=== PATIENT | female | born 1980 | race Caucasian/White ===

== ENCOUNTER 2018-11-03 10:09 | Inpatient (IN) ==
[2018-11-03 10:52] LABS: Basophils # (auto) 0.03 K/uL (0-0.2); Basophils % (auto) 0.4 %; Eosinophils # (auto) 0.06 K/uL (0-0.5); Eosinophils % (auto) 0.8 %; Hemoglobin 14.5 g/dL (12.0-16.0); Immature Granulocytes # (auto) 0.01 K/uL (0.00-0.02); Immature Granulocytes % (auto) 0.1 %; Lymphocytes # (auto) 1.79 K/uL (1.2-3.4); Lymphocytes % (auto) 24.4 %; Mean Corpuscular Hgb Conc 33.7 g/dL (32-36); Mean Corpuscular Volume 88.3 fL (80-100); Monocytes # (auto) 0.74 K/uL (0.11-0.59); Monocytes % (auto) 10.1 %; Neutrophils # (auto) 4.71 K/uL (1.4-6.5); Neutrophils % (auto) 64.2 %; Platelet Count 344 K/uL (130-400); RDW Coefficient of Variation 14.2 % (11.5-14.5); Red Blood Count 4.87 M/uL (4.2-5.4); White Blood Count 7.34 K/uL (4.8-10.8)
[2018-11-03 10:55] LABS: Appearance Urine Clear (Clear); Bacteria Urine Automated 1+ (Negative); Bilirubin Urine Negative (Negative); Blood Urine Negative (Negative); Cast Urine Automated 0 /lpf (0-5); Color Urine Yellow; Epithelial Cell Urine Auto >30 /lpf (0-5); Glucose Urine UA Negative (Negative); Ketones Urine Negative (Negative); Leukocyte Esterase Urine Trace (Negative); Nitrite Urine Negative (Negative); Protein Urine Negative (Negative); Specific Gravity Urine 1.013 (1.000-1.030); Urobilinogen Urine Negative (Negative); pH Urine 6.5 (4.5-7.5)
[2018-11-03 11:00] LABS: Albumin Level 3.6 gm/dl (3.4-5.0); BUN Creatinine Ratio 16.8 (10-20); Calcium 8.6 mg/dl (8.5-10.1); Est GFR (African American) 104.5; Est GFR (Non-African American) 90.1; Potassium 3.7 mmol/L (3.5-5.1)
[2018-11-03 11:06] LABS: Bilirubin,Total 0.4 mg/dl (0.2-1); Globulin 3.7 gm/dl (2.5-4.0); Total Protein 7.3 gm/dl (6.4-8.2)
[2018-11-03 11:09] LABS: RBC Urine Automated 0-4 /hpf (0-4)
[2018-11-03] MEDS ORDERED: KETOROLAC TROMETHAMINE 15 MG/ML VIAL IV STA (11:18)
[2018-11-03] MEDS ORDERED: ONDANSETRON INJ 2 MG/ML 2 ML VIAL IV STA (11:18)
[2018-11-03] MEDS: SODIUM CHLORIDE 0.9% 1000ML 1,000 ML IV SCH ×2 (11:27→13:53)
[2018-11-03] MEDS ORDERED: IOVERSOL 100ml IV PRN (11:33)
--- NOTE | 2018-11-03 11:49 | CT Scan Report ---
CT abd pelvis IV con only CLINICAL HISTORY: Abdominal pain, vomiting, diarrhea. COMPARISON STUDY: None. TECHNIQUE: The patient was scanned in a dynamic helical fashion during intravenous administration of 94 cc of Optiray 320 A dose lowering technique was utilized adhering to the principles of ALARA. CT DOSE: 1118.87 mGycm FINDINGS: Lower chest: Minimal groundglass dependent opacities are likely atelectatic. There are trace pleural effusions. Liver: The contrast-enhanced liver is normal in size, contour, and attenuation. There is no intrahepa tic biliary ductal dilatation. The hepatic veins and portal veins are patent. Gallbladder: No gallstones are visualized. There is mild gallbladder wall thickening/pericholecystic fluid. Spleen: Normal in size and attenuation. Pancreas: Unremarkable. Adrenal glands: Unremarkable. Kidneys: Subcentimeter renal hypodensities are felt to represent cysts. No solid renal masses are vis ualized. There is no hydronephrosis. Bowel: There are no transition zones indicate bowel obstruction. The appendix appears normal. There i s no acute diverticulitis. Peritoneum: There is trace free pelvic fluid. There is no free intraperitoneal air. Vasculature: The abdominal aorta is normal in course and caliber. Adenopathy: None. Pelvic viscera: The bladder, and pelvic viscera are unremarkable. Skeletal structures: No destructive lesions are visualized. Mild arthritic changes are present within the sacroiliac joints. IMPRESSION: 1. No evidence of bowel obstruction. No evidence of free air 2. Normal appendix 3. No evidence of acute diverticulitis 4. Mild gallbladder wall thickening/pericholecystic fluid. No gallbladder distention. No calculi visu alized on CT scanning. Electronically signed by: Tomy Ndiaye M.D. 11/03/2018 11:48 AM
[2018-11-03] MEDS ORDERED: MoRPHine SULFATE 4 MG/ML 1 ML CARP\\VIAL IV STA (11:56)
--- NOTE | 2018-11-03 12:14 | Emergency Department Note ---
History of Present Illness General Chief complaint: Vomiting Stated complaint: VOMITING Time Seen by Provider: 11/03/18 10:56 History of Present Illness Maximum Pain Intensity: 7 Patient is a 38-year-old female who with no significant past medical history who presents to the emergency department accompanied by her for evaluation of diffuse abdominal pain, nausea, vomiting and diarrhea x4 days. Patient states that she had the gradual onset of diffuse abdominal discomfort on , with associated nausea and vomiting. The pain was throughout her entire abdomen. She reports multiple episodes of yellowish, bitter tasting vomit and greenish diarrhea, with associated nausea and belching. She felt a little bit better on Saturday, then her symptoms worsened again last evening. She states the pain is now worse and located in the left upper quadrant and in the right upper quadrant and in the middle of her abdomen, and she currently rates it an 8/10. She denies any melena, hematochezia or hematemesis. She last vomited this morning at 0530, her last diarrhea was yesterday. She has been on a fairly restricted diet for the last several months and has resulted in over 50 pounds weight loss. She has been taking a lot of vitamins, herbals and supplements. She reports that her has not been ill, she denies any unusual food or water consumption, recent antibiotic use or foreign travel. 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 Patient denies any history of GI issues. She does report that her mother had her gallbladder removed. She denies any urinary symptoms. Last menstrual period was normal, and it was 1 week ago. She does report that she could be . Home Medications Home Medications Medication Instructions Recorded Confirmed Type Liver Support 1 tab PO DAILY 11/03/18 11/03/18 History bee pollen 550 mg PO UD 11/03/18 11/03/18 History coenzyme Q10 [CoQ-10] 30 mg PO Q2D 11/03/18 11/03/18 History lactobacillus combination no.4 3,000 mmu cells PO DAILY 11/03/18 11/03/18 History [Probiotic] multivitamin 1 tab PO DAILY 11/03/18 11/03/18 History simethicone [Phazyme] 250 mg PO DAILY PRN 11/03/18 11/03/18 History Allergies Allergy/AdvReac Type Severity Reaction Status Date / Time azithromycin AdvReac Severe itchy Unverified 11/03/18 11:05 swollen body ~ difficulty breathing procaine [From Novocain] AdvReac Intermediate Patient Unverified 11/03/18 11:05 states it just doesn't work tuberculin,PPD,multi-puncture AdvReac Intermediate red~itchy~s Unverified 11/03/18 11:05 wolnay Past Med/Surg History Medical History No significant past medical history (Chronic) Surgical History No significant past surgical history (Chronic) Family History Other Cancer Diabetes Social History Preferred Language: Hungarian Communication Ability: Effective Salvage Diver Required: No Beliefs That Will Affect Care: None marital status: Current Living Situation: Spouse Feels Safe at Home: Yes Smoking Status: Never smoker Second Hand Exposure: No ; Hx Alcohol Use: No Hx Substance Use: No during the past year weight has: decreased > 10 lbs Review of Systems A total of 10 systems reviewed and were otherwise negative Physical Exam Vital Signs Vital Signs - 24 hr 11/03/18 10:11 11/03/18 11:53 Temperature 36.9 C Temperature Source Oral Sepsis Recent Fever Within 48 Hours No Sepsis Action Taken by Nursing No Action Required Pulse Rate 86 Pulse Rate [Apical] 52 L Respiratory Rate 18 18 Blood Pressure 190/100 H Blood Pressure [Left Arm] 113/78 Blood Pressure Mean 130 Blood Pressure Mean [Left Arm] 89 Pulse Oximetry 100 100 Oxygen Delivery Method Room Air Room Air CONSTITUTIONAL: Patient is an uncomfortable although nontoxic appearing 38-year-old female who is awake and alert and in mild distress due to her abdominal discomfort. EYES: Pupils equal, round, reactive to light and accommodation. EOMs intact without nystagmus. Sclera are anicteric. ENT: Tympanic membranes intact, with normal landmarks. External canals are clear. Oral and nasopharynx are clear. Mucous membranes are moist, no lesions, tongue and gums appear normal. NECK: Supple without lymphadenopathy. No thyromegaly. No meningeal signs. Full active range of motion without discomfort. CARDIOVASCULAR: Regular rate and rhythm, with normal S1 and S2, no murmur or gallop or rub is heard. No carotid bruits auscultated. No JVD. Peripheral pulses easily palpable. RESPIRATORY: Breath sounds equal and clear to auscultation without wheezes, rales, or rhonchi heard. Full and equal chest expansion without accessory muscle use or retractions. ABDOMEN: Bowel sounds are present. Abdomen is soft, obese, nondistended, mildly tender to percussion throughout. She is tender in the epigastric and the left upper quadrant. No significant pain in the right upper quadrant. Negative Duncan sign. She is also tender in the mid abdomen and suprapubic region withou t guarding or rebound. INTEGUMENTARY: No lesions or rash, normal skin turgor. LYMPH: No lymphadenopathy. Course The patient was seen and assessed as above. She has no old records for review. IV lock was initiated and laboratory studies were collected. She was hydrated with normal saline solution. She was medicated with Toradol 15 mg IV, later was given morphine 4 mg IV and Zofran 4 mg IV. CBC with differential, CMP, lipase, urinalysis and urine test were collected. Given the patient's diffuse abdominal pain, CT scan with IV contrast was ordered. Laboratory studies noted a normal white count at 7300, no left shift or bandemia . H&H is 15 and 43. Electrolytes are within normal limits. BUN and creatinine 14 and 0.82. Total bilirubin is normal, transaminases are elevated, AST 403, ALT 351 and alk phos 167. Patient's lipase is markedly elevated at 35,900. Urine sample noted trace leuk esterase and 1+ bacteria, urine test is negative. CT scan of the abdomen and pelvis with IV contrast noted mild gallbladder wall thickening/pericholecystic fluid, with no visualized gallstones or gallbladder distention. Pancreas was also visualized and was normal. Remainder of the CT was unremarkable. All laboratory and diagnostic imaging studies were discussed with the patient and her spouse. Laboratory and diagnostic imaging studies were reviewed with Dr. Skelton, and admission was discussed with the manager community outreach. I did review the patient with Dr. Serrano with the [facility], she did ask that a gallbladder ultrasound be obtained, this was ordered by myself. Patient was admitted to the hospitalist service for acute pancreatitis. Administered Medications Lactated Ringer's (Lr) 1,000 mls @ 250 mls/hr IV .Q4H PARK Stop: 11/04/18 02:29 Last Admin: 11/03/18 14:26 Dose: 250 mls/hr Documented by: [id number] Ioversol (Optiray 320 100ml) 94 ml IV ONCE PRN PRN Reason: Interaction Checking Stop: 11/07/18 11:32 Last Admin: 11/03/18 11:33 Dose: 94 ml Documented by: [id number] Discontinued Medications Sodium Chloride (Nss 1000ml) 1,000 mls @ 999 mls/hr IV .Q1H1M PARK Stop: 11/03/18 13:19 Last Admin: 11/03/18 13:53 Dose: 999 mls/hr Documented by: [id number] Infusion: 11/03/18 12:58 Dose: 0 mls/hr Documented by: [id number] Admin: 11/03/18 11:27 Dose: 999 mls/hr Documented by: [id number] Ketorolac Tromethamine (Toradol) 15 mg IV NOW STA Stop: 11/03/18 11:19 Last Admin: 11/03/18 11:28 Dose: 15 mg Documented by: [id number] Morphine Sulfate (Morphine Sulfate) 4 mg IV NOW STA Stop: 11/03/18 11:57 Last Admin: 11/03/18 12:08 Dose: 4 mg Documented by: [id number] Ondansetron HCl (Zofran) 4 mg IV NOW STA Stop: 11/03/18 11:19 Last Admin: 11/03/18 11:28 Dose: 4 mg Documented by: [id number] Medical Decision Making Differential Diagnosis Differential diagnoses include reflux, gastritis, gastroenteritis, pancreatitis, cholelithiasis, cholecystitis, appendicitis, mesenteric ischemia, pyelonephritis, urinary tract infection, renal colic, diverticulitis, shingles, bowel obstruction, intussusception, hernia, ovarian torsion, ruptured ovarian cyst, ectopic , . Medical Records Attestation: I reviewed the patient's medical records. Home Medications Current Medication List: was personally reviewed by me Laboratory Data Attestation: I reviewed the patient's lab results. Result diagrams: 11/03/18 10:28 11/03/18 10:28 Lab Results 11/03/18 11/03/18 11/03/18 Range/Units 10:28 10:28 10:28 WBC 7.34 (4.8-10.8) K/uL RBC 4.87 (4.2-5.4) M/uL Hgb 14.5 (12.0-16.0) g/dL Hct 43.0 (37-47) % MCV 88.3 (80-100) fL MCH 29.8 (25-34) pg MCHC 33.7 (32-36) g/dL RDW Std Deviation 46.0 (36.4-46.3) fL RDW Coeff of Josseline 14.2 (11.5-14.5) % Plt Count 344 (130-400) K/uL MPV 11.0 H (7.4-10.4) fL Immature Gran % (Auto) 0.1 % Neut % (Auto) 64.2 % Lymph % (Auto) 24.4 % Emanuel % (Auto) 10.1 % Eos % (Auto) 0.8 % Baso % (Auto) 0.4 % Immature Gran # (Auto) 0.01 (0.00-0.02) K/uL Neut # (Auto) 4.71 (1.4-6.5) K/uL Lymph # (Auto) 1.79 (1.2-3.4) K/uL Emanuel # (Auto) 0.74 H (0.11-0.59) K/uL Eos # (Auto) 0.06 (0-0.5) K/uL Baso # (Auto) 0.03 (0-0.2) K/uL Sodium 142 (136-145) mmol/L Potassium 3.7 (3.5-5.1) mmol/L Chloride 108 H (98-107) mmol/L Carbon Dioxide 27 (21-32) mmol/L Anion Gap 7.0 (3-11) BUN 14 (7-18) mg/dl Creatinine 0.82 (0.6-1.2) mg/dl Est Cr Clr Drug Dosing 113.0 ml/min Est GFR ( Amer) 104.5 Est GFR (Non-Af Amer) 90.1 BUN/Creatinine Ratio 16.8 (10-20) Glucose 85 (70-99) mg/dl Calcium 8.6 (8.5-10.1) mg/dl Total Bilirubin 0.4 (0.2-1) mg/dl AST 403 H (15-37) U/L ALT 351 H (12-78) U/L Alkaline Phosphatase 167 H (45-117) U/L Total Protein 7.3 (6.4-8.2) gm/dl Albumin 3.6 (3.4-5.0) gm/dl Globulin 3.7 (2.5-4.0) gm/dl Albumin/Globulin Ratio 1.0 (0.9-2) Lipase 83596 H (73-393) U/L Urine Color Urine Appearance (Clear) Urine pH (4.5-7.5) Ur Specific [place] (1.000-1.030) Urine Protein (Negative) Urine Glucose (UA) (Negative) Urine Ketones (Negative) Urine Blood (Negative) Urine Nitrite (Negative) Urine Bilirubin (Negative) Urine Urobilinogen (Negative) Ur Leukocyte Esterase (Negative) Urine WBC (Auto) (0-5) /hpf Urine RBC (Auto) (0-4) /hpf U Hyaline Cast (Auto) (0-5) /lpf U Epithel Cells (Auto) (0-5) /lpf Urine Bacteria (Auto) (Negative) POC Ur Test NEG (NEG) 11/03/18 Range/Units 10:28 WBC (4.8-10.8) K/uL RBC (4.2-5.4) M/uL Hgb (12.0-16.0) g/dL Hct (37-47) % MCV (80-100) fL MCH (25-34) pg MCHC (32-36) g/dL RDW Std Deviation (36.4-46.3) fL RDW Coeff of Josseline (11.5-14.5) % Plt Count (130-400) K/uL MPV (7.4-10.4) fL Immature Gran % (Auto) % Neut % (Auto) % Lymph % (Auto) % Emanuel % (Auto) % Eos % (Auto) % Baso % (Auto) % Immature Gran # (Auto) (0.00-0.02) K/uL Neut # (Auto) (1.4-6.5) K/uL Lymph # (Auto) (1.2-3.4) K/uL Emanuel # (Auto) (0.11-0.59) K/uL Eos # (Auto) (0-0.5) K/uL Baso # (Auto) (0-0.2) K/uL Sodium (136-145) mmol/L Potassium (3.5-5.1) mmol/L Chloride (98-107) mmol/L Carbon Dioxide (21-32) mmol/L Anion Gap (3-11) BUN (7-18) mg/dl Creatinine (0.6-1.2) mg/dl Est Cr Clr Drug Dosing ml/min Est GFR ( Amer) Est GFR (Non-Af Amer) BUN/Creatinine Ratio (10-20) Glucose (70-99) mg/dl Calcium (8.5-10.1) mg/dl Total Bilirubin (0.2-1) mg/dl AST (15-37) U/L ALT (12-78) U/L Alkaline Phosphatase (45-117) U/L Total Protein (6.4-8.2) gm/dl Albumin (3.4-5.0) gm/dl Globulin (2.5-4.0) gm/dl Albumin/Globulin Ratio (0.9-2) Lipase (73-393) U/L Urine Color Yellow Urine Appearance Clear (Clear) Urine pH 6.5 (4.5-7.5) Ur Specific [place] 1.013 (1.000-1.030) Urine Protein Negative (Negative) Urine Glucose (UA) Negative (Negative) Urine Ketones Negative (Negative) Urine Blood Negative (Negative) Urine Nitrite Negative (Negative) Urine Bilirubin Negative (Negative) Urine Urobilinogen Negative (Negative) Ur Leukocyte Esterase Trace H (Negative) Urine WBC (Auto) 1-5 (0-5) /hpf Urine RBC (Auto) 0-4 (0-4) /hpf U Hyaline Cast (Auto) 0 (0-5) /lpf U Epithel Cells (Auto) >30 H (0-5) /lpf Urine Bacteria (Auto) 1+ H (Negative) POC Ur Test (NEG) Imaging Data Attestation: I personally reviewed and interpreted this imaging study as follows: Radiologist's Impression: CT abd pelvis IV con only CLINICAL HISTORY: Abdominal pain, vomiting, diarrhea. COMPARISON STUDY: None. TECHNIQUE: The patient was scanned in a dynamic helical fashion during intrave nous administration of 94 cc of Optiray 320 A dose lowering technique was utilized adhering to the principles of ALARA. CT DOSE: 1118.87 mGycm FINDINGS: Lower chest: Minimal groundglass dependent opacities are likely atelectatic. There are trace pleural effusions. Liver: The contrast-enhanced liver is normal in size, contour, and attenuation. There is no intrahepatic biliary ductal dilatation. The hepatic veins and portal veins are patent. Gallbladder: No gallstones are visualized. There is mild gallbladder wall thickening/pericholecystic fluid. Spleen: Normal in size and attenuation. Pancreas: Unremarkable. Adrenal glands: Unremarkable. Kidneys: Subcentimeter renal hypodensities are felt to represent cysts. No solid renal masses are visualized. There is no hydronephrosis. Bowel: There are no transition zones indicate bowel obstruction. The appendix appears normal. There is no acute diverticulitis. Peritoneum: There is trace free pelvic fluid. There is no free intraperitoneal air. Vasculature: The abdominal aorta is normal in course and caliber. Adenopathy: None. Pelvic viscera: The bladder, and pelvic viscera are unremarkable. Skeletal structures: No destructive lesions are visualized. Mild arthritic changes are present within the sacroiliac joints. IMPRESSION: 1. No evidence of bowel obstruction. No evidence of free air 2. Normal appendix 3. No evidence of acute diverticulitis 4. Mild gallbladder wall thickening/pericholecystic fluid. No gallbladder dist ention. No calculi visualized on CT scanning. US gallbladder CLINICAL HISTORY: Right upper quadrant pain. Evaluate for acute cholecystitis. COMPARISON STUDY: CT of the abdomen and pelvis November 13, 2018. FINDINGS: This exam is compromised by suboptimal penetration. Liver is sonographically normal. There is no biliary ductal dilatation. The common bile duct measures 3 mm in caliber. The pancreas is within normal limits. Multiple gallstones are noted within the gallbladder. No sonographic Duncan sign was elicited. Mild gallbladder wall thickening is noted. The wall measures 4 mm in thickness. No adjacent fluid was noted. There is no right hydronephrosis. IMPRESSION: 1. Cholelithiasis and mild gallbladder wall thickening. No sonographic Duncan sign. Acute cholecystitis cannot be excluded and a hepatobiliary scan could be obtained if indicated. 2. No biliary ductal dilatation. Blood Pressure Blood Pressure Findings: Normal blood pressure Blood Pressure Disposition: did not require urgent referral MDM Narrative See ED Course. Impression & Plan Acute pancreatitis Discharge Plan Visit Data *Final* Discharge Date/Time: 11/03/18 13:54 Chief Complaint: Vomiting Stated Complaint: VOMITING ED Provider: Shilo Skelton ED Midlevel Provider: Brock Mitchell Discharge Problem: Acute pancreatitis Patient Disposition: Admitted As Inpatient Discharge Instructions Interventions: ED Discharge Assessment Last Done: 11/03/18 13:54 Discharge Problem: Acute pancreatitis Qualifiers: Pancreatitis type: unspecified pancreatitis type Acute pancreatitis complication: no infection or necrosis Qualified Code(s): K85.90 - Acute pancreatitis without necrosis or infection, unspecified
--- NOTE | 2018-11-03 13:20 | History & Physical Report ---
Date of Service November 03, 2018 Assessment & Plan (1) Acute pancreatitis: Patient presenting with abdominal pain, nausea, vomiting, diarrhea. Lipase = 35,941. Patient is tender in the epigastric area. CT with no evidence of pancreatic inflammation. Admit to medical floor Check right upper quadrant ultrasound. Additional imaging such as MRCP pending results of ultrasound. Keep n.p.o. Aggressive IV fluids, LR at 250 mL/h x 3 L Zofran as needed for nausea Morphine as needed for pain GI consultation. Appreciate assistance with this case -Repeat LFTs in a.m. Present on Admission?: Yes (2) Abnormal liver function test: Patient with elevation of AST and ALT to 403 and 351, respectively. Also with elevation of alkaline phosphatase = 167. Total bilirubin is within normal range. Patient denies alcohol or Tylenol use. No known exposure to contaminated foods. -Check Tylenol level -Check acute hepatitis panel -Check INR -Right upper quadrant ultrasound as above -GI consultation as above -Repeat LFTs in a.m. Present on Admission?: Yes (3) Obesity (BMI 35.0-39.9 without comorbidity): Patient with BMI of 37.5. She is presently on a restrictive diet and is eating only protein/vegetables/fruit. Also on very tight calorie restriction of 600 to 650 pete/day. Discussed with her that this is too restrictive and may actually lead to health complications. She is also been experiencing some dizziness with positional changes as well as poor balance. -Check orthostatic vital signs x1 -Check B12 and folate -Patient should be encouraged to continue with her positive life changes to include healthy diet, limitation of carbohydrates and sugar and increased physical exercise. However, concerned that she has been too restrictive possibly leading to low blood sugar, orthostasis and nutritional deficiencies. Consider nutrition consult to be deferred to the primary team. FENLR at 250 mL/h x 3 L, electrolytes within normal limits, check magnesium and phosphorus x1, n.p.o. for now in setting of acute pancreatitis Prophylaxispatient is low risk for DVT. IV fluids as above and encourage ambulation as tolerated. Codefull per discussion with patient. at bedside Dispositionadmission to medical floor for acute pancreatitis and abnormal liver studies History of Present Illness Chief Complaint: Abdominal pain, nausea, vomiting, diarrhea Primary Care Provider: NO PCP Shirley Arita is a 38-year-old female with no significant past medical or surgical history presenting with nausea/vomiting/diarrhea/abdominal pain. Patient reports that 2 weeks ago she developed diffuse mild abdominal pain with bloating and an increase in eructation and flatulence. She started taking simethicone daily for relief. On 10/28 she was in the garden when she had a "blackout". She states that her vision went dark and she was unable to see for short time. On 10/30 she developed severe diffuse abdominal pain, 10 out of 10 in severity, worse in the epigastric region and left upper quadrant. She also started vomiting, multiple episodes of nonbloody emesis. She reports vomiting in the evening and throughout the night and is mostly ingested food as well as yellow liquid. Diarrhea began night as well. Large volume of yellow liquid stools, 8-10 episodes, nonbloody. She has poor appetite and decreased p.o. intake. Yesterday, 11/02 she had a near syncopal episode while in religious. Her mother gave her a Validol tab (Menthyl isovalerate - hypnotic/sedative agent used in [place]). She reports frequent dizziness over the last few weeks mostly with positional changes as well as diffuse weakness. Patient has been on a strict diet since May. She eats only protein/meat, vegetables and limited fruits. She has not been eating carbohydrates, dairy, alcohol or sugar. She reports losing approximately 53 pounds since May. She is also been on a strict calorie restriction, 600 to 650 pete/day. She has been taking supplements while on her diet to include B pollen, co-Q10, probiotic and Liver Support. She recently added dairy back into her diet in the form of milk yogurt which she has been eating in small amounts. Presently she is complaining of abdominal pain mostly in the epigastric and left upper quadrant region. Also complaining of constipation. Reports her last episode of flatus was yesterday morning and her last bowel movement was yesterday at 1400. Also with complaint of dysuria. ER course: Toradol 50 mill grams IV, morphine 4 mg IV, Zofran 4 mg IV, normal saline 1 L Allergies Allergy/AdvReac Type Severity Reaction Status Date / Time azithromycin AdvReac Severe itchy Unverified 11/03/18 11:05 swollen body ~ difficulty breathing procaine [From Novocain] AdvReac Intermediate Patient Unverified 11/03/18 11:05 states it just doesn't work tuberculin,PPD,multi-puncture AdvReac Intermediate red~itchy~s Unverified 11/03/18 11:05 bogdan Home Medications Home Medications Medication Instructions Recorded Confirmed Type Liver Support 1 tab PO DAILY 11/03/18 11/03/18 History bee pollen 550 mg PO UD 11/03/18 11/03/18 History coenzyme Q10 [CoQ-10] 30 mg PO Q2D 11/03/18 11/03/18 History lactobacillus combination no.4 3,000 mmu cells PO DAILY 11/03/18 11/03/18 History [Probiotic] multivitamin 1 tab PO DAILY 11/03/18 11/03/18 History simethicone [Phazyme] 250 mg PO DAILY PRN 11/03/18 11/03/18 History Past Med/Surg History Medical History No significant past medical history No significant past surgical history Family History Other Cancer Diabetes Social History Communication Ability: Effective marital status: Current Living Situation: Spouse Feels Safe at Home: Yes Smoking Status: Never smoker Hx Alcohol Use: No Hx Substance Use: No during the past year weight has: decreased > 10 lbs Review of Systems Review of Systems: All systems reviewed & are unremarkable except as noted in HPI & below Physical Exam Physical Exam: General: patient resting comfortably, NAD, non-toxic in appearance, AA&O x 4 Skin: warm, dry, intact, no rashes or lesions, no jaundice HEENT: NC/AT, PERRL, EOMI, anicteric sclera, conjunctiva without injection, external ear normal to inspection and nontender, nares patent, slightly dry mucus membranes, dentition intact, no oropharyngeal lesions, neck supple, trachea midline, no LAD, no thyromegaly, no JVD Heart: +S1/S2, regular, bradycardic, no m/r/g Lungs: equal air entry bilaterally, no rales/rhonchi/wheezes Abd: +BS, soft, ND, diffusely tender with deep palpation, no rebound/guarding/peritoneal signs, no masses/organomegaly/ascites Ext: warm, 2+ pulses in UE/LE bilaterally, no clubbing/cyanosis or edema Neuro: nonfocal, patient AA&O x 4, speech intact, no facial droop, moving all extremities on command with equal strength 5/5 Results & Data Vital Signs (Past 12 Hours) Vital Signs Temp Pulse Pulse Resp BP BP Pulse Ox 11/03/18 11:53 52 L 18 113/78 100 11/03/18 10:11 36.9 C 86 18 190/100 H 100 Laboratory Results Lab Results 11/03/18 11/03/18 11/03/18 Range/Units 10:28 10:28 10:28 WBC 7.34 (4.8-10.8) K/uL RBC 4.87 (4.2-5.4) M/uL Hgb 14.5 (12.0-16.0) g/dL Hct 43.0 (37-47) % MCV 88.3 (80-100) fL MCH 29.8 (25-34) pg MCHC 33.7 (32-36) g/dL RDW Std Deviation 46.0 (36.4-46.3) fL RDW Coeff of [place] 14.2 (11.5-14.5) % Plt Count 344 (130-400) K/uL MPV 11.0 H (7.4-10.4) fL Immature Gran % (Auto) 0.1 % Neut % (Auto) 64.2 % Lymph % (Auto) 24.4 % [place] % (Auto) 10.1 % Eos % (Auto) 0.8 % Baso % (Auto) 0.4 % Immature Gran # (Auto) 0.01 (0.00-0.02) K/uL Neut # (Auto) 4.71 (1.4-6.5) K/uL Lymph # (Auto) 1.79 (1.2-3.4) K/uL [place] # (Auto) 0.74 H (0.11-0.59) K/uL Eos # (Auto) 0.06 (0-0.5) K/uL Baso # (Auto) 0.03 (0-0.2) K/uL Sodium 142 (136-145) mmol/L Potassium 3.7 (3.5-5.1) mmol/L Chloride 108 H (98-107) mmol/L Carbon Dioxide 27 (21-32) mmol/L Anion Gap 7.0 (3-11) BUN 14 (7-18) mg/dl Creatinine 0.82 (0.6-1.2) mg/dl Est Cr Clr Drug Dosing 113.0 ml/min Est GFR ( Amer) 104.5 Est GFR (Non-Af Amer) 90.1 BUN/Creatinine Ratio 16.8 (10-20) Glucose 85 (70-99) mg/dl Calcium 8.6 (8.5-10.1) mg/dl Total Bilirubin 0.4 (0.2-1) mg/dl AST 403 H (15-37) U/L ALT 351 H (12-78) U/L Alkaline Phosphatase 167 H (45-117) U/L Total Protein 7.3 (6.4-8.2) gm/dl Albumin 3.6 (3.4-5.0) gm/dl Globulin 3.7 (2.5-4.0) gm/dl Albumin/Globulin Ratio 1.0 (0.9-2) Lipase 41162 H (73-393) U/L Urine Color Urine Appearance (Clear) Urine pH (4.5-7.5) Ur Specific [place] (1.000-1.030) Urine Protein (Negative) Urine Glucose (UA) (Negative) Urine Ketones (Negative) Urine Blood (Negative) Urine Nitrite (Negative) Urine Bilirubin (Negative) Urine Urobilinogen (Negative) Ur Leukocyte Esterase (Negative) Urine WBC (Auto) (0-5) /hpf Urine RBC (Auto) (0-4) /hpf U Hyaline Cast (Auto) (0-5) /lpf U Epithel Cells (Auto) (0-5) /lpf Urine Bacteria (Auto) (Negative) POC Ur Test NEG (NEG) 11/03/18 Range/Units 10:28 WBC (4.8-10.8) K/uL RBC (4.2-5.4) M/uL Hgb (12.0-16.0) g/dL Hct (37-47) % MCV (80-100) fL MCH (25-34) pg MCHC (32-36) g/dL RDW Std Deviation (36.4-46.3) fL RDW Coeff of [place] (11.5-14.5) % Plt Count (130-400) K/uL MPV (7.4-10.4) fL Immature Gran % (Auto) % Neut % (Auto) % Lymph % (Auto) % [place] % (Auto) % Eos % (Auto) % Baso % (Auto) % Immature Gran # (Auto) (0.00-0.02) K/uL Neut # (Auto) (1.4-6.5) K/uL Lymph # (Auto) (1.2-3.4) K/uL [place] # (Auto) (0.11-0.59) K/uL Eos # (Auto) (0-0.5) K/uL Baso # (Auto) (0-0.2) K/uL Sodium (136-145) mmol/L Potassium (3.5-5.1) mmol/L Chloride (98-107) mmol/L Carbon Dioxide (21-32) mmol/L Anion Gap (3-11) BUN (7-18) mg/dl Creatinine (0.6-1.2) mg/dl Est Cr Clr Drug Dosing ml/min Est GFR ( Amer) Est GFR (Non-Af Amer) BUN/Creatinine Ratio (10-20) Glucose (70-99) mg/dl Calcium (8.5-10.1) mg/dl Total Bilirubin (0.2-1) mg/dl AST (15-37) U/L ALT (12-78) U/L Alkaline Phosphatase (45-117) U/L Total Protein (6.4-8.2) gm/dl Albumin (3.4-5.0) gm/dl Globulin (2.5-4.0) gm/dl Albumin/Globulin Ratio (0.9-2) Lipase (73-393) U/L Urine Color Yellow Urine Appearance Clear (Clear) Urine pH 6.5 (4.5-7.5) Ur Specific [place] 1.013 (1.000-1.030) Urine Protein Negative (Negative) Urine Glucose (UA) Negative (Negative) Urine Ketones Negative (Negative) Urine Blood Negative (Negative) Urine Nitrite Negative (Negative) Urine Bilirubin Negative (Negative) Urine Urobilinogen Negative (Negative) Ur Leukocyte Esterase Trace H (Negative) Urine WBC (Auto) 1-5 (0-5) /hpf Urine RBC (Auto) 0-4 (0-4) /hpf U Hyaline Cast (Auto) 0 (0-5) /lpf U Epithel Cells (Auto) >30 H (0-5) /lpf Urine Bacteria (Auto) 1+ H (Negative) POC Ur Test (NEG) Diagnostic Findings CT abd pelvis IV con only CLINICAL HISTORY: Abdominal pain, vomiting, diarrhea. COMPARISON STUDY: None. TECHNIQUE: The patient was scanned in a dynamic helical fashion during intravenous administration of 94 cc of Optiray 320 A dose lowering technique was utilized adhering to the principles of ALARA. CT DOSE: 1118.87 mGycm FINDINGS: Lower chest: Minimal groundglass dependent opacities are likely atelectatic. There are trace pleural effusions. Liver: The contrast-enhanced liver is normal in size, contour, and attenuation. There is no intrahepatic biliary ductal dilatation. The hepatic veins and portal veins are patent. Gallbladder: No gallstones are visualized. There is mild gallbladder wall thickening/pericholecystic fluid. Spleen: Normal in size and attenuation. Pancreas: Unremarkable. Adrenal glands: Unremarkable. Kidneys: Subcentimeter renal hypodensities are felt to represent cysts. No solid renal masses are visualized. There is no hydronephrosis. Bowel: There are no transition zones indicate bowel obstruction. The appendix appears normal. There is no acute diverticulitis. Peritoneum: There is trace free pelvic fluid. There is no free intraperitoneal air. Vasculature: The abdominal aorta is normal in course and caliber. Adenopathy: None. Pelvic viscera: The bladder, and pelvic viscera are unremarkable. Skeletal structures: No destructive lesions are visualized. Mild arthritic changes are present within the sacroiliac joints. IMPRESSION: 1. No evidence of bowel obstruction. No evidence of free air 2. Normal appendix 3. No evidence of acute diverticulitis 4. Mild gallbladder wall thickening/pericholecystic fluid. No gallbladder distention. No calculi visualized on CT scanning. Electronically signed by: Tomy Ndiaye M.D. 11/03/2018 11:48 AM Dictated: 11/03/18 1142 Transcribed: 11/03/18 1142 Code Status & VTE Plan Code Status Full code VTE Prophylaxis Plan VTE Prophylaxis will be ordered: No Reason for no VTE drug order: Treatment not indicated Reason for no VTE mechanical prophylaxis: Treatment not indicated PG Care Time/CCT Total # of Minutes Spent Total Time Spent with Patient: Total time spent is greater than 50% in coordination of care (as documented) at patient's floor/unit and/or counseling patient: (1) Acute pancreatitis Acute pancreatitis complication: no infection or necrosis Pancreatitis type: unspecified pancreatitis type Qualified Code(s): K85.90 - Acute pancreatitis without necrosis or infection, unspecified
--- NOTE | 2018-11-03 13:48 | Ultrasound Report ---
US gallbladder CLINICAL HISTORY: Right upper quadrant pain. Evaluate for acute cholecystitis. COMPARISON STUDY: CT of the abdomen and pelvis November 13, 2018. FINDINGS: This exam is compromised by suboptimal penetration. Liver is sonographically normal. There is no biliary ductal dilatation. The common bile duct measures 3 mm in caliber. The pancreas is withi n normal limits. Multiple gallstones are noted within the gallbladder. No sonographic Duncan sign was elicited. Mild gallbladder wall thickening is noted. The wall measures 4 mm in thickness. No adjacen t fluid was noted. There is no right hydronephrosis. IMPRESSION: 1. Cholelithiasis and mild gallbladder wall thickening. No sonographic Duncan sign. Acute cholecystit is cannot be excluded and a hepatobiliary scan could be obtained if indicated. 2. No biliary ductal dilatation. Electronically signed by: Luis Daiz M.D. 11/03/2018 1:47 PM
[2018-11-03] MEDS ORDERED: MoRPHine SULFATE 2 MG/ML CARP IV PRN (14:18)
[2018-11-03] MEDS ORDERED: ONDANSETRON INJ 2 MG/ML 2 ML VIAL IV PRN (14:18)
[2018-11-03] MEDS: LACTATED RINGER'S 1,000 ML IV SCH ×3 (14:26→23:46)
[2018-11-03 15:04] LABS: INR 1.1 (0.9-1.1); Prothrombin Time 10.8 Seconds (9.0-12.0)
[2018-11-03 15:47] LABS: Folate (Folic Acid) 13.37 ng/ml (>5.38)
[2018-11-03 15:53] LABS: Magnesium 2.6 mg/dl (1.8-2.4); Phosphorus 2.6 mg/dl (2.5-4.9)
[2018-11-03 16:47] LABS: Hepatitis B Surface Antigen Neg (Neg)
[2018-11-03 17:16] LABS: Hepatitis C IgG 13Yrs+Old_Rflx Neg (Neg)
--- NOTE | 2018-11-03 17:41 | Gastrointestinal Consultation ---
Date of Consultation November 03, 2018 Assessment & Plan (1) Acute pancreatitis: (2) Cholelithiasis: Most likely cause of patient's pancreatitis is secondary to gallstones. No evidence of biliary ductal dilation or hyperbilirubinemia at present Check MRCP now, if +, will need ERCP tomorrow with Dr. Palza If MRCP -, recommend cholecystectomy during this hospitalization secondary to risk of recurrent pancreatitis. I did discuss this case with Dr. Granado of surgery. Continue supportive care with IVF, Narcotic analgesics, and antiemetics. History of Present Illness Reason for Consultation: Elevated Liver panel and lipase Attending Physician: Sujata Serrano, DO History of Present Illness Shirley Arita is a pleasant 38 yo female who presented to the ER today with complaints of diffuse abdominal pain. She stated that her pain began approximately 4 days ago, and was associated with nausea, vomiting and diarrhea. She stated that her pain in the ER was 8/10 in intensity, diffuse, without alleviating factors. She had a liver panel in the ER with Total bili 0.4, AST 403, ALT 351, and Alk phos of 167. Her lipase was 35,941. She subsequently had a CT abd/pelvis which showed mild Gallbladder wall thickening with evidence of pericholecystic fluid. A RUQ US showed cholelithiasis with gallbladder wall thickening, but no biliary ductal dilation. She was given aggressive fluid hydration with LR at 250 ml/hr. antiemetics, and narcotic analgesics. At the time I saw the patient, she continued to have complaints of abdominal pain rated as 6/10 in intensity, non-radiating, described as a chronic ache, worsened with movement, and improved with narcotic analgesics. She denies any further vomitin g. She states that she has never had pancreatitis in the past, and does not drink alcohol. She has no family history of pancreatitis or pancreatic cancer. She does not smoke. She has no further complaints. Allergies Allergy/AdvReac Type Severity Reaction Status Date / Time azithromycin AdvReac Severe itchy Unverified 11/03/18 11:05 swollen body ~ difficulty breathing procaine [From Novocain] AdvReac Intermediate Patient Unverified 11/03/18 11:05 states it just doesn't work tuberculin,PPD,multi-puncture AdvReac Intermediate red~itchy~s Unverified 11/03/18 11:05 [facility] Home Medications Home Medications Medication Instructions Recorded Confirmed Type Liver Support 1 tab PO DAILY 11/03/18 11/03/18 History bee pollen 550 mg PO UD 11/03/18 11/03/18 History coenzyme Q10 [CoQ-10] 30 mg PO Q2D 11/03/18 11/03/18 History lactobacillus combination no.4 3,000 mmu cells PO DAILY 11/03/18 11/03/18 History [Probiotic] multivitamin 1 tab PO DAILY 11/03/18 11/03/18 History simethicone [Phazyme] 250 mg PO DAILY PRN 11/03/18 11/03/18 History Patient History Medical History No significant past medical history (Chronic) Surgical History No significant past surgical history (Chronic) Family History Other Cancer Diabetes Social History Preferred Language: [place] Communication Ability: Effective 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 Beliefs That Will Affect Care: None marital status: Current Living Situation: Spouse Feels Safe at Home: Yes Smoking Status: Never smoker Second Hand Exposure: No ; Hx Alcohol Use: No Hx Substance Use: No during the past year weight has: decreased > 10 lbs Review of Systems Review of Systems: All systems reviewed & are unremarkable except as noted in HPI & below Physical Exam Constitutional: + obese Neck: Soft, Supple, No JVD Respiratory: normal respiratory effort, lungs clear to auscultation Cardiovascular: RRR, no murmur, no edema Gastrointestinal (Abdomen): normal bowel sounds, soft, nontender, no hepatosplenomegaly Skin: no rashes, warm and dry Psychiatric: A+Ox3, euthymic affect Results & Data Vital Signs (Past 12 Hours) Vital Signs Temp Pulse Pulse Resp BP BP Pulse Ox 11/03/18 14:19 36.6 C 66 18 135/83 99 11/03/18 13:54 18 137/88 100 11/03/18 11:53 52 L 18 113/78 100 11/03/18 10:11 36.9 C 86 18 190/100 H 100 PG Care Time/CCT Total # of Minutes Spent Total Time Spent with Patient: Total time spent is greater than 50% in telehealth coordinator rdination of care (as documented) at patient's floor/unit and/or counseling patient: (1) Acute pancreatitis Acute pancreatitis complication: no infection or necrosis Pancreatitis type: unspecified pancreatitis type Qualified Code(s): K85.90 - Acute pancreatitis without necrosis or infection, unspecified
--- NOTE | 2018-11-03 19:00 | Surgery Consultation ---
Date of Consultation November 03, 2018 Assessment & Plan (1) Acute gallstone pancreatitis: 38-year-old female with acute pancreatitis likely related to gallstones. She is currently feeling better. We discussed the etiology of gallstones and gallstone pancreatitis and also the fact that she did have some possible cholecystitis on her imaging studies. Typically we allow the pancreatitis to clinically improve. I agree with the MRCP and if there is a retained stone in the bile ducts then she will need an ERCP. In any case we would recommend cholecystectomy at this hospital stay or with close interval follow-up. The patient and her seem somewhat hesitant during discussion and would like to talk about it amongst themselves. I did tell them that the risk of developing repeated and worsening episodes of pancreatitis is quite high as long as she retains her gallbladder. Would recommend laparoscopic cholecystectomy with possible cholangiogram in the near future to prevent further episodes of pancreatitis Discussed the risk of surgery to include but not limited to bleeding, infection, retained stone, damage surrounding structures, need for future or more extensive surgery, conversion open, and the risk of anesthesia Agree with MRCP, will follow up with results Repeat labs in the morning N.p.o. after midnight Surgery will follow (2) Cholelithiasis: (3) Obesity (BMI 35.0-39.9 without comorbidity): (4) Abnormal liver function test: History of Present Illness Attending Physician: Sujata Serrano DO History of Present Illness 38-year-old female admitted with gallstone pancreatitis. She has no history of postprandial pain and was not aware that she had gallstones. Is otherwise healthy and is never had any. A few days ago she had a sudden onset of severe epigastric pain along with multiple episodes of vomiting. She also had multiple loose bowel movements. The pain is abdomen fluid over the past few days but eventually brought her into the emergency department. She was found to have a lipase 35,000. She had a CT scan which showed some mild gallbladder inflammation and was otherwise unremarkable. Her other labs showed a transaminitis. She had an ultrasound that showed multiple gallstones with some signs of possible cholecystitis. Bile duct is normal in size. She was seen by GI they recommend an MRCP and a surgical consultation. She currently feels okay without much pain. Allergies Allergy/AdvReac Type Severity Reaction Status Date / Time azithromycin AdvReac Severe itchy Unverified 11/03/18 11:05 swollen body ~ difficulty breathing procaine [From Novocain] AdvReac Intermediate Patient Unverified 11/03/18 11:05 states it just doesn't work tuberculin,PPD,multi-puncture AdvReac Intermediate red~itchy~s Unverified 11/03/18 11:05 wollen Home Medications Home Medications Medication Instructions Recorded Confirmed Type Liver Support 1 tab PO DAILY 11/03/18 11/03/18 History bee pollen 550 mg PO UD 11/03/18 11/03/18 History coenzyme Q10 [CoQ-10] 30 mg PO Q2D 11/03/18 11/03/18 History lactobacillus combination no.4 3,000 mmu cells PO DAILY 11/03/18 11/03/18 History [Probiotic] multivitamin 1 tab PO DAILY 11/03/18 11/03/18 History simethicone [Phazyme] 250 mg PO DAILY PRN 11/03/18 11/03/18 History Patient History Medical History No significant past medical history (Chronic) Surgical History No significant past surgical history (Chronic) Family History Other Cancer Diabetes Social History Preferred Language: [place] Communication Ability: Effective Voice Over Artist Required: No Beliefs That Will Affect Care: None marital status: Current Living Situation: Spouse Feels Safe at Home: Yes Smoking Status: Never smoker Second Hand Exposure: No ; Hx Alcohol Use: No Hx Substance Use: No during the past year weight has: decreased > 10 lbs Physical Exam Constitutional: WD/WN, vitals as above + obese Eyes: PERRL, conjunctivae normal, anicteric sclerae ENMT: external ear and nose normal, oropharynx normal Neck: trachea midline, no thyromegaly Respiratory: normal respiratory effort, lungs clear to auscultation Cardiovascular: RRR, no murmur, no edema Gastrointestinal (Abdomen): Inspection/Auscultation: abdomen normal to inspection and normal bowel sounds; abdomen not distended Percussion/Palpation: + abdomen tender (Mild tenderness to palpation in epigastrium) and abdomen soft; no guarding, abdomen not rigid and no hepatosplenomegaly Musculoskeletal: no cyanosis or clubbing, extremities motor strength 5/5 Skin: no rashes, warm and dry Neurologic: PERRL, EOMI, accommodation nl, no face palsy, no dysarthria Psychiatric: A+Ox3, euthymic affect Lymphatic: no cervical or axillary lymphadenopathy Results & Data Vital Signs (Past 12 Hours) Vital Signs Temp Pulse Pulse Resp BP BP Pulse Ox 11/03/18 14:19 36.6 C 66 18 135/83 99 11/03/18 13:54 18 137/88 100 11/03/18 11:53 52 L 18 113/78 100 11/03/18 10:11 36.9 C 86 18 190/100 H 100 Laboratory Results Laboratory Results - last 24 hr 11/03/18 11/03/18 11/03/18 10:28 10:28 10:28 WBC 7.34 RBC 4.87 Hgb 14.5 Hct 43.0 MCV 88.3 MCH 29.8 MCHC 33.7 RDW Std Deviation 46.0 RDW Coeff of Josseline 14.2 Plt Count 344 MPV 11.0 H Immature Gran % (Auto) 0.1 Neut % (Auto) 64.2 Lymph % (Auto) 24.4 [place] % (Auto) 10.1 Eos % (Auto) 0.8 Baso % (Auto) 0.4 Immature Gran # (Auto) 0.01 Neut # (Auto) 4.71 Lymph # (Auto) 1.79 [place] # (Auto) 0.74 H Eos # (Auto) 0.06 Baso # (Auto) 0.03 PT INR Sodium 142 Potassium 3.7 Chloride 108 H Carbon Dioxide 27 Anion Gap 7.0 BUN 14 Creatinine 0.82 Est Cr Clr Drug Dosing 113.0 Est GFR ( Amer) 104.5 Est GFR (Non-Af Amer) 90.1 BUN/Creatinine Ratio 16.8 Glucose 85 Calcium 8.6 Phosphorus Magnesium Total Bilirubin 0.4 AST 403 H ALT 351 H Alkaline Phosphatase 167 H Total Protein 7.3 Albumin 3.6 Globulin 3.7 Albumin/Globulin Ratio 1.0 Lipase 42248 H Vitamin B12 Folate TSH Urine Color Urine Appearance Urine pH Ur Specific [place] Urine Protein Urine Glucose (UA) Urine Ketones Urine Blood Urine Nitrite Urine Bilirubin Urine Urobilinogen Ur Leukocyte Esterase Urine WBC (Auto) Urine RBC (Auto) U Hyaline Cast (Auto) U Epithel Cells (Auto) Urine Bacteria (Auto) POC Ur Test NEG Acetaminophen Hepatitis A IgM Ab Hep Bs Antigen Hep B Core IgM Ab Hepatitis C Antibody 11/03/18 11/03/18 11/03/18 10:28 14:27 14:27 WBC RBC Hgb Hct MCV MCH MCHC RDW Std Deviation RDW Coeff of [place]osseline Plt Count MPV Immature Gran % (Auto) Neut % (Auto) Lymph % (Auto) [place] % (Auto) Eos % (Auto) Baso % (Auto) Immature Gran # (Auto) Neut # (Auto) Lymph # (Auto) [place] # (Auto) Eos # (Auto) Baso # (Auto) PT INR Sodium Potassium Chloride Carbon Dioxide Anion Gap BUN Creatinine Est Cr Clr Drug Dosing Est GFR ( Amer) Est GFR (Non-Af Amer) BUN/Creatinine Ratio Glucose Calcium Phosphorus 2.6 Magnesium 2.6 H Total Bilirubin AST ALT Alkaline Phosphatase Total Protein Albumin Globulin Albumin/Globulin Ratio Lipase Vitamin B12 Folate TSH Urine Color Yellow Urine Appearance Clear Urine pH 6.5 Ur Specific [place] 1.013 Urine Protein Negative Urine Glucose (UA) Negative Urine Ketones Negative Urine Blood Negative Urine Nitrite Negative Urine Bilirubin Negative Urine Urobilinogen Negative Ur Leukocyte Esterase Trace H Urine WBC (Auto) 1-5 Urine RBC (Auto) 0-4 U Hyaline Cast (Auto) 0 U Epithel Cells (Auto) >30 H Urine Bacteria (Auto) 1+ H POC Ur Test Acetaminophen Hepatitis A IgM Ab Hep Bs Antigen Neg Hep B Core IgM Ab Hepatitis C Antibody Neg 11/03/18 11/03/18 11/03/18 14:27 14:27 14:27 WBC RBC Hgb Hct MCV MCH MCHC RDW Std Deviation RDW Coeff of [place]osseline Plt Count MPV Immature Gran % (Auto) Neut % (Auto) Lymph % (Auto) [place] % (Auto) Eos % (Auto) Baso % (Auto) Immature Gran # (Auto) Neut # (Auto) Lymph # (Auto) [place] # (Auto) Eos # (Auto) Baso # (Auto) PT INR Sodium Potassium Chloride Carbon Dioxide Anion Gap BUN Creatinine Est Cr Clr Drug Dosing Est GFR ( Amer) Est GFR (Non-Af Amer) BUN/Creatinine Ratio Glucose Calcium Phosphorus Magnesium Total Bilirubin AST ALT Alkaline Phosphatase Total Protein Albumin Globulin Albumin/Globulin Ratio Lipase Vitamin B12 Folate Cancelled TSH Urine Color Urine Appearance Urine pH Ur Specific [place] Urine Protein Urine Glucose (UA) Urine Ketones Urine Blood Urine Nitrite Urine Bilirubin Urine Urobilinogen Ur Leukocyte Esterase Urine WBC (Auto) Urine RBC (Auto) U Hyaline Cast (Auto) U Epithel Cells (Auto) Urine Bacteria (Auto) POC Ur Test Acetaminophen < 2 L Hepatitis A IgM Ab Pending Hep Bs Antigen Hep B Core IgM Ab Pending Hepatitis C Antibody 11/03/18 11/03/18 11/03/18 14:27 14:27 14:27 WBC RBC Hgb Hct MCV MCH MCHC RDW Std Deviation RDW Coeff of [place]osseline Plt Count MPV Immature Gran % (Auto) Neut % (Auto) Lymph % (Auto) [place] % (Auto) Eos % (Auto) Baso % (Auto) Immature Gran # (Auto) Neut # (Auto) Lymph # (Auto) [place] # (Auto) Eos # (Auto) Baso # (Auto) PT 10.8 INR 1.1 Sodium Potassium Chloride Carbon Dioxide Anion Gap BUN Creatinine Est Cr Clr Drug Dosing Est GFR ( Amer) Est GFR (Non-Af Amer) BUN/Creatinine Ratio Glucose Calcium Phosphorus Magnesium Total Bilirubin AST ALT Alkaline Phosphatase Total Protein Albumin Globulin Albumin/Globulin Ratio Lipase Vitamin B12 1147 H Folate 13.37 TSH 2.570 Urine Color Urine Appearance Urine pH Ur Specific [place] Urine Protein Urine Glucose (UA) Urine Ketones Urine Blood Urine Nitrite Urine Bilirubin Urine Urobilinogen Ur Leukocyte Esterase Urine WBC (Auto) Urine RBC (Auto) U Hyaline Cast (Auto) U Epithel Cells (Auto) Urine Bacteria (Auto) POC Ur Test Acetaminophen Hepatitis A IgM Ab Hep Bs Antigen Hep B Core IgM Ab Hepatitis C Antibody Diagnostic Findings CT abd pelvis IV con only CLINICAL HISTORY: Abdominal pain, vomiting, diarrhea. COMPARISON STUDY: None. TECHNIQUE: The patient was scanned in a dynamic helical fashion during intravenous administration of 94 cc of Optiray 320 A dose lowering technique was utilized adhering to the principles of ALARA. CT DOSE: 1118.87 mGycm FINDINGS: Lower chest: Minimal groundglass dependent opacities are likely atelectatic. There are trace pleural effusions. Liver: The contrast-enhanced liver is normal in size, contour, and attenuation. There is no intrahepatic biliary ductal dilatation. The hepatic veins and portal veins are patent. Gallbladder: No gallstones are visualized. There is mild gallbladder wall thickening/pericholecystic fluid. Spleen: Normal in size and attenuation. Pancreas: Unremarkable. Adrenal glands: Unremarkable. Kidneys: Subcentimeter renal hypodensities are felt to represent cysts. No solid renal masses are visualized. There is no hydronephrosis. Bowel: There are no transition zones indicate bowel obstruction. The appendix appears normal. There is no acute diverticulitis. Peritoneum: There is trace free pelvic fluid. There is no free intraperitoneal air. Vasculature: The abdominal aorta is normal in course and caliber. Adenopathy: None. Pelvic viscera: The bladder, and pelvic viscera are unremarkable. Skeletal structures: No destructive lesions are visualized. Mild arthritic changes are present within the sacroiliac joints. IMPRESSION: 1. No evidence of bowel obstruction. No evidence of free air 2. Normal appendix 3. No evidence of acute diverticulitis 4. Mild gallbladder wall thickening/pericholecystic fluid. No gallbladder distention. No calculi visualized on CT scanning. S gallbladder CLINICAL HISTORY: Right upper quadrant pain. Evaluate for acute cholecystitis. COMPARISON STUDY: CT of the abdomen and pelvis November 13, 2018. FINDINGS: This exam is compromised by suboptimal penetration. Liver is sonographically normal. There is no biliary ductal dilatation. The common bile duct measures 3 mm in caliber. The pancreas is within normal limits. Multiple gallstones are noted within the gallbladder. No sonographic Duncan sign was elicited. Mild gallbladder wall thickening is noted. The wall measures 4 mm in thickness. No adjacent fluid was noted. There is no right hydronephrosis. IMPRESSION: 1. Cholelithiasis and mild gallbladder wall thickening. No sonographic Duncan sign. Acute cholecystitis cannot be excluded and a hepatobiliary scan could be obtained if indicated. 2. No biliary ductal dilatation. PG Care Time/CCT Total # of Minutes Spent Total Time Spent: 45 Total Time Spent with Patient: Total time spent is greater than 50% in coordination of care (as documented) at patient's floor/unit and/or counseling patient:
--- NOTE | 2018-11-03 22:22 | Magnetic Resonance Report ---
MR MRCP CLINICAL HISTORY: 38 years-old Female presenting with Gallstone pancreatitis. TECHNIQUE: Multisequence, multiplanar MR imaging of the abdomen was performed without the use of intr avenous contrast. Dedicated MRCP protocol was utilized. 3-D volumetric and/or maximum intensity proje ction (MIP) images were subsequently reconstructed for review. IV contrast: None. COMPARISON: Ultrasound and CT performed earlier the same day. FINDINGS: Localizer images: Unremarkable. Lung bases: Normal heart size. No pericardial or pleural effusion. Lung base clear. Liver: Normal morphology. Biliary: No intrahepatic or extrahepatic biliary ductal dilatation. Gallbladder contains gallstones. Gallbladder wall thickening and trace pericholecystic fluid. No choledocholithiasis. Pancreas: Normal noncontrast appearance. Spleen: Normal noncontrast appearance. Adrenal glands: Normal noncontrast appearance. Kidneys and ureters: Normal noncontrast appearance. No hydronephrosis. Normal ureters. Bowel: Normal noncontrast appearance. No bowel obstruction. Peritoneal cavity: No free fluid. Lymph nodes: No gross lymphadenopathy allowing for noncontrast technique. Vasculature: Normal noncontrast appearance. Abdominal wall: Normal. Musculoskeletal: Normal. IMPRESSION: 1. Cholelithiasis with gallbladder wall thickening and trace pericholecystic fluid. This is concerni ng for acute calculus cholecystitis as mentioned on prior exams. Surgical consultation is warranted. Electronically signed by: Samir Guevara M.D. 11/03/2018 10:21 PM
[2018-11-04 06:33] LABS: Basophils # (auto) 0.01 K/uL (0-0.2); Basophils % (auto) 0.2 %; Eosinophils # (auto) 0.11 K/uL (0-0.5); Eosinophils % (auto) 1.7 %; Hemoglobin 13.2 g/dL (12.0-16.0); Immature Granulocytes # (auto) 0.01 K/uL (0.00-0.02); Immature Granulocytes % (auto) 0.2 %; Lymphocytes # (auto) 2.33 K/uL (1.2-3.4); Lymphocytes % (auto) 35.8 %; Mean Corpuscular Volume 89.9 fL (80-100); Mean Platelet Volume 10.8 fL (7.4-10.4); Monocytes # (auto) 0.48 K/uL (0.11-0.59); Monocytes % (auto) 7.4 %; Neutrophils # (auto) 3.57 K/uL (1.4-6.5); Neutrophils % (auto) 54.7 %; Platelet Count 309 K/uL (130-400); RDW Coefficient of Variation 14.3 % (11.5-14.5); RDW Standard Deviation 46.7 fL (36.4-46.3); Red Blood Count 4.45 M/uL (4.2-5.4); White Blood Count 6.51 K/uL (4.8-10.8)
[2018-11-04 07:07] LABS: BUN Creatinine Ratio 10.3 (10-20); Calcium 8.4 mg/dl (8.5-10.1); Creatinine Clr Calc Pharmacy 138.3 ml/min; Est GFR (African American) 128.3; Est GFR (Non-African American) 110.7; Potassium 3.4 mmol/L (3.5-5.1)
[2018-11-04] MEDS ORDERED: POTASSIUM CHLORIDE 20 MEQ TABCR PO ONE (08:18)
[2018-11-04 09:02] LABS: Albumin Level 3.1 gm/dl (3.4-5.0); Bilirubin Direct 0.1 mg/dl (0-0.2); Bilirubin,Total 0.5 mg/dl (0.2-1); Magnesium 2.3 mg/dl (1.8-2.4); Total Protein 6.3 gm/dl (6.4-8.2)
[2018-11-04] MEDS: LACTATED RINGER'S 1,000 ML IV SCH ×3 (09:43→23:38)
--- NOTE | 2018-11-04 09:46 | Surgery Progress Note ---
Date of Service November 04, 2018 Assessment & Plan (1) Acute gallstone pancreatitis: pancreatitis resolving, labs normalizing recommend cholecystectomy to prevent future pancreatitis, she does not wish to have surgery however keep NPO for now until seen by Dr. Granado Supervising Physician Co-Signing Physician Notes Patient seen and examined, labs and imaging reviewed, agree with above. 38-year-old female admitted with gallstone pancreatitis and signs of cholecystitis. Her pain is improved today. We had a long discussion again and she is still stating that she does not want surgery. I did inform them that cholecystectomy following an episode of acute pancreatitis secondary to gallstones is highly recommended. Failure to perform a cholecystectomy is associated with a 25 to 30% risk of recurrent acute pancreatitis, cholecystitis, or cholangitis within 6 to 18 weeks. The risk of recurrent pancreatitis is highest in patients who have not undergone a sphincterotomy. The patient and her still state that they do not want a surgery at this time. I gave him my card and information regarding cholecystectomy. We also given return precautions. At this time surgery will sign off, call if the patient desires surgery with questions or concerns. May advance the patient's diet as tolerated. Subjective no abdominal or back pain, passing flatus Physical Exam Gastrointestinal (Abdomen): Inspection/Auscultation: abdomen not distended Percussion/Palpation: abdomen soft; abdomen nontender Results & Data Vital Signs (Past 12 Hours) Vital Signs Temp Pulse Resp BP Pulse Ox 11/04/18 07:21 37.2 C 61 20 139/85 93 11/03/18 23:40 36.7 C 61 18 134/87 95 PG Care Time/CCT Total # of Minutes Spent Total Time Spent with Patient: Total time spent is greater than 50% in coordination of care (as documented) at patient's floor/unit and/or counseling patient:
--- NOTE | 2018-11-04 13:24 | Hospitalist Progress Note ---
Date of Service November 04, 2018 Assessment & Plan (1) Acute gallstone pancreatitis: - Lipase level was 35,900 on admission, now trending down. - MRCP concerning for cholelithiasis with gallbladder wall thickening and trace pericholecystic fluid. Question if has acute cholecystitis but no fevers, pain improved, no fevers -consider starting abx and consider HIDA scan-will discuss with Surgery and GI - GI and General Surgery consulted -- pt. does not want to proceed with lap marek at this time. Will continue to management pancreatitis conservatively. - NPO; LR at 150 cc/hr. - Morphine and Zofran prn. (2) Abnormal liver function test: - Elevated LFTs in setting of gallstone pancreatitis; MRCP was negative for obstruction. - LFTs are now improving -- will continue to trend qAM. - Tylenol level negative; Hepatitis panel is pending. (3) Syncope: - Possibly related to dehydration vs. limited diet leading to hypoglycemia vs. other. - EKG pending; pt. did not want to proceed with echocardiogram to evaluate for cardiac etiology. - Orthostatic vital signs pending. (4) Obesity (BMI 35.0-39.9 without comorbidity): - BMI of 37.5 -- pt. is on restrictive diet of protein/vegetables/fruit with 600-650 calories per day. This diet is likely leading to complications and syncopal episodes at home. - B12 and Folate were WNL. - Shop Steward consulted to discuss healthy lifestyle changes, including limiting carbs/sugar and increased exercise. (5) Electrolyte abnormality: - K level 3.4 -- ordered KCl 20 mEq PO. (6) DVT prophylaxis: - SCDs; holding pharmacologic ppx for procedure. Dispo: Med/surg for treatment of gallstone pancreatitis. Supervising Physician Co-Signing Physician Notes PA Supervision Note: I did not personally see or examine the patient today, but I verified all samaniego points of HUDSON Buchanan's assessment and plan with the following exceptions/additions: None Subjective Pt. is passing gas, feels well overall. Denies abd pain, nausea/vomiting, chest pain, SOB. Surgery following. Pt. does not wish to proceed with lap marek at this time -- discussed the benefits of procedure. Review of Systems Review of Systems: All systems reviewed & are unremarkable except as noted in HPI & below Constitutional: no fever, no chills, no fatigue, no weakness and no anorexia Respiratory: no cough, no dyspnea and no dyspnea on exertion Cardiovascular: no chest pain, no palpitations and no edema Gastrointestinal: + constipation; no abdominal pain, no nausea and no vomiting Genitourinary: no difficulty urinating Musculoskeletal: no back pain and no joint pain Physical Exam Physical Exam: General: Resting comfortably HEENT: NC/AT; PERRLA with EOMI; [place] conjunctiva, MMM. No erythema of posterior pharynx Neck: Supple and nontender Cardiac: RRR Lungs: CTA bilaterally Abdomen: Bowel normoactive X 4; Nontender to palpation Extremities: Warm. No edema present Neuro: No focal weakness Skin: No rash Results & Data Vital Signs (Past 12 Hours) Vital Signs Temp Pulse Resp BP Pulse Ox 11/04/18 07:21 37.2 C 61 20 139/85 93 Laboratory Results 11/04/18 11/04/18 11/04/18 Range/Units 06:06 06:06 06:06 WBC 6.51 (4.8-10.8) K/uL RBC 4.45 (4.2-5.4) M/uL Hgb 13.2 (12.0-16.0) g/dL Hct 40.0 (37-47) % MCV 89.9 (80-100) fL MCH 29.7 (25-34) pg MCHC 33.0 (32-36) g/dL RDW Std Deviation 46.7 H (36.4-46.3) fL RDW Coeff of Josseline 14.3 (11.5-14.5) % Plt Count 309 (130-400) K/uL MPV 10.8 H (7.4-10.4) fL Immature Gran % (Auto) 0.2 % Neut % (Auto) 54.7 % Lymph % (Auto) 35.8 % [place] % (Auto) 7.4 % Eos % (Auto) 1.7 % Baso % (Auto) 0.2 % Immature Gran # (Auto) 0.01 (0.00-0.02) K/uL Neut # (Auto) 3.57 (1.4-6.5) K/uL Lymph # (Auto) 2.33 (1.2-3.4) K/uL [place] # (Auto) 0.48 (0.11-0.59) K/uL Eos # (Auto) 0.11 (0-0.5) K/uL Baso # (Auto) 0.01 (0-0.2) K/uL PT (9.0-12.0) Seconds INR (0.9-1.1) Sodium 143 (136-145) mmol/L Potassium 3.4 L (3.5-5.1) mmol/L Chloride 109 H (98-107) mmol/L Carbon Dioxide 27 (21-32) mmol/L Anion Gap 7.0 (3-11) BUN 7 D (7-18) mg/dl Creatinine 0.67 (0.6-1.2) mg/dl Est Cr Clr Drug Dosing 138.3 ml/min Est GFR ( Amer) 128.3 Est GFR (Non-Af Amer) 110.7 BUN/Creatinine Ratio 10.3 (10-20) Glucose 82 (70-99) mg/dl Calcium 8.4 L (8.5-10.1) mg/dl Phosphorus (2.5-4.9) mg/dl Magnesium 2.3 (1.8-2.4) mg/dl Total Bilirubin 0.5 (0.2-1) mg/dl Direct Bilirubin 0.1 (0-0.2) mg/dl AST 86 H (15-37) U/L ALT 205 H (12-78) U/L Alkaline Phosphatase 132 H (45-117) U/L Total Protein 6.3 L (6.4-8.2) gm/dl Albumin 3.1 L (3.4-5.0) gm/dl Lipase 1036 H (73-393) U/L Vitamin B12 (211-911) pg/ml Folate TSH (0.300-4.500) uIu/ml Acetaminophen (10-30) ug/ml Hepatitis A IgM Ab Hep Bs Antigen (Neg) Hep B Core IgM Ab Hepatitis C Antibody (Neg) 11/03/18 11/03/18 11/03/18 Range/Units 14:27 14:27 14:27 WBC (4.8-10.8) K/uL RBC (4.2-5.4) M/uL Hgb (12.0-16.0) g/dL Hct (37-47) % MCV (80-100) fL MCH (25-34) pg MCHC (32-36) g/dL RDW Std Deviation (36.4-46.3) fL RDW Coeff of Josseline (11.5-14.5) % Plt Count (130-400) K/uL MPV (7.4-10.4) fL Immature Gran % (Auto) % Neut % (Auto) % Lymph % (Auto) % [place] % (Auto) % Eos % (Auto) % Baso % (Auto) % Immature Gran # (Auto) (0.00-0.02) K/uL Neut # (Auto) (1.4-6.5) K/uL Lymph # (Auto) (1.2-3.4) K/uL [place] # (Auto) (0.11-0.59) K/uL Eos # (Auto) (0-0.5) K/uL Baso # (Auto) (0-0.2) K/uL PT 10.8 (9.0-12.0) Seconds INR 1.1 (0.9-1.1) Sodium (136-145) mmol/L Potassium (3.5-5.1) mmol/L Chloride (98-107) mmol/L Carbon Dioxide (21-32) mmol/L Anion Gap (3-11) BUN (7-18) mg/dl Creatinine (0.6-1.2) mg/dl Est Cr Clr Drug Dosing ml/min Est GFR ( Amer) Est GFR (Non-Af Amer) BUN/Creatinine Ratio (10-20) Glucose (70-99) mg/dl Calcium (8.5-10.1) mg/dl Phosphorus (2.5-4.9) mg/dl Magnesium (1.8-2.4) mg/dl Total Bilirubin (0.2-1) mg/dl Direct Bilirubin (0-0.2) mg/dl AST (15-37) U/L ALT (12-78) U/L Alkaline Phosphatase (45-117) U/L Total Protein (6.4-8.2) gm/dl Albumin (3.4-5.0) gm/dl Lipase (73-393) U/L Vitamin B12 1147 H (211-911) pg/ml Folate 13.37 TSH 2.570 (0.300-4.500) uIu/ml Acetaminophen (10-30) ug/ml Hepatitis A IgM Ab Hep Bs Antigen (Neg) Hep B Core IgM Ab Hepatitis C Antibody (Neg) 11/03/18 11/03/18 11/03/18 Range/Units 14:27 14:27 14:27 WBC (4.8-10.8) K/uL RBC (4.2-5.4) M/uL Hgb (12.0-16.0) g/dL Hct (37-47) % MCV (80-100) fL MCH (25-34) pg MCHC (32-36) g/dL RDW Std Deviation (36.4-46.3) fL RDW Coeff of Josseline (11.5-14.5) % Plt Count (130-400) K/uL MPV (7.4-10.4) fL Immature Gran % (Auto) % Neut % (Auto) % Lymph % (Auto) % [place] % (Auto) % Eos % (Auto) % Baso % (Auto) % Immature Gran # (Auto) (0.00-0.02) K/uL Neut # (Auto) (1.4-6.5) K/uL Lymph # (Auto) (1.2-3.4) K/uL [place] # (Auto) (0.11-0.59) K/uL Eos # (Auto) (0-0.5) K/uL Baso # (Auto) (0-0.2) K/uL PT (9.0-12.0) Seconds INR (0.9-1.1) Sodium (136-145) mmol/L Potassium (3.5-5.1) mmol/L Chloride (98-107) mmol/L Carbon Dioxide (21-32) mmol/L Anion Gap (3-11) BUN (7-18) mg/dl Creatinine (0.6-1.2) mg/dl Est Cr Clr Drug Dosing ml/min Est GFR ( Amer) Est GFR (Non-Af Amer) BUN/Creatinine Ratio (10-20) Glucose (70-99) mg/dl Calcium (8.5-10.1) mg/dl Phosphorus (2.5-4.9) mg/dl Magnesium (1.8-2.4) mg/dl Total Bilirubin (0.2-1) mg/dl Direct Bilirubin (0-0.2) mg/dl AST (15-37) U/L ALT (12-78) U/L Alkaline Phosphatase (45-117) U/L Total Protein (6.4-8.2) gm/dl Albumin (3.4-5.0) gm/dl Lipase (73-393) U/L Vitamin B12 (211-911) pg/ml Folate Cancelled TSH (0.300-4.500) uIu/ml Acetaminophen < 2 L (10-30) ug/ml Hepatitis A IgM Ab Pending Hep Bs Antigen (Neg) Hep B Core IgM Ab Pending Hepatitis C Antibody (Neg) 11/03/18 11/03/18 Range/Units 14:27 14:27 WBC (4.8-10.8) K/uL RBC (4.2-5.4) M/uL Hgb (12.0-16.0) g/dL Hct (37-47) % MCV (80-100) fL MCH (25-34) pg MCHC (32-36) g/dL RDW Std Deviation (36.4-46.3) fL RDW Coeff of Josseline (11.5-14.5) % Plt Count (130-400) K/uL MPV (7.4-10.4) fL Immature Gran % (Auto) % Neut % (Auto) % Lymph % (Auto) % [place] % (Auto) % Eos % (Auto) % Baso % (Auto) % Immature Gran # (Auto) (0.00-0.02) K/uL Neut # (Auto) (1.4-6.5) K/uL Lymph # (Auto) (1.2-3.4) K/uL [place] # (Auto) (0.11-0.59) K/uL Eos # (Auto) (0-0.5) K/uL Baso # (Auto) (0-0.2) K/uL PT (9.0-12.0) Seconds INR (0.9-1.1) Sodium (136-145) mmol/L Potassium (3.5-5.1) mmol/L Chloride (98-107) mmol/L Carbon Dioxide (21-32) mmol/L Anion Gap (3-11) BUN (7-18) mg/dl Creatinine (0.6-1.2) mg/dl Est Cr Clr Drug Dosing ml/min Est GFR ( Amer) Est GFR (Non-Af Amer) BUN/Creatinine Ratio (10-20) Glucose (70-99) mg/dl Calcium (8.5-10.1) mg/dl Phosphorus 2.6 (2.5-4.9) mg/dl Magnesium 2.6 H (1.8-2.4) mg/dl Total Bilirubin (0.2-1) mg/dl Direct Bilirubin (0-0.2) mg/dl AST (15-37) U/L ALT (12-78) U/L Alkaline Phosphatase (45-117) U/L Total Protein (6.4-8.2) gm/dl Albumin (3.4-5.0) gm/dl Lipase (73-393) U/L Vitamin B12 (211-911) pg/ml Folate TSH (0.300-4.500) uIu/ml Acetaminophen (10-30) ug/ml Hepatitis A IgM Ab Hep Bs Antigen Neg (Neg) Hep B Core IgM Ab Hepatitis C Antibody Neg (Neg) PG Care Time/CCT Total # of Minutes Spent Total Time Spent with Patient: Total time spent is greater than 50% in coordination of care (as documented) at patient's floor/unit and/or counseling patient:
[2018-11-05] MEDS: LACTATED RINGER'S 1,000 ML IV SCH (05:59)
[2018-11-05 06:57] LABS: Hematocrit (blood only) 39.7 % (37-47); Hemoglobin 13.3 g/dL (12.0-16.0); Mean Corpuscular Hgb Conc 33.5 g/dL (32-36); Mean Platelet Volume 10.8 fL (7.4-10.4); Platelet Count 323 K/uL (130-400); RDW Coefficient of Variation 14.1 % (11.5-14.5); RDW Standard Deviation 46.2 fL (36.4-46.3); Red Blood Count 4.46 M/uL (4.2-5.4); White Blood Count 6.86 K/uL (4.8-10.8)
[2018-11-05 07:38] LABS: Albumin Level 3.2 gm/dl (3.4-5.0); BUN Creatinine Ratio 9.8 (10-20); Bilirubin Direct 0.2 mg/dl (0-0.2); Bilirubin,Total 0.7 mg/dl (0.2-1); Calcium 8.6 mg/dl (8.5-10.1); Creatinine Clr Calc Pharmacy 147.3 ml/min; Potassium 3.3 mmol/L (3.5-5.1); Total Protein 6.4 gm/dl (6.4-8.2)
[2018-11-05] MEDS ORDERED: POTASSIUM CHLORIDE 20 MEQ TABCR PO STA (08:23)
--- NOTE | 2018-11-05 15:37 | Discharge Summary ---
Date of Service November 05, 2018 Admission HPI Per Admitting Provider Shirley Arita is a 38-year-old female with no significant past medical or surgical history presenting with nausea/vomiting/diarrhea/abdominal pain. Patient reports that 2 weeks ago she developed diffuse mild abdominal pain with bloating and an increase in eructation and flatulence. She started taking simethicone daily for relief. On 10/28 she was in the garden when she had a "blackout". She states that her vision went dark and she was unable to see for short time. On 10/30 she developed severe diffuse abdominal pain, 10 out of 10 in severity, worse in the epigastric region and left upper quadrant. She also started vomiting, multiple episodes of nonbloody emesis. She reports vomiting in the evening and throughout the night and is mostly ingested food as well as yellow liquid. Diarrhea began night as well. Large volume of yellow liquid stools, 8-10 episodes, nonbloody. She has poor appetite and decreased p.o. intake. Yesterday, 11/02 she had a near syncopal episode while in [employer]ian[place]. Her mother gave her a Validol tab (Menthyl isovalerate - hypnotic/sedative agent used in [place]). She reports frequent dizziness over the last few weeks mostly with positional changes as well as diffuse weakness. Patient has been on a strict diet since May. She eats only protein/meat, vegetables and limited fruits. She has not been eating carbohydrates, dairy, alcohol or sugar. She reports losing approximately 53 pounds since May. She is also been on a strict calorie restriction, 600 to 650 pete/day. She has been taking supplements while on her diet to include B pollen, co-Q10, probiotic and Liver Support. She recently added dairy back into her diet in the form of milk yogurt which she has been eating in small amounts. Presently she is complaining of abdominal pain mostly in the epigastric and left upper quadrant region. Also complaining of constipation. Reports her last episode of flatus was yesterday morning and her last bowel movement was yesterday at 1400. Also with complaint of dysuria. ER course: Toradol 50 mill grams IV, morphine 4 mg IV, Zofran 4 mg IV, normal saline 1 L Admission Exam Per Admitting Provider General: patient resting comfortably, NAD, non-toxic in appearance, AA&O x 4 Skin: warm, dry, intact, no rashes or lesions, no jaundice HEENT: NC/AT, PERRL, EOMI, anicteric sclera, conjunctiva without injection, external ear normal to inspection and nontender, nares patent, slightly dry mucus membranes, dentition intact, no oropharyngeal lesions, neck supple, trachea midline, no LAD, no thyromegaly, no JVD Heart: +S1/S2, regular, bradycardic, no m/r/g Lungs: equal air entry bilaterally, no rales/rhonchi/wheezes Abd: +BS, soft, ND, diffusely tender with deep palpation, no rebound/guarding/peritoneal signs, no masses/organomegaly/ascites Ext: warm, 2+ pulses in UE/LE bilaterally, no clubbing/cyanosis or edema Neuro: nonfocal, patient AA&O x 4, speech intact, no facial droop, moving all extremities on command with equal strength 5/5 Principal Diagnosis Acute Gallstone Pancreatitis Discharge Exam General: No acute distress. HEENT: NC/AT; PERRLA with EOMI; [place] conjunctiva, MMM. No erythema of posterior pharynx Neck: Supple and nontender Cardiac: RRR Lungs: CTA bilaterally Abdomen: Bowel normoactive X 4; Nontender to palpation Extremities: Warm. No edema present Neuro: No focal weakness Skin: No rash Discharge Data Allergies Allergy/AdvReac Type Severity Reaction Status Date / Time azithromycin AdvReac Severe itchy Unverified 11/03/18 11:05 swollen body ~ difficulty breathing procaine [From Novocain] AdvReac Intermediate Patient Unverified 11/03/18 11:05 states it just doesn't work tuberculin,PPD,multi-puncture AdvReac Intermediate red~itchy~s Unverified 11/03/18 11:05 wollen Consultations 11/03/18 12:20 ED Decision to Admit Stat 11/03/18 14:18 Consult Gastroenterology Routine 11/03/18 17:59 Consult General Surgery Routine 11/05/18 10:31 Consult Health Information Management Routine Ordered Studies 11/03/18 11:18 CT abd pelvis IV con only Stat 11/03/18 12:24 US gallbladder Stat 11/03/18 17:59 MR MRCP Routine Hospital Course (1) Acute gallstone pancreatitis: Lipase level was 35,900 on admission, trended down to normal. MRCP concerning for cholelithiasis with gallbladder wall thickening and trace pericholecystic fluid. No indication for abx coverage for acute cholecystitis -- discussed with surgery. GI and General Surgery consulted -- pt. declined lap marek. She was informed of the risks/benefits of procedure. Tolerated full liquid diet; advance to low fat diet at discharge. Stable for discharge to home on 11/05/18. (2) Abnormal liver function test: Elevated LFTs in setting of gallstone pancreatitis; MRCP was negative for obstruction. LFTs are trending down. Hepatitis panel was negative. Tylenol level <2. -should have LFTs trended after discharge to ensure resolving back to normal (3) Syncope: Presyncope--> Possibly related to dehydration vs. limited diet leading to hypoglycemia vs. other. EKG showed NSR; Echo showed preserved EF, no valvular abnormalities. Legal Instruments Examiner consulted for nutrition recommendations. (4) Obesity (BMI 35.0-39.9 without comorbidity): BMI of 37.5 -- pt. was on restrictive diet of protein/vegetables/fruit with 600-650 calories per day. This diet is likely leading to complications and syncopal episodes at home. B12 and Folate were WNL. Legal Instruments Examiner discussed healthy lifestyle changes, including limiting carbs/sugar and increased exercise. (5) Electrolyte abnormality: Replaced as needed. (6) DVT prophylaxis: Held pharmacologic ppx for possible procedure. Stable for discharge to home on 11/05/18. Will need to establish care with PCP. Total Time Total Time Spent Total Time Spent (In Minutes): >30 minutes Total Time Includes: Examination of the Patient, Discharge Planning, Medication Reconciliation, Communication With Other Providers and Other Discharge Plan Discharge Items Patient Disposition: Home - Self-Care Reason For Visit: PANCREATITIS Discharge Diagnosis: Acute Gallstone Pancreatitis Condition on Discharge: Fair Activity: As commented below Exercise/Sports: Gradually increase as tolerated Non-emergency contact: Primary Care Provider Call non-emergency contact if: you have any medication questions, your symptoms worsen, your pain is not controlled, your pain is worsening, your pain is unusual for you, your pain is concerning for you and you have a fever Follow-up/Referrals: PCP,NO [Primary Care Provider] - Diet: Low Fat Addtl Attending Provider Instructions: 1. Acute Gallstone Pancreatitis * Lipase level is now trending down as expected; no indication for further lab monitoring. * Continue to drink plenty of fluids at home. * An appointment will be scheduled with a family doctor -- it is important to establish care with a physician to prevent issues in the future. * Please monitor for signs of recurrent pancreatitis, including severe abdominal pain, nausea/vomiting, fever/chills. You will need to return to the ER if you develop these symptoms. 2. Please continue a low fat diet at home -- you were educated on a healthy way to diet/calorie restrict at home. Addtl Trolley Collector Provider Instructions: None. Pending Studies at Discharge: No Stand-Alone Forms: My [facility] Medications and DC Order Prescriptions: Continued multivitamin Tablet 1 tab PO DAILY RF: 0 coenzyme Q10 [CoQ-10] 30 mg Capsule 30 mg PO Q2D RF: 0 Probiotic 3 billion cell Capsule 3,000 mmu cells PO DAILY RF: 0 bee pollen 550 mg Capsule 550 mg PO UD RF: 0 Phazyme 250 mg Capsule 250 mg PO DAILY PRN (Reason: .) RF: 0 Discontinued Liver Support 1 tab PO DAILY RF: 0 Discharge Orders: Discharge Order (Routine); Ordered 11/05/18 Ordered By: Adamaris Shen/Other Patient Handouts: Gallstones Admission Data Admit Date/Time: 11/03/18 13:10 Attending Provider: Ella Garcia Admit Provider: Sujata Serrano Primary Care Provider: PCP,NO Other Providers: Marek Dallas ; Jose J Granado ; Sujata Serrano Other Interventions: Discharge Summary Assessment (RN) Last Done: 11/05/18 16:55 DC Date/Time DO NOT enter until pt leaves facility: 11/05/18 18:15 Supervising Physician Co-Signing Physician Notes PA Supervision Note: I personally saw and examined the patient. I verified all samaniego points and agree with HUDSON Buchanan with the following exceptions and/or additions: Pt has no abd pain, is eating. Continues to decline nay surgical intervention but reports if pain returns, she will come immediately back to hospital RRR no mgr CTAB no wcr Abd +BS soft NT ND, obese Ext no calf tenderness Stable for dc to home
== END 2018-11-05 18:15 | disposition home or self-care (01) | DRG 439 ==
LOC: ED 10:09 → SUATTDRO 13:10 → 3W 13:10

== ENCOUNTER 2018-12-15 10:04 | Inpatient (IN) ==
[2018-12-15] MEDS ORDERED: SODIUM CHLORIDE 0.9% 1000ML 1,000 ML IV ONE ×3 (10:49→16:26)
[2018-12-15] MEDS ORDERED: ONDANSETRON INJ 2 MG/ML 2 ML VIAL IV STA (10:51)
[2018-12-15] MEDS ORDERED: PIPERACILL/TAZOBAC CONSULT ACTIVE PRN (10:51)
[2018-12-15] MEDS ORDERED: MoRPHine SULFATE 4 MG/ML 1 ML CARP\\VIAL IV STA ×2 (10:51→16:26)
[2018-12-15] MEDS ORDERED: PIPERACILLIN/TAZOBACTAM 4.5 GM/120 ML BAG IV ONE (10:51)
[2018-12-15 11:14] LABS: Basophils # (auto) 0.02 K/uL (0-0.2); Basophils % (auto) 0.2 %; Eosinophils # (auto) 0.03 K/uL (0-0.5); Eosinophils % (auto) 0.3 %; Hematocrit (blood only) 40.8 % (37-47); Hemoglobin 13.8 g/dL (12.0-16.0); Immature Granulocytes # (auto) 0.02 K/uL (0.00-0.02); Immature Granulocytes % (auto) 0.2 %; Lymphocytes # (auto) 1.56 K/uL (1.2-3.4); Lymphocytes % (auto) 15.2 %; Mean Corpuscular Hemoglobin 29.8 pg (25-34); Mean Corpuscular Hgb Conc 33.8 g/dL (32-36); Mean Corpuscular Volume 88.1 fL (80-100); Mean Platelet Volume 9.9 fL (7.4-10.4); Monocytes % (auto) 7.8 %; Neutrophils # (auto) 7.82 K/uL (1.4-6.5); Neutrophils % (auto) 76.3 %; Platelet Count 306 K/uL (130-400); RDW Coefficient of Variation 13.9 % (11.5-14.5); Red Blood Count 4.63 M/uL (4.2-5.4); White Blood Count 10.25 K/uL (4.8-10.8)
[2018-12-15 11:31] LABS: Alanine Aminotransferase 343 U/L (12-78); Albumin Level 3.4 gm/dl (3.4-5.0); Aspartate Aminotransferase 120 U/L (15-37); BUN Creatinine Ratio 11.8 (10-20); Blood Urea Nitrogen 9 mg/dl (7-18); Calcium 8.6 mg/dl (8.5-10.1); Carbon Dioxide 26 mmol/L (21-32); Chloride 107 mmol/L (98-107); Est GFR (African American) 116.4; Est GFR (Non-African American) 100.4; Glucose 85 mg/dl (70-99); Potassium 3.5 mmol/L (3.5-5.1); Sodium 138 mmol/L (136-145)
[2018-12-15 11:34] LABS: Albumin Globulin Ratio 0.9 (0.9-2); Alkaline Phosphatase 151 U/L (45-117); Bilirubin,Total 1.1 mg/dl (0.2-1); Globulin 3.9 gm/dl (2.5-4.0); Lipase 4169 U/L (73-393); Total Protein 7.3 gm/dl (6.4-8.2)
[2018-12-15] MEDS ORDERED: IOVERSOL 100ml IV PRN (12:17)
--- NOTE | 2018-12-15 12:55 | CT Scan Report ---
CT OF THE ABDOMEN AND PELVIS WITH CONTRAST CLINICAL HISTORY: Recent gallstone pancreatitis. Abdominal pain. COMPARISON STUDY: CT of the abdomen and pelvis, right upper quadrant ultrasound and MRCP October. TECHNIQUE: Following IV administration of 94 mL of Optiray-320, axial images of the abdomen and pelvi s were obtained from the lung bases to the proximal femurs. Images were reviewed in the axial, sagitt al, and coronal planes. IV contrast was administered without complication. Automated exposure contro l was utilized for the study. A dose lowering technique was utilized adhering to the principles of A ILENE. CT DOSE: 1458.31 mGy.cm FINDINGS: No pneumatosis, free air or portal venous gas is present. The liver, spleen, adrenal glands are unremarkable. Several subcentimeter left renal lesions are too small characterize but are probab ly benign. The right kidney is normal. There is no hydronephrosis. Moderate peripancreatic infiltrati on and fluid is noted. This extends into the mesentery and left anterior pararenal space. There is no evidence for pancreatic necrosis. The gland is edematous. No peripancreatic fluid collection is pres ent. There is no pancreatic ductal dilatation. Slight biliary ductal dilatation has developed since C T of November 03, 2018. The common bile duct measures 7 mm in caliber. No common bile duct calculi id entified although these are often occult by CT. Mild gallbladder distention with trace adjacent infil tration is noted. There is no evidence for a bowel obstruction. The appendix is normal. No adnexal ma ss is present. The ovaries are not enlarged. There is a small amount of fluid within the pelvis. Ther e are no suspicious osseous lesions within visualized skeletal structures. Atrial vasculature is kenyon nt. IMPRESSION: 1. Moderate peripancreatic infiltration and fluid consistent with acute pancreatitis. 2. Mild gallbladder distention with trace adjacent infiltration. Acute cholecystitis cannot be exclud ed. 3. Interval development of mild biliary ductal dilatation which could be correlated with liver functi on tests. No common bile duct calculi identified although these are often occult by CT. Electronically signed by: Luis Diaz M.D. 12/15/2018 12:54 PM
[2018-12-15 13:12] LABS: Appearance Urine Clear (Clear); Bilirubin Urine Negative (Negative); Blood Urine Negative (Negative); Color Urine Yellow; Glucose Urine UA Negative (Negative); Ketones Urine Trace (Negative); Leukocyte Esterase Urine Negative (Negative); Nitrite Urine Negative (Negative); Protein Urine Negative (Negative); Specific Gravity Urine 1.039 (1.000-1.030); Urobilinogen Urine Negative (Negative); pH Urine 7.5 (4.5-7.5)
--- NOTE | 2018-12-15 15:57 | History & Physical Report ---
Date of Service December 15, 2018 Assessment & Plan (1) Pancreatitis: Hx of same with gallstones noted Declined marek at that time Elevated LFTs, including lipase at 4163 Lactic acid WNL UA neg NPO, IVF GI recs for MRCP, c/s pending Gen surg c/s pending (2) DVT prophylaxis: SCDs given possible need for OR History of Present Illness Primary Care Provider: NO PCP 38 y/o F c/o epigastric pain. Pt was admitted in October with similar sx and dx with pancreatitis thought related to gallstones. She was recommended to undergo a marek, but declined at that time after feeling improved. She has not been eating fatty or greasy foods and has had no pain until Saturday when she had sudden onset of epigastric pain. She restricted her PO intake but has continued to have worsening pain. She had several episodes of emesis yesterday and has not eaten anything since yesterday AM. She is bloated. She felt like she might have a fever today. Pt denies SOB, chest pain, c/d, LE pain or swelling. Allergies Allergy/AdvReac Type Severity Reaction Status Date / Time azithromycin AdvReac Severe itchy Unverified 12/15/18 10:51 swollen body ~ difficulty breathing procaine [From Novocain] AdvReac Intermediate Patient Unverified 12/15/18 10:51 states it just doesn't work tuberculin,PPD,multi-puncture AdvReac Intermediate red~itchy~s Unverified 12/15/18 10:51 wollen Home Medications Home Medications Medication Instructions Recorded Confirmed Type No Known Home Medications 12/15/18 12/15/18 History Past Med/Surg History Medical History No significant past medical history (Chronic) Pancreatitis Surgical History No significant past surgical history (Chronic) Family History Other Cancer Diabetes Social History Preferred Language: Japanese Communication Ability: Effective Emergency Medicine Physician Required: No Beliefs That Will Affect Care: None marital status: Current Living Situation: Spouse Feels Safe at Home: Yes Smoking Status: Never smoker Second Hand Exposure: No ; Hx Alcohol Use: No Hx Substance Use: No during the past year weight has: decreased > 10 lbs Review of Systems Review of Systems: Pertinent positives and negatives reviewed in HPI--all others negative Physical Exam Constitutional: WD/WN, vitals as above Eyes: normal visual joshi by confrontation and + anicteric sclerae Neck: normal visual inspection and trachea midline Respiratory: normal respiratory effort, lungs clear to auscultation Cardiovascular: Rate/Rhythm: regular rate and regular rhythm Gastrointestinal (Abdomen): Inspection/Auscultation: + abdomen distended Percussion/Palpation: + abdomen tender and abdomen soft Neg Duncan's sign Musculoskeletal: Head/Neck/Chest: normocephalic and head atraumatic negative for edema, peripheral pulses intact Skin: no rashes, warm and dry Neurologic: awake; not confused Speech / Cognition: normal speech Psychiatric: A+Ox3, euthymic affect Results & Data Vital Signs (Past 12 Hours) Vital Signs Temp Pulse Resp BP Pulse Ox 12/15/18 15:05 78 23 147/99 H 97 12/15/18 14:00 79 13 140/93 97 12/15/18 13:32 80 15 136/97 97 12/15/18 13:00 76 15 100 12/15/18 12:54 79 21 98 12/15/18 12:41 81 18 167/109 H 99 12/15/18 10:15 37.9 C H 102 H 20 139/99 98 Code Status & VTE Plan Code Status Full code VTE Prophylaxis Plan VTE Prophylaxis will be ordered: Yes PG Care Time/CCT Total # of Minutes Spent Total Time Spent with Patient: Total time spent is greater than 50% in c oordination of care (as documented) at patient's floor/unit and/or counseling patient: (1) Pancreatitis Acute pancreatitis complication: unspecified Chronicity: acute Pancreatitis type: unspecified pancreatitis type Qualified Code(s): K85.90 - Acute pancreatitis without necrosis or infection, unspecified
[2018-12-15] MEDS ORDERED: KETOROLAC 30 MG/ML VIAL IV STA (16:26)
--- NOTE | 2018-12-15 17:06 | Emergency Department Note ---
Entered by Michaela Claudio acting as a scribe for History of Present Illness General Chief complaint: Abdominal Pain Stated complaint: VOMITING, BLOATING, ABDOMINAL PAIN Time Seen by Provider: 12/15/18 10:46 Source: patient History of Present Illness Onset (ago): day(s) 2 Location: abdomen Severity: similar to prior episodes (gallstone pancreatitis) Pain Consistency: + other (worsening) Maximum Pain Intensity: 5 Relieved By: + medication (Ibuprofen) Associated symptoms: + denies other symptoms (leg swelling, urinary symptoms), + nausea/vomiting and + other (passing large green looking stone) The patient is a 38 year old female w/ PMHx of gallbladder pancreatitis who presents to the ED w/ CC of worsening abdominal pain starting 2 days ago. The patient states that she was recently seen and diagnosed with gallstone pancreatitis. She reports that they did not do any procedures and sent her home. She states that she was doing well, but started having a similar upper abdominal pain starting 2 days ago. She states that since then, it has started to move into her lower abdomen. She reports that the pain has been making her have nausea and vomiting. She notes that she has vomited 6 times since last night. The patient notes that she has taken Ibuprofen with some relief. She notes that she did pass a large green looking stone in one of bowel movements and believes that she may have passed her gallstone. She notes that she last moved her bowels yesterday and they were normal. The patient denies leg swelling, urinary symptoms, use of alcohol, and use of tobacco. Home Medications Home Medications Medication Instructions Recorded Confirmed Type No Known Home Medications 12/15/18 12/15/18 History Allergies Allergy/AdvReac Type Severity Reaction Status Date / Time azithromycin AdvReac Severe itchy Unverified 12/15/18 10:51 swollen body ~ difficulty breathing procaine [From Novocain] AdvReac Intermediate Patient Unverified 12/15/18 10:51 states it just doesn't work tuberculin,PPD,multi-puncture AdvReac Intermediate red~itchy~s Unverified 12/15/18 10:51 bogdan Past Med/Surg History Medical History No significant past medical history (Chronic) Pancreatitis Surgical History No significant past surgical history (Chronic) Family History Other Cancer Diabetes Social History Preferred Language: Citizen Of [place] Communication Ability: Effective Press Feeder Required: No Beliefs That Will Affect Care: None marital status: Current Living Situation: Spouse Feels Safe at Home: Yes Smoking Status: Never smoker Second Hand Exposure: No ; Hx Alcohol Use: No Hx Substance Use: No during the past year weight has: decreased > 10 lbs Review of Systems See HPI for pertinent positives & negatives. and A total of 10 systems reviewed and were otherwise negative Physical Exam Vital Signs Vital Signs - 24 hr 12/15/18 10:15 12/15/18 10:50 12/15/18 12:41 Temperature 37.9 C H Temperature Source Oral Sepsis Recent Fever Within 48 Hours No Sepsis Action Taken by Nursing No Action Required Pulse Rate 102 H 81 Pulse Rate from SpO2 Sensor 80 Respiratory Rate 20 18 Respiratory Effort / Characteristics Non-Labored Respiratory Depth Normal Blood Pressure 139/99 167/109 H Blood Pressure Mean 112 128 Pulse Oximetry 98 99 Oxygen Delivery Method Room Air Room Air 12/15/18 12:54 12/15/18 13:00 12/15/18 13:32 Temperature Temperature Source Sepsis Recent Fever Within 48 Hours Sepsis Action Taken by Nursing Pulse Rate 79 76 80 Pulse Rate from SpO2 Sensor Respiratory Rate 21 15 15 Respiratory Effort / Characteristics Respiratory Depth Blood Pressure 136/97 Blood Pressure Mean 110 Pulse Oximetry 98 100 97 Oxygen Delivery Method Room Air Room Air Room Air 12/15/18 14:00 12/15/18 15:05 Temperature Temperature Source Sepsis Recent Fever Within 48 Hours Sepsis Action Taken by Nursing Pulse Rate 79 78 Pulse Rate from SpO2 Sensor Respiratory Rate 13 23 Respiratory Effort / Characteristics Respiratory Depth Blood Pressure 140/93 147/99 H Blood Pressure Mean 108 115 Pulse Oximetry 97 97 Oxygen Delivery Method Room Air Room Air GENERAL: Well appearing, well nourished, NAD, non-toxic. EYE EXAM: Normal conjunctiva. PERRL, no anisocoria and EOM's grossly intact w/o pain. OROPHARYNX: Moist mucous membranes. Grossly normal dentition. NECK: Supple, no nuchal rigidity, no adenopathy, non-tender. No signs of meni ngismus. LUNGS: Clear to auscultation. Normal chest wall mechanics. HEART: NSR, no MRG. ABDOMEN: Abdomen soft, epigastric pain, not peritonitic, normo-active bowel sounds, no masses, no rebound or guarding. BACK: No CVA TTP. SKIN: No rashes and no bruising. UPPER EXTREMITIES: Upper extremities are grossly normal. LOWER EXTREMITIES: No pitting edema. No calf pain. NEURO EXAM: A&O x3, cranial nerves II-XII grossly intact, normal speech, moves all 4 extremities on command w/o issue. Course 1049: EMR reviewed. The patient recently had gallstone pancreatitis. She declined a lap cholecystectomy. She had a negative MRCP. 1112: Past medical records reviewed. The patient was evaluated in room C7. A complete history and physical exam was performed. 1313: I reevaluated the patient and updated her on her test results thus far. 1329: I discussed the patient's case with Silvana Vega PA-C- General Surgeon. She will come evaluate the patient. 1453: General Surgery recommended admitting the patient to medicine. I spoke w/ [facility] who recommended repeat MRCP. 1512: I reevaluated the patient and updated her on her test results. I discussed the treatment plan with them. She verbally agrees and understands. 1527: I discussed the patient's case with Dr. Ingram- [facility] [place] She will evaluate the patient for further management. Administered Medications Sodium Chloride (Nss 1000ml) 1,000 mls @ 999 mls/hr IV .Q1H1M ONE Stop: 12/15/18 17:26 Last Admin: 12/15/18 16:36 Dose: 999 mls/hr Documented by: [id number] Ioversol (Optiray 320 100ml) 94 ml IV ONCE PRN PRN Reason: Interaction Checking Stop: 12/19/18 12:16 Last Admin: 12/15/18 12:18 Dose: 94 ml Documented by: [id number] Discontinued Medications Sodium Chloride (Nss 1000ml) 1,000 mls @ 999 mls/hr IV .Q1H1M ONE Stop: 12/15/18 11:49 Last Infusion: 12/15/18 14:26 Dose: 0 mls/hr Documented by: [id number] Admin: 12/15/18 13:02 Dose: 999 mls/hr Documented by: [id number] Sodium Chloride (Nss 1000ml) 1,000 mls @ 999 mls/hr IV .Q1H1M ONE Stop: 12/15/18 11:51 Last Infusion: 12/15/18 13:22 Dose: 0 mls/hr Documented by: [id number] Admin: 12/15/18 12:05 Dose: 999 mls/hr Documented by: [id number] Piperacillin Sod/Tazobactam Sod (Zosyn) 4.5 gm in 120 mls @ 240 mls/hr IV NOW ONE Stop: 12/15/18 11:20 Last Infusion: 12/15/18 13:22 Dose: 0 mls/hr Documented by: [id number] Admin: 12/15/18 12:52 Dose: 240 mls/hr Documented by: [id number] Ketorolac Tromethamine (Toradol) 30 mg IV NOW STA Stop: 12/15/18 16:27 Last Admin: 12/15/18 16:36 Dose: 30 mg Documented by: [id number] Morphine Sulfate (Morphine Sulfate) 4 mg IV NOW STA Stop: 12/15/18 10:52 Last Admin: 12/15/18 12:05 Dose: 4 mg Documented by: [id number] Morphine Sulfate (Morphine Sulfate) 4 mg IV NOW STA Stop: 12/15/18 16:27 Last Admin: 12/15/18 16:35 Dose: 4 mg Documented by: [id number] Ondansetron HCl (Zofran) 4 mg IV NOW STA Stop: 12/15/18 10:52 Last Admin: 12/15/18 12:05 Dose: 4 mg Documented by: [id number] Medical Decision Making Differential Diagnosis Differential diagnoses includes but is not limited to gastritis, peptic ulcer disease, GERD, gallbladder disease, pancreatitis, small bowel obstruction, acute coronary syndrome, pericarditis, ischemic bowel, irritable bowel disease, irritable bowel syndrome, appendicitis, diverticulitis, malignancy, hernia, urinary tract infection, torsion, /ectopic , perforation, trauma, infectious. Medical Records Attestation: I reviewed the patient's medical records. Home Medications Current Medication List: was personally reviewed by me Laboratory Data Attestation: I reviewed the patient's lab results. Result diagrams: 12/15/18 11:02 12/15/18 11:02 Lab Results 12/15/18 12/15/18 12/15/18 Range/Units 11:02 11:02 11:02 WBC 10.25 (4.8-10.8) K/uL RBC 4.63 (4.2-5.4) M/uL Hgb 13.8 (12.0-16.0) g/dL Hct 40.8 (37-47) % MCV 88.1 (80-100) fL MCH 29.8 (25-34) pg MCHC 33.8 (32-36) g/dL RDW Std Deviation 45.0 (36.4-46.3) fL RDW Coeff of Josseline 13.9 (11.5-14.5) % Plt Count 306 (130-400) K/uL MPV 9.9 (7.4-10.4) fL Immature Gran % (Auto) 0.2 % Neut % (Auto) 76.3 % Lymph % (Auto) 15.2 % Prairie % (Auto) 7.8 % Eos % (Auto) 0.3 % Baso % (Auto) 0.2 % Immature Gran # (Auto) 0.02 (0.00-0.02) K/uL Neut # (Auto) 7.82 H (1.4-6.5) K/uL Lymph # (Auto) 1.56 (1.2-3.4) K/uL Prairie # (Auto) 0.80 H (0.11-0.59) K/uL Eos # (Auto) 0.03 (0-0.5) K/uL Baso # (Auto) 0.02 (0-0.2) K/uL Sodium 138 (136-145) mmol/L Potassium 3.5 (3.5-5.1) mmol/L Chloride 107 (98-107) mmol/L Carbon Dioxide 26 (21-32) mmol/L Anion Gap 5.0 (3-11) BUN 9 (7-18) mg/dl Creatinine 0.75 (0.6-1.2) mg/dl Est Cr Clr Drug Dosing Not Reportable Est GFR ( Amer) 116.4 Est GFR (Non-Af Amer) 100.4 BUN/Creatinine Ratio 11.8 (10-20) Glucose 85 (70-99) mg/dl Lactate 1.3 (0.4-2.0) mmol/L Calcium 8.6 (8.5-10.1) mg/dl Total Bilirubin 1.1 H (0.2-1) mg/dl AST 120 H (15-37) U/L ALT 343 H (12-78) U/L Alkaline Phosphatase 151 H (45-117) U/L Total Protein 7.3 (6.4-8.2) gm/dl Albumin 3.4 (3.4-5.0) gm/dl Globulin 3.9 (2.5-4.0) gm/dl Albumin/Globulin Ratio 0.9 (0.9-2) Lipase 4169 H (73-393) U/L Urine Color Urine Appearance (Clear) Urine pH (4.5-7.5) Ur Specific Jachin (1.000-1.030) Urine Protein (Negative) Urine Glucose (UA) (Negative) Urine Ketones (Negative) Urine Blood (Negative) Urine Nitrite (Negative) Urine Bilirubin (Negative) Urine Urobilinogen (Negative) Ur Leukocyte Esterase (Negative) 12/15/18 Range/Units 12:55 WBC (4.8-10.8) K/uL RBC (4.2-5.4) M/uL Hgb (12.0-16.0) g/dL Hct (37-47) % MCV (80-100) fL MCH (25-34) pg MCHC (32-36) g/dL RDW Std Deviation (36.4-46.3) fL RDW Coeff of Josseline (11.5-14.5) % Plt Count (130-400) K/uL MPV (7.4-10.4) fL Immature Gran % (Auto) % Neut % (Auto) % Lymph % (Auto) % [place]irie % (Auto) % Eos % (Auto) % Baso % (Auto) % Immature Gran # (Auto) (0.00-0.02) K/uL Neut # (Auto) (1.4-6.5) K/uL Lymph # (Auto) (1.2-3.4) K/uL [place] # (Auto) (0.11-0.59) K/uL Eos # (Auto) (0-0.5) K/uL Baso # (Auto) (0-0.2) K/uL Sodium (136-145) mmol/L Potassium (3.5-5.1) mmol/L Chloride (98-107) mmol/L Carbon Dioxide (21-32) mmol/L Anion Gap (3-11) BUN (7-18) mg/dl Creatinine (0.6-1.2) mg/dl Est Cr Clr Drug Dosing Est GFR ( Amer) Est GFR (Non-Af Amer) BUN/Creatinine Ratio (10-20) Glucose (70-99) mg/dl Lactate (0.4-2.0) mmol/L Calcium (8.5-10.1) mg/dl Total Bilirubin (0.2-1) mg/dl AST (15-37) U/L ALT (12-78) U/L Alkaline Phosphatase (45-117) U/L Total Protein (6.4-8.2) gm/dl Albumin (3.4-5.0) gm/dl Globulin (2.5-4.0) gm/dl Albumin/Globulin Ratio (0.9-2) Lipase (73-393) U/L Urine Color Yellow Urine Appearance Clear (Clear) Urine pH 7.5 (4.5-7.5) Ur Specific Jachin 1.039 H (1.000-1.030) Urine Protein Negative (Negative) Urine Glucose (UA) Negative (Negative) Urine Ketones Trace H (Negative) Urine Blood Negative (Negative) Urine Nitrite Negative (Negative) Urine Bilirubin Negative (Negative) Urine Urobilinogen Negative (Negative) Ur Leukocyte Esterase Negative (Negative) Imaging Data Radiologist's Impression: Radiology results as stated below per my review and the radiologist's interpretation: CT OF THE ABDOMEN AND PELVIS WITH CONTRAST CLINICAL HISTORY: Recent gallstone pancreatitis. Abdominal pain. COMPARISON STUDY: CT of the abdomen and pelvis, right upper quadrant ultrasound and MRCP November 03, 2018. TECHNIQUE: Following IV administration of 94 mL of Optiray-320, axial images of the abdomen and pelvis were obtained from the lung bases to the proximal femurs. Images were reviewed in the axial, sagittal, and coronal planes. IV contrast was administered without complication. Automated exposure control was utilized for the study. A dose lowering technique was utilized adhering to the principles of ALARA. CT DOSE: 1458.31 mGy.cm FINDINGS: No pneumatosis, free air or portal venous gas is present. The liver, spleen, adrenal glands are unremarkable. Several subcentimeter left renal lesion s are too small characterize but are probably benign. The right kidney is normal. There is no hydronephrosis. Moderate peripancreatic infiltration and fluid is noted. This extends into the mesentery and left anterior pararenal space. There is no evidence for pancreatic necrosis. The gland is edematous. No peripancreatic fluid collection is present. There is no pancreatic ductal dilatation. Slight biliary ductal dilatation has developed since CT of November 03, 2018. The common bile duct measures 7 mm in caliber. No common bile duct calculi identified although these are often occult by CT. Mild gallbladder distention with trace adjacent infiltration is noted. There is no evidence for a bowel obstruction. The appendix is normal. No adnexal mass is present. The ovaries are not enlarged. There is a small amount of fluid within the pelvis. There are no suspicious osseous lesions within visualized skeletal structures. Atrial vasculature is patent. IMPRESSION: 1. Moderate peripancreatic infiltration and fluid consistent with acute pancreatitis. 2. Mild gallbladder distention with trace adjacent infiltration. Acute cholecystitis cannot be excluded. 3. Interval development of mild biliary ductal dilatation which could be correlated with liver function tests. No common bile duct calculi identified although these are often occult by CT. Electronically signed by: Luis Diaz M.D. 12/15/2018 12:54 PM Blood Pressure Blood Pressure Findings: Elevated blood pressure Blood Pressure Disposition: further management by hospitalist MDM Narrative The patient is a 38 year old female w/ PMHx of gallbladder pancreatitis who presents to the ED w/ CC of worsening abdominal pain starting 2 days ago. Patient was seen and evaluated the bedside. The patient did present with fever and abdominal pain. The patient did have a recent diagnosis of likely gallstone pancreatitis. Patient had a negative MRCP and had declined a cholecystectomy which have been recommended by surgery. Patient did have blood work completed along with IV fluids lactate and cultures along with empiric antibiotics Zosyn. Patient does have mild change in LFTs. Liver function testing does lipase is 4100. Urinalysis does not appear to be infected. CT shows peripancreatic inflammation possible gallbladder wall issues either. I did speak with both surgery and GI. GI recommended repeat MRCP and if positive will need an ERCP. No evidence of any choledocholithiasis on CAT scan. The patient was ordered additional pain medication IV fluids. Patient was given some Toradol. Surgery will evaluate the patient. I did speak the on-call hospitalist agreed to further evaluate treat the patient. Patient was admitted to the medicine service. Impression & Plan Pancreatitis, Abdominal pain, Transaminitis Discharge Plan Visit Data Chief Complaint: Abdominal Pain Stated Complaint: VOMITING, BLOATING, ABDOMINAL PAIN ED Provider: Mir Salmon Discharge Problem: Pancreatitis, Abdominal pain, Transaminitis Patient Disposition: Being Evaluated by Hospitalist Forms Stand Alone Forms: Call Back Authorization, My [facility] Prescriptions Prescriptions: No Action No Known Home Medications RF: 0 Referrals Referrals: PCP,NO [Primary Care Provider] - Discharge Problem: Pancreatitis Qualifiers: Chronicity: acute Pancreatitis type: unspecified pancreatitis type Acute pancreatitis complication: unspecified Qualified Code(s): K85.90 - Acute pancreatitis without necrosis or infection, unspecified Abdominal pain Qualifiers: Abdominal location: unspecified location Qualified Code(s): R10.9 - Unspecified abdominal pain The scribe's documentation has been prepared under my direction and personally reviewed by me in its entirety. I confirm that the note above accurately reflects all work, treatment, procedures, and medical decision making performed by me.
[2018-12-15] MEDS ORDERED: MAGNESIUM HYDROXIDE SUSP 30 ML UDC PO PRN (17:39)
[2018-12-15] MEDS ORDERED: ONDANSETRON INJ 2 MG/ML 2 ML VIAL IV PRN (17:39)
[2018-12-15] MEDS ORDERED: MoRPHine SULFATE 2 MG/ML CARP IV PRN (17:39)
[2018-12-15] MEDS ORDERED: ACETAMINOPHEN 325 MG TAB PO PRN (17:39)
[2018-12-15] MEDS: PATIENT'S HEIGHT AND/OR WEIGHT NEEDED SCH ×2 (18:00→21:11)
--- NOTE | 2018-12-15 18:20 | Surgery Consultation ---
Date of Consultation December 15, 2018 Assessment & Plan (1) Pancreatitis: This patient has recurrent pancreatitis. This is most likely related to gallstone etiology. The pain was worse on this occasion. Her lipase level was elevated although not as high. Her LFTs are mildly elevated as well. On the recent CT scan she had a 7 mm common bile duct which was only 3 mm 6 weeks ago. Agree with GI consultation. The patient stated that she was told an MRCP was ordered. We will await that result. We will need to evaluate the progression of her pancreatitis. At some point she will need a cholecystectomy and she is agreed to that. We will also see whether or not an ERCP is indicated. If so we may be able to do a combined procedure. Agree with n.p.o. and IV hydration at the present time. There was no evidence of pancreatic necrosis or abscess formation at this time. Present on Admission?: Yes History of Present Illness Reason for Consultation: Recurrent pancreatitis Requesting Physician: Silvana Ingram DO Attending Physician: Silvana Ingram, DO History of Present Illness I been asked by Dr. Ingram to see this 38-year-old female who presented to the emergency room with a 2-day history of abdominal pain centered in the upper mid abdomen but also extending towards the right and the left although the right was more severe. The patient had nausea and vomiting with this. She had no fever or chills. She had a normal bowel movement this morning without melena or hematochezia. 6 weeks ago she was admitted with an episode of pancreatitis that was felt to be gallstone related. An MRCP at that time confirmed the presence of gallstones is seen by ultrasound however there was no ductal dilatation. She was treated conservatively. She did not want surgery at that time. She was going to be seen as an outpatient for further discussion of cholecystectomy. Following discharge she was well until 2 days ago. The pain this time was more severe than it was previously. She has not had jaundice or hepatitis in the past. Allergies Allergy/AdvReac Type Severity Reaction Status Date / Time azithromycin AdvReac Severe itchy Unverified 12/15/18 10:51 swollen body ~ difficulty breathing procaine [From Novocain] AdvReac Intermediate Patient Unverified 12/15/18 10:51 states it just doesn't work tuberculin,PPD,multi-puncture AdvReac Intermediate red~itchy~s Unverified 12/15/18 10:51 bogdan Home Medications Home Medications Medication Instructions Recorded Confirmed Type No Known Home Medications 12/15/18 12/15/18 History Patient History Medical History No significant past medical history (Chronic) Pancreatitis Surgical History No significant past surgical history (Chronic) Family History Other Cancer Diabetes Social History Preferred Language: Congolese Communication Ability: Effective 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 Beliefs That Will Affect Care: None marital status: Current Living Situation: Spouse Feels Safe at Home: Yes Smoking Status: Never smoker Second Hand Exposure: No ; Hx Alcohol Use: No Hx Substance Use: No during the past year weight has: decreased > 10 lbs Review of Systems Review of Systems: All systems reviewed & are unremarkable except as noted in HPI & below Physical Exam Constitutional: + obese; no acute distress Neck: trachea midline, no thyromegaly Respiratory: normal respiratory effort, lungs clear to auscultation Cardiovascular: Rate/Rhythm: regular rate and regular rhythm Gastrointestinal (Abdomen): Inspection/Auscultation: abdomen normal to inspection; abdomen not distended Percussion/Palpation: + abdomen tender (Upper abdomen most severe in the subxiphoid area but also tender in the right upper quadrant greater than left upper quadrant) and abdomen soft Skin: no rashes, warm and dry Lymphatic: no cervical lymphadenopathy Results & Data Vital Signs (Past 12 Hours) Vital Signs Temp Pulse Resp BP Pulse Ox 12/15/18 17:00 85 21 132/96 96 12/15/18 16:41 83 16 142/104 H 96 12/15/18 16:00 88 20 139/95 97 12/15/18 15:30 80 19 144/98 H 97 12/15/18 15:05 78 23 147/99 H 97 12/15/18 14:00 79 13 140/93 97 12/15/18 13:32 80 15 136/97 97 12/15/18 13:00 76 15 100 12/15/18 12:54 79 21 98 12/15/18 12:41 81 18 167/109 H 99 12/15/18 10:15 37.9 C H 102 H 20 139/99 98 Laboratory Results 12/15/18 12/15/18 12/15/18 Range/Units 12:55 11:02 11:02 WBC (4.8-10.8) K/uL RBC (4.2-5.4) M/uL Hgb (12.0-16.0) g/dL Hct (37-47) % MCV (80-100) fL MCH (25-34) pg MCHC (32-36) g/dL RDW Std Deviation (36.4-46.3) fL RDW Coeff of Josseline (11.5-14.5) % Plt Count (130-400) K/uL MPV (7.4-10.4) fL Immature Gran % (Auto) % Neut % (Auto) % Lymph % (Auto) % [place] % (Auto) % Eos % (Auto) % Baso % (Auto) % Immature Gran # (Auto) (0.00-0.02) K/uL Neut # (Auto) (1.4-6.5) K/uL Lymph # (Auto) (1.2-3.4) K/uL [place] # (Auto) (0.11-0.59) K/uL Eos # (Auto) (0-0.5) K/uL Baso # (Auto) (0-0.2) K/uL Sodium 138 (136-145) mmol/L Potassium 3.5 (3.5-5.1) mmol/L Chloride 107 (98-107) mmol/L Carbon Dioxide 26 (21-32) mmol/L Anion Gap 5.0 (3-11) BUN 9 (7-18) mg/dl Creatinine 0.75 (0.6-1.2) mg/dl Est Cr Clr Drug Dosing Not Reportable Est GFR ( Amer) 116.4 Est GFR (Non-Af Amer) 100.4 BUN/Creatinine Ratio 11.8 (10-20) Glucose 85 (70-99) mg/dl Lactate 1.3 (0.4-2.0) mmol/L Calcium 8.6 (8.5-10.1) mg/dl Total Bilirubin 1.1 H (0.2-1) mg/dl AST 120 H (15-37) U/L ALT 343 H (12-78) U/L Alkaline Phosphatase 151 H (45-117) U/L Total Protein 7.3 (6.4-8.2) gm/dl Albumin 3.4 (3.4-5.0) gm/dl Globulin 3.9 (2.5-4.0) gm/dl Albumin/Globulin Ratio 0.9 (0.9-2) Lipase 4169 H (73-393) U/L Urine Color Yellow Urine Appearance Clear (Clear) Urine pH 7.5 (4.5-7.5) Ur Specific [place] 1.039 H (1.000-1.030) Urine Protein Negative (Negative) Urine Glucose (UA) Negative (Negative) Urine Ketones Trace H (Negative) Urine Blood Negative (Negative) Urine Nitrite Negative (Negative) Urine Bilirubin Negative (Negative) Urine Urobilinogen Negative (Negative) Ur Leukocyte Esterase Negative (Negative) 12/15/18 Range/Units 11:02 WBC 10.25 (4.8-10.8) K/uL RBC 4.63 (4.2-5.4) M/uL Hgb 13.8 (12.0-16.0) g/dL Hct 40.8 (37-47) % MCV 88.1 (80-100) fL MCH 29.8 (25-34) pg MCHC 33.8 (32-36) g/dL RDW Std Deviation 45.0 (36.4-46.3) fL RDW Coeff of Josseline 13.9 (11.5-14.5) % Plt Count 306 (130-400) K/uL MPV 9.9 (7.4-10.4) fL Immature Gran % (Auto) 0.2 % Neut % (Auto) 76.3 % Lymph % (Auto) 15.2 % [place] % (Auto) 7.8 % Eos % (Auto) 0.3 % Baso % (Auto) 0.2 % Immature Gran # (Auto) 0.02 (0.00-0.02) K/uL Neut # (Auto) 7.82 H (1.4-6.5) K/uL Lymph # (Auto) 1.56 (1.2-3.4) K/uL [place] # (Auto) 0.80 H (0.11-0.59) K/uL Eos # (Auto) 0.03 (0-0.5) K/uL Baso # (Auto) 0.02 (0-0.2) K/uL Sodium (136-145) mmol/L Potassium (3.5-5.1) mmol/L Chloride (98-107) mmol/L Carbon Dioxide (21-32) mmol/L Anion Gap (3-11) BUN (7-18) mg/dl Creatinine (0.6-1.2) mg/dl Est Cr Clr Drug Dosing Est GFR ( Amer) Est GFR (Non-Af Amer) BUN/Creatinine Ratio (10-20) Glucose (70-99) mg/dl Lactate (0.4-2.0) mmol/L Calcium (8.5-10.1) mg/dl Total Bilirubin (0.2-1) mg/dl AST (15-37) U/L ALT (12-78) U/L Alkaline Phosphatase (45-117) U/L Total Protein (6.4-8.2) gm/dl Albumin (3.4-5.0) gm/dl Globulin (2.5-4.0) gm/dl Albumin/Globulin Ratio (0.9-2) Lipase (73-393) U/L Urine Color Urine Appearance (Clear) Urine pH (4.5-7.5) Ur Specific [place] (1.000-1.030) Urine Protein (Negative) Urine Glucose (UA) (Negative) Urine Ketones (Negative) Urine Blood (Negative) Urine Nitrite (Negative) Urine Bilirubin (Negative) Urine Urobilinogen (Negative) Ur Leukocyte Esterase (Negative) Diagnostic Findings CT OF THE ABDOMEN AND PELVIS WITH CONTRAST CLINICAL HISTORY: Recent gallstone pancreatitis. Abdominal pain. COMPARISON STUDY: CT of the abdomen and pelvis, right upper quadrant ultrasound and MRCP November 03, 2018. TECHNIQUE: Following IV administration of 94 mL of Optiray-320, axial images of the abdomen and pelvis were obtained from the lung bases to the proximal femurs. Images were reviewed in the axial, sagittal, and coronal planes. IV contrast was administered without complication. Automated exposure control was utilized for the study. A dose lowering technique was utilized adhering to the principles of ALARA. CT DOSE: 1458.31 mGy.cm FINDINGS: No pneumatosis, free air or portal venous gas is present. The liver, spleen, adrenal glands are unremarkable. Several subcentimeter left renal lesions are too small characterize but are probably benign. The right kidney is normal. There is no hydronephrosis. Moderate peripancreatic infiltration and fluid is noted. This extends into the mesentery and left anterior pararenal space. There is no evidence for pancreatic necrosis. The gland is edematous. No peripancreatic fluid collection is present. There is no pancreatic ductal dilatation. Slight biliary ductal dilatation has developed since CT of November 03, 2018. The common bile duct measures 7 mm in caliber. No common bile duct calculi identified although these are often occult by CT. Mild gallbladder distention with trace adjacent infiltration is noted. There is no evidence for a bowel obstruction. The appendix is normal. No adnexal mass is present. The ovaries are not enlarged. There is a small amount of fluid within the pelvis. There are no suspicious osseous lesions within visualized skeletal structures. Atrial vasculature is patent. IMPRESSION: 1. Moderate peripancreatic infiltration and fluid consistent with acute pancreatitis. 2. Mild gallbladder distention with trace adjacent infiltration. Acute cholecystitis cannot be excluded. 3. Interval development of mild biliary ductal dilatation which could be correlated with liver function tests. No common bile duct calculi identified although these are often occult by CT. (1) Pancreatitis Acute pancreatitis complication: unspecified Chronicity: acute Pancreatitis type: unspecified pancreatitis type Qualified Code(s): K85.90 - Acute pancreatitis without necrosis or infection, unspecified
[2018-12-15] MEDS: NSS + 20MEQ KCL 20 MEQ/1,000 ML BAG IV SCH (18:40)
[2018-12-15] MEDS: PIPERACILLIN/TAZOBACTAM 4.5 GM in DEXTROSE 5% 100 ML IV SCH (19:24)
--- NOTE | 2018-12-15 22:44 | Magnetic Resonance Report ---
MRCP CLINICAL HISTORY: Pancreatitis. Generalized abdominal pain. COMPARISON STUDY: MRCP dated 11/03/2018. Abdominal CT dated 12/15/2018. TECHNIQUE: Abdominal MRCP is performed utilizing various T2-weighted sequences in the axial and coron al planes. IV contrast was not administered for this examination. 3-D reformats are created and asses sed. FINDINGS: There are numerous small gallstones identified. The gallbladder wall appears mildly thicken ed and there is pericholecystic fluid. There is no intra or extrahepatic biliary ductal dilatation. T he common bile duct measures up to 4 mm in diameter. There are no filling defects within the common b ile duct to suggest choledocholithiasis. The pancreatic duct is normal in caliber. The pancreas appears slightly edematous. Mild stranding and fluid seen around the distal pancreatic b don and tail suggesting acute pancreatitis. The unenhanced liver, spleen, adrenal glands are grossly normal. The kidneys are normal in size and without hydronephrosis. A subcentimeter complex cyst is no [place] in the interpolar left kidney. There is no bowel obstruction. There is trace perihepatic and isa splenic fluid. No upper abdominal adenopathy is identified. There is no pleural effusion. The bony st ructures are intact as imaged. IMPRESSION: 1. Cholelithiasis with findings concerning for acute cholecystitis. 2. There is no significant intra or extrahepatic biliary ductal dilatation. 3. There is no convincing evidence of choledocholithiasis. 4. Findings indicate acute pancreatitis. Correlation with clinical findings and serum amylase/lipase levels will required. Electronically signed by: Jake Kim M.D. 12/15/2018 10:43 PM
[2018-12-15] MEDS: KETOROLAC 30 MG/ML VIAL IV PRN (23:46)
[2018-12-16] MEDS: PIPERACILLIN/TAZOBACTAM 4.5 GM in DEXTROSE 5% 100 ML IV SCH ×3 (04:08→19:44)
[2018-12-16 06:07] LABS: Basophils # (auto) 0.02 K/uL (0-0.2); Basophils % (auto) 0.2 %; Eosinophils # (auto) 0.22 K/uL (0-0.5); Eosinophils % (auto) 2.5 %; Hematocrit (blood only) 36.9 % (37-47); Hemoglobin 12.4 g/dL (12.0-16.0); Immature Granulocytes # (auto) 0.03 K/uL (0.00-0.02); Immature Granulocytes % (auto) 0.3 %; Lymphocytes % (auto) 21.5 %; Mean Corpuscular Hemoglobin 29.8 pg (25-34); Mean Corpuscular Hgb Conc 33.6 g/dL (32-36); Mean Corpuscular Volume 88.7 fL (80-100); Mean Platelet Volume 9.8 fL (7.4-10.4); Monocytes # (auto) 0.84 K/uL (0.11-0.59); Monocytes % (auto) 9.5 %; Neutrophils # (auto) 5.81 K/uL (1.4-6.5); Platelet Count 284 K/uL (130-400); RDW Coefficient of Variation 13.9 % (11.5-14.5); RDW Standard Deviation 45.2 fL (36.4-46.3); Red Blood Count 4.16 M/uL (4.2-5.4); White Blood Count 8.82 K/uL (4.8-10.8)
[2018-12-16 06:44] LABS: BUN Creatinine Ratio 14.1 (10-20); Calcium 7.8 mg/dl (8.5-10.1); Est GFR (African American) 127.1; Est GFR (Non-African American) 109.7; Magnesium 2.1 mg/dl (1.8-2.4); Phosphorus 2.6 mg/dl (2.5-4.9); Potassium 3.3 mmol/L (3.5-5.1)
[2018-12-16] MEDS: KETOROLAC 30 MG/ML VIAL IV PRN ×2 (07:53→17:10)
[2018-12-16 08:48] LABS: Albumin Level 3.1 gm/dl (3.4-5.0); Bilirubin Direct 0.2 mg/dl (0-0.2); Bilirubin,Total 0.9 mg/dl (0.2-1); Total Protein 6.6 gm/dl (6.4-8.2)
[2018-12-16] MEDS ORDERED: MoRPHine SULFATE 2 MG/ML CARP IV PRN (09:53)
--- NOTE | 2018-12-16 09:58 | Gastrointestinal Consultation ---
Date of Consultation December 16, 2018 Assessment & Plan (1) Pancreatitis: (2) Acute calculous cholecystitis: 1. MRCP negative. No role for ERCP at this time. 2. Continue supportive care including IV fluid resuscitation/antibiotics/analgesics as prescribed. 3. Continue to trend liver panel/lipase. 4. Recommend cholecystectomy. Timing per general surgery. Thank you for allowing us to participate in the care of this pleasant patient. If you have questions or concerns, please do not hesitate to contact us. Supervising Physician Co-Signing Physician Notes I personally evaluated the patient and agree with the findings as documented by DEVEN Tello Exam: abd: soft, nt, nd Plan: appears to have a distal CBD stone on IOC done today. Spoke with Deb HILL who will evaluate for possible ERCP. History of Present Illness Reason for Consultation: Gall stone pancreatitis Requesting Physician: Dr. Garcia Attending Physician: Ella Garcia MD History of Present Illness Patient is a 38 year-old female with a history of suspected gall stone pancreatitis admitted in early October. She states she did discuss consideration of cholecystectomy but did not wish to proceed with surgery at that time. 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 At that time, she states she was developing returning epigastric pain and vomiting. She restricted her diet but the pain persisted and worsened prompting ER evaluation. She states she has been eating ~650 calories per day with only lean protein and fruits/vegetables in an effort to continue her weight loss g oals. No fatty or greasy foods or alcohol. CT imaging performed on arrival includes changes consisted with acute pancreatitis, acute calculous cholecystitis and mild CBD dilation. MRCP was negative, however, for any choledocholithiasis. Laboratory testing today includes a WBC 8.82, AST 47, ALT 213, ALP 119 and lipase of 548 which is down from 4169 yesterday. She remains NPO and is receiving IV fluids/Zosyn. Vital signs are stable. Symptomatically, she reports improved abdominal pain which she rates as 3/10 localized in the epigastric region. No n/v, fevers/chills or other GI complaints. Has been seen by general surgery. Allergies Allergy/AdvReac Type Severity Reaction Status Date / Time erythromycin base Allergy Intermediate Verified 12/16/18 11:47 procaine [From Novocain] AdvReac Intermediate Patient Unverified 12/15/18 10:51 states it just doesn't work tuberculin,PPD,multi-puncture AdvReac Intermediate red~itchy~s Unverified 12/15/18 10:51 wollen Home Medications Home Medications Medication Instructions Recorded Confirmed Type No Known Home Medications 12/15/18 12/15/18 History Patient History Medical History No significant past medical history (Chronic) Pancreatitis Surgical History No significant past surgical history (Chronic) Family History Other Cancer Diabetes Social History Preferred Language: Azeri Communication Ability: Effective Roving Hauler Required: No Beliefs That Will Affect Care: None marital status: Current Living Situation: Spouse Other Information That Helps Us Care for You: No Feels Safe at Home: Yes Safety Concerns: Feels Safe At This Time Smoking Status: Never smoker Second Hand Exposure: No ; Hx Alcohol Use: No Hx Substance Use: No during the past year weight has: decreased > 10 lbs Review of Systems Review of Systems: All systems reviewed & are unremarkable except as noted in HPI & below Physical Exam Constitutional: WD/WN, vitals as above Eyes: EOM intact bilaterally Neck: normal appearance Respiratory: normal respiratory effort, lungs clear to auscultation Cardiovascular: Rate/Rhythm: regular rate and regular rhythm Heart Sounds: no gallop and no murmur Gastrointestinal (Abdomen): Inspection/Auscultation: normal bowel sounds Percussion/Palpation: abdomen soft; abdomen nontender Musculoskeletal: Extremities: no cyanosis no lower extremity edema Skin: no rashes, warm and dry Neurologic: moves all extremities Psychiatric: A+Ox3, euthymic affect Results & Data Vital Signs (Past 12 Hours) Vital Signs Temp Pulse Resp BP Pulse Ox 12/16/18 07:30 37.0 C 74 16 105/69 95 12/15/18 23:52 36.8 C 74 18 118/82 96 Laboratory Results Abnormal lab results 12/15/18 12/15/18 12/15/18 Range/Units 11:02 11:02 12:55 RBC (4.2-5.4) M/uL Hct (37-47) % Immature Gran # (Auto) (0.00-0.02) K/uL Neut # (Auto) 7.82 H (1.4-6.5) K/uL [place] # (Auto) 0.80 H (0.11-0.59) K/uL Potassium (3.5-5.1) mmol/L Chloride (98-107) mmol/L Calcium (8.5-10.1) mg/dl Total Bilirubin 1.1 H (0.2-1) mg/dl AST 120 H (15-37) U/L ALT 343 H (12-78) U/L Alkaline Phosphatase 151 H (45-117) U/L Albumin (3.4-5.0) gm/dl Lipase 4169 H (73-393) U/L Ur Specific [place] 1.039 H (1.000-1.030) Urine Ketones Trace H (Negative) 12/16/18 12/16/18 12/16/18 Range/Units 05:52 05:52 05:52 RBC 4.16 L (4.2-5.4) M/uL Hct 36.9 L (37-47) % Immature Gran # (Auto) 0.03 H (0.00-0.02) K/uL Neut # (Auto) (1.4-6.5) K/uL [place] # (Auto) 0.84 H (0.11-0.59) K/uL Potassium 3.3 L (3.5-5.1) mmol/L Chloride 111 H (98-107) mmol/L Calcium 7.8 L (8.5-10.1) mg/dl Total Bilirubin (0.2-1) mg/dl AST 47 H (15-37) U/L ALT 213 H (12-78) U/L Alkaline Phosphatase 119 H (45-117) U/L Albumin 3.1 L (3.4-5.0) gm/dl Lipase 548 H (73-393) U/L Ur Specific [place] (1.000-1.030) Urine Ketones (Negative) PG Care Time/CCT Total # of Minutes Spent Total Time Spent with Patient: Total time spent is greater than 50% in coordination of care (as documented) at patient's floor/unit and/or counseling patient: (1) Pancreatitis Acute pancreatitis complication: unspecified Chronicity: acute Pancreatitis type: unspecified pancreatitis type Qualified Code(s): K85.90 - Acute pancreatitis without necrosis or infection, unspecified
[2018-12-16 10:46] LABS: Pregnancy Test, Serum Negative (Negative)
[2018-12-16] MEDS: NSS + 20MEQ KCL 20 MEQ/1,000 ML BAG IV SCH ×2 (11:00→17:32)
--- NOTE | 2018-12-16 11:00 | Surgery Progress Note ---
Date of Service December 16, 2018 Assessment & Plan (1) Pancreatitis: Gallstone pancreatitis with acute cholecystitis -vitals stable, afebrile - MRCP showing no choledocholithiasis but acute cholecystitis - no leukocytosis - Improvement of LFTS and t.bili and lipase t. bili 1.1 --> 0.9 AST 120 --> 47 ALT 343 --> 213 ALK 151 --> 119 Lipase 4169 --> 548 Plan: Plan for laparoscopic cholecystectomy with intraoperative cholangiogram. Informed patient of procedure risks and possible conversion to open cholecystectomy . Patient understood and informed consent obtained by Dr. Fletcher. Continue IV Zosyn Continue NPO Continue pain management and zofran prn Continue IV fluid hydration Dr. Fletcher has seen patient and agrees with above. Supervising Physician Co-Signing Physician Notes I interviewed and examined this patient laboratory studies. I agree with the above note. We discussed laparoscopic cholecystectomy and the possible need to convert to an open procedure and discussed possible complications associated with those procedures. I answered her questions. Her was also present. She signed a consent Subjective feeling better today, pain still present but less in severity no n/v Physical Exam Constitutional: WD/WN, vitals as above no acute distress Respiratory: normal respiratory effort Skin: no rashes, warm and dry Psychiatric: A+Ox3, euthymic affect Results & Data Vital Signs (Past 12 Hours) Vital Signs Temp Pulse Resp BP Pulse Ox 12/16/18 07:30 37.0 C 74 16 105/69 95 12/15/18 23:52 36.8 C 74 18 118/82 96 Laboratory Results 12/16/18 12/16/18 12/16/18 Range/Units 10:09 05:52 05:52 WBC (4.8-10.8) K/uL RBC (4.2-5.4) M/uL Hgb (12.0-16.0) g/dL Hct (37-47) % MCV (80-100) fL MCH (25-34) pg MCHC (32-36) g/dL RDW Std Deviation (36.4-46.3) fL RDW Coeff of Josseline (11.5-14.5) % Plt Count (130-400) K/uL MPV (7.4-10.4) fL Immature Gran % (Auto) % Neut % (Auto) % Lymph % (Auto) % Preston % (Auto) % Eos % (Auto) % Baso % (Auto) % Immature Gran # (Auto) (0.00-0.02) K/uL Neut # (Auto) (1.4-6.5) K/uL Lymph # (Auto) (1.2-3.4) K/uL Preston # (Auto) (0.11-0.59) K/uL Eos # (Auto) (0-0.5) K/uL Baso # (Auto) (0-0.2) K/uL Sodium 139 (136-145) mmol/L Potassium 3.3 L (3.5-5.1) mmol/L Chloride 111 H (98-107) mmol/L Carbon Dioxide 24 (21-32) mmol/L Anion Gap 4.0 (3-11) BUN 10 (7-18) mg/dl Creatinine 0.69 (0.6-1.2) mg/dl Est Cr Clr Drug Dosing 141.0 Est GFR ( Amer) 127.1 Est GFR (Non-Af Amer) 109.7 BUN/Creatinine Ratio 14.1 (10-20) Glucose 73 (70-99) mg/dl Lactate (0.4-2.0) mmol/L Calcium 7.8 L (8.5-10.1) mg/dl Phosphorus 2.6 (2.5-4.9) mg/dl Magnesium 2.1 (1.8-2.4) mg/dl Total Bilirubin 0.9 (0.2-1) mg/dl Direct Bilirubin 0.2 (0-0.2) mg/dl AST 47 H (15-37) U/L ALT 213 H (12-78) U/L Alkaline Phosphatase 119 H (45-117) U/L Total Protein 6.6 (6.4-8.2) gm/dl Albumin 3.1 L (3.4-5.0) gm/dl Globulin (2.5-4.0) gm/dl Albumin/Globulin Ratio (0.9-2) Lipase 548 H (73-393) U/L HCG, Qual Negative (Negative) Urine Color Urine Appearance (Clear) Urine pH (4.5-7.5) Ur Specific [place] (1.000-1.030) Urine Protein (Negative) Urine Glucose (UA) (Negative) Urine Ketones (Negative) Urine Blood (Negative) Urine Nitrite (Negative) Urine Bilirubin (Negative) Urine Urobilinogen (Negative) Ur Leukocyte Esterase (Negative) 12/16/18 12/15/18 12/15/18 Range/Units 05:52 12:55 11:02 WBC 8.82 (4.8-10.8) K/uL RBC 4.16 L (4.2-5.4) M/uL Hgb 12.4 (12.0-16.0) g/dL Hct 36.9 L (37-47) % MCV 88.7 (80-100) fL MCH 29.8 (25-34) pg MCHC 33.6 (32-36) g/dL RDW Std Deviation 45.2 (36.4-46.3) fL RDW Coeff of Josseline 13.9 (11.5-14.5) % Plt Count 284 (130-400) K/uL MPV 9.8 (7.4-10.4) fL Immature Gran % (Auto) 0.3 % Neut % (Auto) 66.0 % Lymph % (Auto) 21.5 % Preston % (Auto) 9.5 % Eos % (Auto) 2.5 % Baso % (Auto) 0.2 % Immature Gran # (Auto) 0.03 H (0.00-0.02) K/uL Neut # (Auto) 5.81 (1.4-6.5) K/uL Lymph # (Auto) 1.90 (1.2-3.4) K/uL Preston # (Auto) 0.84 H (0.11-0.59) K/uL Eos # (Auto) 0.22 (0-0.5) K/uL Baso # (Auto) 0.02 (0-0.2) K/uL Sodium (136-145) mmol/L Potassium (3.5-5.1) mmol/L Chloride (98-107) mmol/L Carbon Dioxide (21-32) mmol/L Anion Gap (3-11) BUN (7-18) mg/dl Creatinine (0.6-1.2) mg/dl Est Cr Clr Drug Dosing Est GFR ( Amer) Est GFR (Non-Af Amer) BUN/Creatinine Ratio (10-20) Glucose (70-99) mg/dl Lactate 1.3 (0.4-2.0) mmol/L Calcium (8.5-10.1) mg/dl Phosphorus (2.5-4.9) mg/dl Magnesium (1.8-2.4) mg/dl Total Bilirubin (0.2-1) mg/dl Direct Bilirubin (0-0.2) mg/dl AST (15-37) U/L ALT (12-78) U/L Alkaline Phosphatase (45-117) U/L Total Protein (6.4-8.2) gm/dl Albumin (3.4-5.0) gm/dl Globulin (2.5-4.0) gm/dl Albumin/Globulin Ratio (0.9-2) Lipase (73-393) U/L HCG, Qual (Negative) Urine Color Yellow Urine Appearance Clear (Clear) Urine pH 7.5 (4.5-7.5) Ur Specific [place] 1.039 H (1.000-1.030) Urine Protein Negative (Negative) Urine Glucose (UA) Negative (Negative) Urine Ketones Trace H (Negative) Urine Blood Negative (Negative) Urine Nitrite Negative (Negative) Urine Bilirubin Negative (Negative) Urine Urobilinogen Negative (Negative) Ur Leukocyte Esterase Negative (Negative) 12/15/18 12/15/18 Range/Units 11:02 11:02 WBC 10.25 (4.8-10.8) K/uL RBC 4.63 (4.2-5.4) M/uL Hgb 13.8 (12.0-16.0) g/dL Hct 40.8 (37-47) % MCV 88.1 (80-100) fL MCH 29.8 (25-34) pg MCHC 33.8 (32-36) g/dL RDW Std Deviation 45.0 (36.4-46.3) fL RDW Coeff of Josseline 13.9 (11.5-14.5) % Plt Count 306 (130-400) K/uL MPV 9.9 (7.4-10.4) fL Immature Gran % (Auto) 0.2 % Neut % (Auto) 76.3 % Lymph % (Auto) 15.2 % Preston % (Auto) 7.8 % Eos % (Auto) 0.3 % Baso % (Auto) 0.2 % Immature Gran # (Auto) 0.02 (0.00-0.02) K/uL Neut # (Auto) 7.82 H (1.4-6.5) K/uL Lymph # (Auto) 1.56 (1.2-3.4) K/uL Preston # (Auto) 0.80 H (0.11-0.59) K/uL Eos # (Auto) 0.03 (0-0.5) K/uL Baso # (Auto) 0.02 (0-0.2) K/uL Sodium 138 (136-145) mmol/L Potassium 3.5 (3.5-5.1) mmol/L Chloride 107 (98-107) mmol/L Carbon Dioxide 26 (21-32) mmol/L Anion Gap 5.0 (3-11) BUN 9 (7-18) mg/dl Creatinine 0.75 (0.6-1.2) mg/dl Est Cr Clr Drug Dosing Not Reportable Est GFR ( Amer) 116.4 Est GFR (Non-Af Amer) 100.4 BUN/Creatinine Ratio 11.8 (10-20) Glucose 85 (70-99) mg/dl Lactate (0.4-2.0) mmol/L Calcium 8.6 (8.5-10.1) mg/dl Phosphorus (2.5-4.9) mg/dl Magnesium (1.8-2.4) mg/dl Total Bilirubin 1.1 H (0.2-1) mg/dl Direct Bilirubin (0-0.2) mg/dl AST 120 H (15-37) U/L ALT 343 H (12-78) U/L Alkaline Phosphatase 151 H (45-117) U/L Total Protein 7.3 (6.4-8.2) gm/dl Albumin 3.4 (3.4-5.0) gm/dl Globulin 3.9 (2.5-4.0) gm/dl Albumin/Globulin Ratio 0.9 (0.9-2) Lipase 4169 H (73-393) U/L HCG, Qual (Negative) Urine Color Urine Appearance (Clear) Urine pH (4.5-7.5) Ur Specific [place] (1.000-1.030) Urine Protein (Negative) Urine Glucose (UA) (Negative) Urine Ketones (Negative) Urine Blood (Negative) Urine Nitrite (Negative) Urine Bilirubin (Negative) Urine Urobilinogen (Negative) Ur Leukocyte Esterase (Negative) Diagnostic Findings MRCP CLINICAL HISTORY: Pancreatitis. Generalized abdominal pain. COMPARISON STUDY: MRCP dated 11/03/2018. Abdominal CT dated 12/15/2018. TECHNIQUE: Abdominal MRCP is performed utilizing various T2-weighted sequences in the axial and coronal planes. IV contrast was not administered for this ex amination. 3-D reformats are created and assessed. FINDINGS: There are numerous small gallstones identified. The gallbladder wall appears mildly thickened and there is pericholecystic fluid. There is no intra or extrahepatic biliary ductal dilatation. The common bile duct measures up to 4 mm in diameter. There are no filling defects within the common bile duct to suggest choledocholithiasis. The pancreatic duct is normal in caliber. The pancreas appears slightly edematous. Mild stranding and fluid seen around the distal pancreatic body and tail suggesting acute pancreatitis. The unenhanced liver, spleen, adrenal glands are grossly normal. The kidneys are normal in size and without hydronephrosis. A subcentimeter complex cyst is noted in the interpolar left kidney. There is no bowel obstruction. There is trace perihepatic and perisplenic fluid. No upper abdominal adenopathy is identified. There is no pleural effusion. The bony structures are intact as imaged. IMPRESSION: 1. Cholelithiasis with findings concerning for acute cholecystitis. 2. There is no significant intra or extrahepatic biliary ductal dilatation. 3. There is no convincing evidence of choledocholithiasis. 4. Findings indicate acute pancreatitis. Correlation with clinical findings and serum amylase/lipase levels will required. (1) Pancreatitis Acute pancreatitis complication: unspecified Chronicity: acute Pancreatitis type: unspecified pancreatitis type Qualified Code(s): K85.90 - Acute pancreatitis without necrosis or infection, unspecified
[2018-12-16] MEDS ORDERED: MIDAZOLAM HCL 1 MG/ML 2ML VIAL ONE (11:09)
[2018-12-16] MEDS ORDERED: fentaNYL citrate 100 MCG/2 ML VIAL ONE ×3 (11:09→13:35)
[2018-12-16] MEDS ORDERED: DEXAMETHASONE SOD INJ 4 MG/ML VIAL ONE (11:11)
[2018-12-16] MEDS ORDERED: ONDANSETRON INJ 2 MG/ML 2 ML VIAL ONE (11:12)
[2018-12-16] MEDS ORDERED: ROCURONIUM BROMIDE 10 MG/ML 5 ML VIAL ONE (11:12)
[2018-12-16] MEDS ORDERED: PROPOFOL IV EMULSION 10 MG/ML 20 ML VIAL IV ONE (11:12)
[2018-12-16] MEDS ORDERED: LIDOCAINE HCL 2% 2 ML VIAL/AMP(20MG/ML) INFIL ONE (11:12)
--- NOTE | 2018-12-16 11:12 | Anesthesiology Consultation ---
Date of Service December 16, 2018 Assessment & Plan (1) Encounter for pre-operative examination: Chart Review Chart Review: Acceptable Risk for Surgery History Surgery Operation Date: 12/16/18 10:25 Proposed Procedures p Laparoscopic Cholecystectomy with Cholangiogram - Jimmie Fletcher MD Height/Weight Height: 5 ft 6.5 in Weight: 113.3 kg Allergies Allergy/AdvReac Type Severity Reaction Status Date / Time azithromycin AdvReac Severe itchy Unverified 12/15/18 10:51 swollen body ~ difficulty breathing procaine [From Novocain] AdvReac Intermediate Patient Unverified 12/15/18 10:51 states it just doesn't work tuberculin,PPD,multi-puncture AdvReac Intermediate red~itchy~s Unverified 12/15/18 10:51 wollen Medications Home Medications Medication Instructions Recorded Confirmed Last Taken No Known Home Medications 12/15/18 12/15/18 Unknown Active Medications Generic Name Dose Route Start Last Admin Trade Name Freq PRN Reason Stop Dose Admin Potassium Chloride/Sodium Chloride 20 meq in 1,000 mls @ 100 mls/hr 12/15/18 18:15 12/16/18 11:00 Normal Saline W/20 Meq Kcl IV 01/14/19 18:14 100 mls/hr .Q10H PARK Administration Piperacillin Sod/Tazobactam 120 mls @ 30 mls/hr 12/15/18 19:00 12/16/18 11:04 Sod 4.5 gm/ Dextrose IV 12/25/18 18:59 30 mls/hr Q8H PARK Administration Protocol Ioversol 94 ml 12/15/18 12:17 12/15/18 12:18 Optiray 320 100ml IV 12/19/18 12:16 94 ml ONCE PRN Administration Interaction Checking Ketorolac Tromethamine 30 mg 12/15/18 17:39 12/16/18 07:53 Toradol IV 12/20/18 17:38 30 mg Q6H PRN Administration Pain NPO Date Last Intake of Fluids: 12/15/18 Date Last Intake of Solids: 12/15/18 Past Medical History Medical History No significant past medical history (Chronic) Pancreatitis Past Family History Family History Other Cancer Diabetes Past Surgical History Surgical History No significant past surgical history (Chronic) Social History Smoking Status: Never smoker Hx Alcohol Use: No Hx Substance Use: No substance use type: does not use Physical Exam Vital Signs Last Vital Signs Temp 37.0 C 12/16/18 07:30 Pulse 74 12/16/18 07:30 Resp 16 12/16/18 07:30 BP 105/69 12/16/18 07:30 Pulse Ox 95 12/16/18 07:30 Testing Laboratory Results 12/16/18 05:52 12/16/18 05:52 Urine Color Yellow 12/15/18 12:55 Urine Appearance Clear (Clear) 12/15/18 12:55 Urine pH 7.5 (4.5-7.5) 12/15/18 12:55 Ur Specific [place] 1.039 (1.000-1.030) H 12/15/18 12:55 Urine Protein Negative (Negative) 12/15/18 12:55 Urine Glucose (UA) Negative (Negative) 12/15/18 12:55 Urine Ketones Trace (Negative) H 12/15/18 12:55 Urine Nitrite Negative (Negative) 12/15/18 12:55 Ur Leukocyte Esterase Negative (Negative) 12/15/18 12:55 Electrocardiogram Date: 11/04/18 Findings: + NSR @ (65) and + NSST changes Echocardiogram Date: 11/05/18 LV Function: normal Valvular Disease: + no significant valvular disease
[2018-12-16] MEDS ORDERED: KETOROLAC 30 MG/ML VIAL IV PRN (11:13)
[2018-12-16] MEDS ORDERED: ONDANSETRON INJ 2 MG/ML 2 ML VIAL IV PRN (11:13)
[2018-12-16] MEDS ORDERED: ATROPINE SULFATE 0.1 MG/ML 10ML SYR IV PRN (11:13)
[2018-12-16] MEDS ORDERED: HEPARIN (PORCINE) 1000 UNIT/ML 10 ML (CATH LAB USE ONLY) ONE (11:33)
[2018-12-16] MEDS ORDERED: CONRAY 60% 50 ML VIAL ONE (11:33)
[2018-12-16] MEDS ORDERED: CEFAZOLIN 250 MG/ML 1 GM VIAL ONE (11:33)
[2018-12-16] MEDS ORDERED: BUPIVACAINE 0.5 % 5 MG/1 ML MPF 30ML VIAL ONE (11:33)
[2018-12-16] MEDS ORDERED: NEOSTIGMINE METHYLSULFATE 5 MG/5 ML SYR ONE (12:22)
[2018-12-16] MEDS ORDERED: GLYCOPYRROLATE 0.2 MG/ML VIAL ONE (12:22)
--- NOTE | 2018-12-16 13:09 | Fluoroscopy Report ---
[place] cholangiogram OR HISTORY: Post cholecystectomy. FLUOROSCOPY TIME: 34 seconds. FINDINGS: Fluoroscopy was provided for an intraoperative cholangiogram status post cholecystectomy. C ontrast was injected through the cystic duct remnant. Common bile duct is unremarkable. There is a sm all intermittent filling defect of the distal common duct at or slightly proximal to the sphincter. T his may represent retained calculus present probable. Intrahepatic ducts appear unremarkable. Contrast extends into the small bowel. There is no intrahepat ic bile duct dilatation. IMPRESSION: Fluoroscopy provided for an intraoperative cholangiogram status post cholecystectomy. Sma ll filling defect distal common bile duct versus air bubble. The above report was generated using voice recognition software. It may contain grammatical, syntax or spelling errors. Electronically signed by: Jimmie Tamayo M.D. 12/16/2018 1:08 PM
[2018-12-16] MEDS ORDERED: FLOSEAL HEMOSTATIC MATRIX 10ML TOP ONE (13:27)
--- NOTE | 2018-12-16 13:51 | Post Operative Brief Note ---
Immediate Post Op Note v1 Date of Surgery December 16, 2018 Pre & Post Diagnosis Operation Date: 12/16/18 10:25 Pre-Op Diagnosis: History of Pancreatitis, Cholelithiasis Post-Op Diagnosis: History of Pancreatitis, Cholelithiasis I identified the patient and participated in the time-out.: Yes Procedure Operation Date: 12/16/18 10:25 Actual Procedures p Laparoscopic Cholecystectomy with Cholangiogram(Not Applicable) - Jimmie Fletcher MD Surgeon Jimmie Fletcher MD Automation Test Engineer Silvana Vega PA-C Estimated Blood Loss 7 Findings Consistent with Post-Op Diagnosis Specimens Gallbladder and contents Anesthesia Type General Complications none
[2018-12-16] MEDS: HYDROmorphone INJ 1 MG/ML SYRINGE IV PRN ×4 (14:09→14:24)
--- NOTE | 2018-12-16 14:34 | Anesthesiology Progress Note ---
Date of Service December 16, 2018 Anesthesia Post Procedure Vital Signs Vital Signs: Temp Pulse Pulse Pulse Resp BP BP 12/16/18 14:25 67 18 127/84 12/16/18 14:15 61 18 131/84 12/16/18 14:07 36.0 C L 80 22 135/83 12/16/18 11:36 36.9 C 79 16 135/85 12/16/18 07:30 37.0 C 74 16 105/69 12/15/18 23:52 36.8 C 74 18 118/82 12/15/18 17:30 36.8 C 82 16 129/79 12/15/18 17:00 85 21 132/96 12/15/18 16:41 83 16 142/104 H 12/15/18 16:00 88 20 139/95 12/15/18 15:30 80 19 144/98 H 12/15/18 15:05 78 23 147/99 H Pulse Ox 12/16/18 14:25 100 12/16/18 14:15 100 12/16/18 14:07 100 12/16/18 11:36 98 12/16/18 07:30 95 12/15/18 23:52 96 12/15/18 17:30 96 12/15/18 17:00 96 12/15/18 16:41 96 12/15/18 16:00 97 12/15/18 15:30 97 12/15/18 15:05 97 Pain Intensity Abdomen: Pain Intensity: 4 Transfer of Care Handoff Completed per policy Notes Mental Status: alert / awake / arousable Patient Amnestic to Procedure: Yes Nausea / Vomiting: adequately controlled Pain: adequately controlled Airway Patency, RR, SpO2: stable & adequate BP & HR: stable & adequate Hydration State: stable & adequate Anesthetic Complications: no major complications apparent
[2018-12-16] MEDS ORDERED: MoRPHine SULFATE 4 MG/ML 1 ML CARP\\VIAL IV PRN (15:08)
--- NOTE | 2018-12-16 16:05 | Operative Report ---
DATE OF OPERATION: 12/16/2018 PREOPERATIVE DIAGNOSES: Cholelithiasis, history of gallstone pancreatitis. POSTOPERATIVE DIAGNOSES: Cholelithiasis, history of gallstone pancreatitis. PROCEDURE: Intraoperative cholangiogram. SURGEON: Jimmie Fletcher MD. ASSEMBLER SEMICONDUCTOR: Silvana eVga PA-C. FINDINGS: The gallbladder was not dilated. The cystic duct was not dilated. There were stones within the gallbladder. The liver was of normal size and contour. The visible bowel appeared normal. The cholangiogram showed very mild dilatation of the common bile duct. The radicles filled, but there appeared to be a small defect in the common bile duct near the ampulla. There was some flow into the duodenum. The radicles appeared normal. TECHNIQUE: The patient was given a general anesthetic and the area was prepped and draped in the usual sterile fashion. Transverse incision was made below the umbilicus, carried down through the subcutaneous tissue to the fascia which was grasped with 2 Jennifer clamps and incised between. The peritoneum was identified, incised, and the introducer was placed bluntly. The abdomen was then insufflated to a pressure of 15 mmHg with carbon dioxide. The upper midline, midclavicular and anterior axillary introducers were placed under direct vision through small skin incisions. Traction was placed on the gallbladder. Then the peritoneum over the neck of the gallbladder was opened and peeled towards the common bile duct. This peritoneal opening was then carried down along the infundibulum and up along the infundibular attachments to the liver up towards the body. Some dissection of the infundibulum away from the liver was able to be performed and accomplished. I then opened the peritoneum working medially and opened the triangle of Calot where the cystic duct lymph node was identified. It was isolated away from the cystic duct and the feeding vessels from below were isolated, clipped and divided. That allowed better visualization of the cystic duct. The infundibulum was dissected away from the liver on the medial side giving even better mobility. The cystic duct was then skeletonized on the lateral and medial sides and I was then able to establish a plane behind it, which exposed what was probably a large lymphatic. This was skeletonized, clipped and divided. I then exposed the cystic artery which was also isolated, skeletonized, clipped and divided. That allowed for a good window behind the cystic duct to confirm the cystic duct gallbladder junction. One clip was placed at the gallbladder cystic duct junction and the cystic duct was partially transected. The cholangiocatheter was placed into the cystic duct and the balloon was inflated. The area was flushed and there was no leaking. Cholangiogram was performed with findings as above. The balloon was deflated and the cholangiocatheter was removed. The proximal cystic duct was clipped with 3 times and the partial transection of the cystic duct was then completed. I then elevated the infundibulum. There was another tubular structure that was either a posterior branch of the artery or a large lymphatic which was isolated, clipped and divided. The gallbladder was then peeled off the liver bed. There was an additional structure near the fundus of the gallbladder, was clipped and divided as well. The gallbladder was away from the liver, placed into an Endobag and brought out through the upper midline incision where I had to dilate the opening and open the gallbladder, remove the bile and some of the stones before the gallbladder could be extracted, but that was accomplished. That introducer was replaced and liver edge was elevated. There was an adhesion to the undersurface of the right lobe of the liver that had created a small tear in the capsule. There was some bleeding. This was controlled with cautery with ease. The subdiaphragmatic and subhepatic spaces were irrigated and the irrigation was removed. The gallbladder bed of the liver was inspected and there were 2 areas of oozing from there. They were controlled with cautery as well. The subhepatic and subdiaphragmatic spaces were again irrigated and irrigation removed until the return was fairly clear. The previous site of cautery was inspected on to the liver and that was no further bleeding. There was no further bleeding from the gallbladder bed, but I then placed FloSeal in the gallbladder bed and also at the site of the capsular tear. The liver was allowed to fall back into its anatomic position and the gas was allowed to escape. The introducers were removed and the fascia of the umbilical and upper midline introducer sites was closed with interrupted 0 Vicryl. The skin of all the incisions had been anesthetized prior to the incisions with 0.5% Marcaine. The skin was closed with 4-O Monocryl in a running or interrupted fashion. The estimated blood loss was 5 cc. Sponge needele and instrument counts were correct. The was transported to [facility]. I attest to the content of the Intraoperative Record and any orders documented therein. Any exceptions are noted below. KIRT
--- NOTE | 2018-12-16 18:09 | Hospitalist Progress Note ---
Date of Service December 16, 2018 Assessment & Plan (1) Pancreatitis: Recurrent gallstone pancreatitis Was admitted for this previously 6 weeks ago and declined cholecystectomy at that time Upon admission, had elevated LFTs, and lipase at 4163-lipase is now much improved and 548. LFTs also all improving today Lactic acid WNL UA neg, hCG negative MRCP did not show any evidence of choledocholithiasis but did show acute cholecystitis as below -Now status post cholecystectomy on 12/16 (2) Acute calculous cholecystitis: As above -Continue IV Zosyn -Continue IV fluids -Now status post cholecystectomy on 12/16-appreciate general surgery consultatio n and management -Continue pain control, bowel regimen as per surgery -Ambulate -Intraoperative cholangiogram shows possible CBD obstruction-GI plans for ERCP tomorrow -N.p.o. again after midnight (3) Hypokalemia: Being replaced with IV fluids with KCl 20 mEq -Follow BMP in the morning (4) DVT prophylaxis: SCDs Disposition-remain hospitalized for ERCP tomorrow in recovery from cholecystectomy Subjective Patient had cholecystectomy today and is having some abdominal pain and bloating but is about to eat a full liquids diet for dinner. Denies nausea. Denies chest pain or any other concerns. Neuro Review of Systems Review of Systems: All systems reviewed & are unremarkable except as noted in HPI & below Physical Exam Constitutional: WD/WN, vitals as above Eyes: + anicteric sclerae Neck: trachea midline, no thyromegaly Respiratory: normal respiratory effort, lungs clear to auscultation Cardiovascular: RRR, no murmur, no edema Gastrointestinal (Abdomen): Inspection/Auscultation: + hypoactive bowel sounds; + abdomen abnormal to inspection (Laparoscopic surgical sites intact with small amount of dried blood on Steri-Strips) Percussion/Palpation: + abdomen tender (Minimally at surgical sites without guarding or rebound) and abdomen soft Musculoskeletal: Extremities: extremities normal to inspection; no cyanosis and no clubbing Skin: no rashes, warm and dry Neurologic: moves all extremities and awake; no focal motor deficits Psychiatric: A+Ox3, euthymic affect Results & Data Vital Signs (Past 12 Hours) Vital Signs Temp Pulse Pulse Resp BP Pulse Ox 12/16/18 17:00 36 C L 76 15 139/90 94 12/16/18 15:54 36.9 C 75 16 135/89 12/16/18 15:24 36.6 C 72 16 133/91 12/16/18 14:50 37.0 C 66 16 130/81 95 12/16/18 14:35 36.4 C L 68 18 129/80 97 12/16/18 14:25 67 18 127/84 100 12/16/18 14:15 61 18 131/84 100 12/16/18 14:07 36.0 C L 80 22 135/83 100 12/16/18 11:36 36.9 C 79 16 135/85 98 12/16/18 07:30 37.0 C 74 16 105/69 95 Laboratory Results 12/16/18 12/16/18 12/16/18 Range/Units 10:09 05:52 05:52 WBC (4.8-10.8) K/uL RBC (4.2-5.4) M/uL Hgb (12.0-16.0) g/dL Hct (37-47) % MCV (80-100) fL MCH (25-34) pg MCHC (32-36) g/dL RDW Std Deviation (36.4-46.3) fL RDW Coeff of Joss[place] (11.5-14.5) % Plt Count (130-400) K/uL MPV (7.4-10.4) fL Immature Gran % (Auto) % Neut % (Auto) % Lymph % (Auto) % [place] % (Auto) % Eos % (Auto) % Baso % (Auto) % Immature Gran # (Auto) (0.00-0.02) K/uL Neut # (Auto) (1.4-6.5) K/uL Lymph # (Auto) (1.2-3.4) K/uL [place] # (Auto) (0.11-0.59) K/uL Eos # (Auto) (0-0.5) K/uL Baso # (Auto) (0-0.2) K/uL Sodium 139 (136-145) mmol/L Potassium 3.3 L (3.5-5.1) mmol/L Chloride 111 H (98-107) mmol/L Carbon Dioxide 24 (21-32) mmol/L Anion Gap 4.0 (3-11) BUN 10 (7-18) mg/dl Creatinine 0.69 (0.6-1.2) mg/dl Est Cr Clr Drug Dosing 141.0 ml/min Est GFR ( Amer) 127.1 Est GFR (Non-Af Amer) 109.7 BUN/Creatinine Ratio 14.1 (10-20) Glucose 73 (70-99) mg/dl Calcium 7.8 L (8.5-10.1) mg/dl Phosphorus 2.6 (2.5-4.9) mg/dl Magnesium 2.1 (1.8-2.4) mg/dl Total Bilirubin 0.9 (0.2-1) mg/dl Direct Bilirubin 0.2 (0-0.2) mg/dl AST 47 H (15-37) U/L ALT 213 H (12-78) U/L Alkaline Phosphatase 119 H (45-117) U/L Total Protein 6.6 (6.4-8.2) gm/dl Albumin 3.1 L (3.4-5.0) gm/dl Lipase 548 H (73-393) U/L HCG, Qual Negative (Negative) 12/16/18 Range/Units 05:52 WBC 8.82 (4.8-10.8) K/uL RBC 4.16 L (4.2-5.4) M/uL Hgb 12.4 (12.0-16.0) g/dL Hct 36.9 L (37-47) % MCV 88.7 (80-100) fL MCH 29.8 (25-34) pg MCHC 33.6 (32-36) g/dL RDW Std Deviation 45.2 (36.4-46.3) fL RDW Coeff of Josseline 13.9 (11.5-14.5) % Plt Count 284 (130-400) K/uL MPV 9.8 (7.4-10.4) fL Immature Gran % (Auto) 0.3 % Neut % (Auto) 66.0 % Lymph % (Auto) 21.5 % [place] % (Auto) 9.5 % Eos % (Auto) 2.5 % Baso % (Auto) 0.2 % Immature Gran # (Auto) 0.03 H (0.00-0.02) K/uL Neut # (Auto) 5.81 (1.4-6.5) K/uL Lymph # (Auto) 1.90 (1.2-3.4) K/uL [place] # (Auto) 0.84 H (0.11-0.59) K/uL Eos # (Auto) 0.22 (0-0.5) K/uL Baso # (Auto) 0.02 (0-0.2) K/uL Sodium (136-145) mmol/L Potassium (3.5-5.1) mmol/L Chloride (98-107) mmol/L Carbon Dioxide (21-32) mmol/L Anion Gap (3-11) BUN (7-18) mg/dl Creatinine (0.6-1.2) mg/dl Est Cr Clr Drug Dosing ml/min Est GFR ( Amer) Est GFR (Non-Af Amer) BUN/Creatinine Ratio (10-20) Glucose (70-99) mg/dl Calcium (8.5-10.1) mg/dl Phosphorus (2.5-4.9) mg/dl Magnesium (1.8-2.4) mg/dl Total Bilirubin (0.2-1) mg/dl Direct Bilirubin (0-0.2) mg/dl AST (15-37) U/L ALT (12-78) U/L Alkaline Phosphatase (45-117) U/L Total Protein (6.4-8.2) gm/dl Albumin (3.4-5.0) gm/dl Lipase (73-393) U/L HCG, Qual (Negative) PG Care Time/CCT Total # of Minutes Spent Total Time Spent with Patient: Total time spent is greater than 50% in coordination of care (as documented) at patient's floor/unit and/or counseling patient: (1) Pancreatitis Acute pancreatitis complication: unspecified Chronicity: acute Pancreatitis type: unspecified pancreatitis type Qualified Code(s): K85.90 - Acute pancreatitis without necrosis or infection, unspecified
--- NOTE | 2018-12-16 19:03 | Progress Note ---
Date of Service December 16, 2018 Subjective Patient has CBD stone seen on IOC today.Please keep NPO after midnight for ERCP tomorrow. Results & Data Vital Signs (Past 12 Hours) Vital Signs Temp Pulse Pulse Resp BP Pulse Ox 12/16/18 17:00 36 C L 76 15 139/90 94 12/16/18 15:54 36.9 C 75 16 135/89 12/16/18 15:24 36.6 C 72 16 133/91 12/16/18 14:50 37.0 C 66 16 130/81 95 12/16/18 14:35 36.4 C L 68 18 129/80 97 12/16/18 14:25 67 18 127/84 100 12/16/18 14:15 61 18 131/84 100 12/16/18 14:07 36.0 C L 80 22 135/83 100 12/16/18 11:36 36.9 C 79 16 135/85 98 12/16/18 07:30 37.0 C 74 16 105/69 95
[2018-12-16] MEDS: OXYCODONE/ACETAMINOPHEN 5mg/325mg TAB PO PRN (19:44)
[2018-12-17] MEDS: NSS + 20MEQ KCL 20 MEQ/1,000 ML BAG IV SCH ×3 (03:25→22:28)
[2018-12-17] MEDS: KETOROLAC 30 MG/ML VIAL IV PRN ×2 (03:25→11:10)
[2018-12-17] MEDS: PIPERACILLIN/TAZOBACTAM 4.5 GM in DEXTROSE 5% 100 ML IV SCH ×2 (03:25→11:15)
[2018-12-17 06:48] LABS: Albumin Level 2.8 gm/dl (3.4-5.0); BUN Creatinine Ratio 10.9 (10-20); Creatinine Clr Calc Pharmacy 162.1 ml/min; Est GFR (African American) 133.1; Est GFR (Non-African American) 114.8; Potassium 3.6 mmol/L (3.5-5.1)
[2018-12-17 06:51] LABS: Albumin Globulin Ratio 0.8 (0.9-2); Bilirubin,Total 0.6 mg/dl (0.2-1); Globulin 3.3 gm/dl (2.5-4.0); Total Protein 6.1 gm/dl (6.4-8.2)
[2018-12-17] MEDS ORDERED: INDOMETHACIN 50 MG SUPP PR ONE ×2 (08:28→14:57)
--- NOTE | 2018-12-17 08:34 | Gastroenterology Progress Note ---
Date of Service December 17, 2018 Assessment & Plan (1) Acute calculous cholecystitis: (2) Pancreatitis: Pt is a 38 y/o female w suspected gallstone pancreatitis, cholecystitis, POD 1 s/p lap cholecystectomy. Though MRCP was negative for CBD obstruction, it's noted on intra op cholangiogram she may have CBD stone vs air bubble. Her LFTs are starting to normalize - Continue IV antibx coverage - NPO for ERCP in OR by Dr. Plaza this afternoon - Monitor LFTs - GI will give further recs after ERCP is completed Supervising Physician Co-Signing Physician Notes I performed a history and physical examination of the patient, including specifically on physical exam - soft, nontender abdomen. I have discussed the patient's management with eJnae. Please refer to the nurse practitioner's note for the documented findings and plan of care. ERCP today. I explained risk, benefit and alternatives and patient agreed. Subjective Pt is POD 1 s/p lap cholecystectomy. She has generalized abd discomfort. Able to pass flatus, denies N/V. Had been NPO after midnight. Noted her LFTs are starting to normalize. Her intraop cholangiogram showed possible stone in CBD vs air bubble. We are planning for ERCP today. Review of Systems Review of Systems: All systems reviewed & are unremarkable except as noted in HPI & below Physical Exam Constitutional: WD/WN, vitals as above well groomed, cooperative and comfortable Eyes: PERRL, conjunctivae normal, anicteric sclerae ENMT: external ear and nose normal, oropharynx normal Respiratory: normal respiratory effort, lungs clear to auscultation Cardiovascular: RRR, no murmur, no edema Gastrointestinal (Abdomen): lap marek trochar insertion sites w steri strip, old blood noted on wound. TTP generalized, hypoactive BS. Skin: no rashes, warm and dry no jaundice Neurologic: Motor/Sensory: no asterixis Psychiatric: A+Ox3, euthymic affect Lymphatic: no lymphedema Results & Data Vital Signs (Past 12 Hours) Vital Signs Temp Pulse Resp BP Pulse Ox 12/17/18 07:27 36.9 C 75 16 134/87 12/17/18 03:58 36.5 C 75 18 138/87 93 12/16/18 22:58 36.7 C 105 H 20 130/88 94 (1) Pancreatitis Acute pancreatitis complication: unspecified Chronicity: acute Pancreatitis type: unspecified pancreatitis type Qualified Code(s): K85.90 - Acute pancreatitis without necrosis or infection, unspecified
--- NOTE | 2018-12-17 10:25 | Anesthesiology Consultation ---
Date of Service December 17, 2018 Assessment & Plan (1) Encounter for pre-operative examination: Chart Review Chart Review: Acceptable Risk for Surgery Consults Requested none ASA ASA2 Proposed Anesthesia Anesthesia Type: General Risk / Benefits Reviewed With: PT / POA / Parent / Guardian, Accepts Plan and Informed Consent Obtained History Surgery Operation Date: 12/16/18 10:25 Proposed Procedures p Laparoscopic Cholecystectomy with Cholangiogram - Jimmie Fletcher MD Operation Date: 12/17/18 09:50 Proposed Procedures p Endoscopic Retrograde Cholangiopancreatogram - Terese Plaza MD Height/Weight Height: 5 ft 6.5 in Weight: 113.3 kg Allergies Allergy/AdvReac Type Severity Reaction Status Date / Time erythromycin base Allergy Intermediate Verified 12/16/18 11:47 procaine [From Novocain] AdvReac Intermediate Patient Unverified 12/15/18 10:51 states it just doesn't work tuberculin,PPD,multi-puncture AdvReac Intermediate red~itchy~s Unverified 12/15/18 10:51 wollen Medications Home Medications Medication Instructions Recorded Confirmed Last Taken No Known Home Medications 12/15/18 12/15/18 Unknown Active Medications Generic Name Dose Route Start Last Admin Trade Name Freq PRN Reason Stop Dose Admin Potassium Chloride/Sodium Chloride 20 meq in 1,000 mls @ 100 mls/hr 12/15/18 18:15 12/17/18 11:16 Normal Saline W/20 Meq Kcl IV 01/14/19 18:14 100 mls/hr .Q10H PARK Administration Piperacillin Sod/Tazobactam 120 mls @ 30 mls/hr 12/15/18 19:00 12/17/18 11:15 Sod 4.5 gm/ Dextrose IV 12/19/18 23:59 30 mls/hr Q8H PARK Administration Protocol Ketorolac Tromethamine 30 mg 12/15/18 17:39 12/17/18 11:10 Toradol IV 12/20/18 17:38 30 mg Q6H PRN Administration Pain Oxycodone/Acetaminophen 1 tab 12/16/18 15:08 12/16/18 19:44 Percocet 5mg/325mg PO 12/30/18 15:07 1 tab Q4H PRN Administration Pain NPO Date Last Intake of Fluids: 12/15/18 Time Last Intake of Fluids: 00:00 Date Last Intake of Solids: 12/15/18 Time Last Intake of Solids: 00:00 Past Medical History Medical History No significant past medical history (Chronic) Pancreatitis Exercise / Class Metabolic Activity III < 4 Walking/Shop/Light housework Past Family History Family History Other Cancer Diabetes Past Surgical History Surgical History History of cholecystectomy Past Anesthesia History No Hx of Anesthesia Complications History of PONV No Hx of PONV Social History Smoking Status: Never smoker Hx Alcohol Use: No Hx Substance Use: No substance use type: does not use Review of Systems Negative for chest pain or shortness of breath. Positive for new onset rash, covering from neck to legs. Patient reports rash is itchy. Significant for petechia. Physical Exam Vital Signs Last Vital Signs Temp 36.7 C 12/17/18 14:05 Pulse 70 12/17/18 14:05 Resp 16 12/17/18 14:05 BP 144/93 H 12/17/18 14:05 Pulse Ox 98 12/17/18 14:05 Constitutional + obese ENMT Mouth: no TMJ abnormality and oral opening not small Thyromental Distance: < 3.5 Finger Breadths Mallampati Class: II Neck normal visual inspection; neck extension not limited Respiratory normal respiratory effort Auscultation: lungs clear to auscultation bilaterally Cardiovascular Rate/Rhythm: regular rate and regular rhythm Heart Sounds: no murmur Skin + rash (Suspected drug rash) Neurologic moves all extremities Psychiatric Orientation: alert and oriented x 3 Testing Laboratory Results 12/16/18 05:52 12/17/18 05:48 Urine Color Yellow 12/15/18 12:55 Urine Appearance Clear (Clear) 12/15/18 12:55 Urine pH 7.5 (4.5-7.5) 12/15/18 12:55 Ur Specific [place] 1.039 (1.000-1.030) H 12/15/18 12:55 Urine Protein Negative (Negative) 12/15/18 12:55 Urine Glucose (UA) Negative (Negative) 12/15/18 12:55 Urine Ketones Trace (Negative) H 12/15/18 12:55 Urine Nitrite Negative (Negative) 12/15/18 12:55 Ur Leukocyte Esterase Negative (Negative) 12/15/18 12:55 12/15/18 11:02 Aerobic Blood Culture - Preliminary Blood No growth in Aerobic bottle after 48 hours. Anaerobic Blood Culture - Preliminary No growth in Anaerobic bottle after 48 hours. 12/15/18 11:10 Aerobic Blood Culture - Preliminary Blood No growth in Aerobic bottle after 48 hours. Anaerobic Blood Culture - Preliminary No growth in Anaerobic bottle after 48 hours. Electrocardiogram Date: 11/04/18 Findings: + NSR @ (65) and + NSST changes Echocardiogram Date: 11/05/18 LV Function: normal Valvular Disease: + no significant valvular disease
[2018-12-17] MEDS ORDERED: DiphenhydrAMINE HCL 50 MG/ML VIAL IV STA (10:58)
--- NOTE | 2018-12-17 11:36 | Surgery Progress Note ---
Date of Service December 17, 2018 Assessment & Plan (1) Pancreatitis: Gallstone pancreatitis with acute cholecystitis POD # 1 s/p laparoscopic cholecystectomy with IOC IOC showing possible distal common bile duct stone -vitals stable, afebrile - Improvement of LFTS and t.bili and lipase t. bili 1.1 --> 0.9 --> 0.6 AST 120 --> 47 --> 37 ALT 343 --> 213 --> 151 ALK 151 --> 119 --> 97 Lipase 4169 --> 548 Plan: Going for ERCP today Continue NPO Continue pain management, advised patient she can take oral pain meds as needed IV Benadryl 12.5 mg now for to help with itching . Will change linens given rash and that she uses natural detergent at home, very sensitive Will await ERCP results Likely will stay tonight, possible home tomorrow depending on ERCP results repeat am labs Dr. Fletcher has seen and examined pt, agrees with above Subjective feeling better this morning preop pain resolved, pain at incisions moderate mild nausea last night some itching of abdomen and upper legs going for ERCP today Physical Exam Constitutional: WD/WN, vitals as above no acute distress Gastrointestinal (Abdomen): Inspection/Auscultation: abdomen normal to inspection Percussion/Palpation: + abdomen tender (at incision sites) and abdomen soft; no guarding and abdomen not rigid Skin: + rash (papular rash of the abdomen and upper outer thighs) and + incision (covered with steri strips, dry); no lesions, no ulcers, no induration, no skin tightening and no jaundice Trauma: no abrasion, no laceration, no contusion and no hematoma Psychiatric: A+Ox3, euthymic affect Results & Data Vital Signs (Past 12 Hours) Vital Signs Temp Pulse Resp BP Pulse Ox 12/17/18 07:27 36.9 C 75 16 134/87 12/17/18 03:58 36.5 C 75 18 138/87 93 Laboratory Results 12/17/18 Range/Units 05:48 Sodium 141 (136-145) mmol/L Potassium 3.6 (3.5-5.1) mmol/L Chloride 112 H (98-107) mmol/L Carbon Dioxide 22 (21-32) mmol/L Anion Gap 7.0 (3-11) BUN 7 (7-18) mg/dl Creatinine 0.60 (0.6-1.2) mg/dl Est Cr Clr Drug Dosing 162.1 ml/min Est GFR ( Amer) 133.1 Est GFR (Non-Af Amer) 114.8 BUN/Creatinine Ratio 10.9 (10-20) Glucose 94 (70-99) mg/dl Calcium 8.0 L (8.5-10.1) mg/dl Total Bilirubin 0.6 (0.2-1) mg/dl AST 37 (15-37) U/L ALT 151 H (12-78) U/L Alkaline Phosphatase 97 (45-117) U/L Total Protein 6.1 L (6.4-8.2) gm/dl Albumin 2.8 L (3.4-5.0) gm/dl Globulin 3.3 (2.5-4.0) gm/dl Albumin/Globulin Ratio 0.8 L (0.9-2) (1) Pancreatitis Acute pancreatitis complication: unspecified Chronicity: acute Pancreatitis type: unspecified pancreatitis type Qualified Code(s): K85.90 - Acute pancreatitis without necrosis or infection, unspecified
[2018-12-17] MEDS ORDERED: DEXAMETHASONE SOD INJ 4 MG/ML VIAL ONE (14:37)
[2018-12-17] MEDS ORDERED: LIDOCAINE HCL 2% 2 ML VIAL/AMP(20MG/ML) INFIL ONE (14:37)
[2018-12-17] MEDS ORDERED: ONDANSETRON INJ 2 MG/ML 2 ML VIAL ONE (14:37)
[2018-12-17] MEDS ORDERED: PROPOFOL IV EMULSION 10 MG/ML 20 ML VIAL IV ONE (14:37)
[2018-12-17] MEDS ORDERED: fentaNYL citrate 100 MCG/2 ML VIAL ONE (14:38)
[2018-12-17] MEDS ORDERED: MIDAZOLAM HCL 1 MG/ML 2ML VIAL ONE (14:38)
--- NOTE | 2018-12-17 14:51 | History & Physical Bridge Note ---
Date of Service December 17, 2018 History & Physical Bridge Note I have examined the patient, reviewed the History & Physical and in the interval since the performance of the History & Physical I have noted the following changes of clinical significance: no changes noted
[2018-12-17] MEDS ORDERED: methylPREDNISolone 125 MG/2 ML VIAL IV STA (15:10)
[2018-12-17] MEDS ORDERED: ROCURONIUM BROMIDE 10 MG/ML 5 ML VIAL ONE ×2 (15:13→15:39)
[2018-12-17] MEDS ORDERED: SUCCINYLCHOLINE CHLORIDE 20 MG/ML 10 ML VIAL ONE ×2 (15:14→15:39)
--- NOTE | 2018-12-17 15:23 | Hospitalist Progress Note ---
Date of Service December 17, 2018 Assessment & Plan (1) Pancreatitis: Recurrent gallstone pancreatitis-now resolved Was admitted for this previously 6 weeks ago and declined cholecystectomy at that time Upon admission, had elevated LFTs, and lipase at 4163-lipase and then improved to 548. LFTs also all continuing to improve Lactic acid WNL UA neg, hCG negative MRCP did not show any evidence of choledocholithiasis but did show acute cholecystitis as below -Now status post cholecystectomy on 12/16 IOP with possible choledocholithiasis, going for ERCP today -recovering well from surgery -continue pain control prn (2) Acute calculous cholecystitis: As above -now with drug rash likely secondary to Zosyn--> dc Zosyn and will only restart abx if appears to have cholangitis on ERCP -Continue IV fluids -Now status post cholecystectomy on 12/16-appreciate general surgery consultation and management -Continue pain control, bowel regimen as per surgery -Ambulate -Intraoperative cholangiogram shows possible CBD obstruction-GI plans for ERCP today -advance diet as tolerated after ERCP (3) Hypokalemia: replaced and improved (4) Allergic drug rash: Most likely from Zosyn -stop ZOsyn and added to allergy list -start scheduled benadryl IV, Solu Medrol loading dose and then scheduled dose, scheduled Zantac -follow clinically no evidence of anaphylaxis (5) DVT prophylaxis: SCDs Disposition-remain hospitalized for ERCP and now for drug eruption Subjective Pt developed a rash today around mid to late AM that started in her legs and thighs and has now spread to her abdomen, breasts, and neck as well as upper arms. Denies SOB, throat or tongue swelling, no wheezing. Her abd pain is improved today. Rash came on after receiving Zosyn but also got toradol Review of Systems Review of Systems: All systems reviewed & are unremarkable except as noted in HPI & below Physical Exam Constitutional: WD/WN, vitals as above Eyes: + anicteric sclerae ENMT: external ear and nose normal, oropharynx normal (no sores in mouth, no tongue or lip edema) Neck: trachea midline, no thyromegaly Respiratory: normal respiratory effort, lungs clear to auscultation Cardiovascular: RRR, no murmur, no edema Gastrointestinal (Abdomen): Inspection/Auscultation: normal bowel sounds; + abdomen abnormal to inspection (Laparoscopic surgical sites intact with small amount of dried blood on Steri-Strips) Percussion/Palpation: abdomen soft; abdomen nontender Musculoskeletal: Extremities: extremities normal to inspection; no cyanosis and no clubbing Skin: + rash (diffuse macular erythematous rash that is fine) rash located on breasts,abdomen diffusely, upper thighs and groins, upper arms, left side of neck Blanching Rash spares palms and soles Neurologic: moves all extremities and awake; no focal motor deficits Psychiatric: A+Ox3, euthymic affect Results & Data Vital Signs (Past 12 Hours) Vital Signs Temp Pulse Resp BP Pulse Ox 12/17/18 14:05 36.7 C 70 16 144/93 H 98 12/17/18 07:27 36.9 C 75 16 134/87 12/17/18 03:58 36.5 C 75 18 138/87 93 Laboratory Results 12/17/18 Range/Units 05:48 Sodium 141 (136-145) mmol/L Potassium 3.6 (3.5-5.1) mmol/L Chloride 112 H (98-107) mmol/L Carbon Dioxide 22 (21-32) mmol/L Anion Gap 7.0 (3-11) BUN 7 (7-18) mg/dl Creatinine 0.60 (0.6-1.2) mg/dl Est Cr Clr Drug Dosing 162.1 ml/min Est GFR ( Amer) 133.1 Est GFR (Non-Af Amer) 114.8 BUN/Creatinine Ratio 10.9 (10-20) Glucose 94 (70-99) mg/dl Calcium 8.0 L (8.5-10.1) mg/dl Total Bilirubin 0.6 (0.2-1) mg/dl AST 37 (15-37) U/L ALT 151 H (12-78) U/L Alkaline Phosphatase 97 (45-117) U/L Total Protein 6.1 L (6.4-8.2) gm/dl Albumin 2.8 L (3.4-5.0) gm/dl Globulin 3.3 (2.5-4.0) gm/dl Albumin/Globulin Ratio 0.8 L (0.9-2) PG Care Time/CCT Total # of Minutes Spent Total Time Spent with Patient: Total time spent is greater than 50% in coordination of care (as documented) at patient's floor/unit and/or counseling patient: (1) Pancreatitis Acute pancreatitis complication: unspecified Chronicity: acute Pancreatitis type: unspecified pancreatitis type Qualified Code(s): K85.90 - Acute pancreatitis without necrosis or infection, unspecified
[2018-12-17] MEDS ORDERED: DiphenhydrAMINE HCL 50 MG/ML VIAL ONE (15:24)
[2018-12-17] MEDS ORDERED: methylPREDNISolone 125 MG in SYRINGE 0 ML IV ONE (15:30)
[2018-12-17] MEDS ORDERED: LARYING-O-JET KIT (LTA) ONE (15:39)
[2018-12-17] MEDS ORDERED: PROMETHAZINE HCL 12.5 MG in SODIUM CHLORIDE 0.9% 50 ML IV PRN (15:42)
[2018-12-17] MEDS ORDERED: fentaNYL citrate 100 MCG/2 ML VIAL IV PRN (15:42)
[2018-12-17] MEDS ORDERED: ePHEDrine sulfate 50 MG/ML AMP IV PRN (15:42)
[2018-12-17] MEDS ORDERED: ATROPINE SULFATE 0.1 MG/ML 10ML SYR IV PRN (15:42)
[2018-12-17] MEDS ORDERED: ONDANSETRON INJ 2 MG/ML 2 ML VIAL IV PRN (15:42)
[2018-12-17] MEDS ORDERED: HYDROmorphone INJ 2 MG/ML SYR/VIAL IV PRN (15:42)
--- NOTE | 2018-12-17 15:50 | Operative Report ---
Post Operative Report Pre & Post Diagnosis Operation Date: 12/16/18 10:25 Pre-Op Diagnosis: History of Pancreatitis, Cholelithiasis Post-Op Diagnosis: History of Pancreatitis, Cholelithiasis Operation Date: 12/17/18 09:50 Pre-Op Diagnosis: Post operative cholecystectomy Post-Op Diagnosis: post operative cholecystectomy I identified the patient and participated in the time-out.: Yes Procedure Operation Date: 12/16/18 10:25 Actual Procedures p Laparoscopic Cholecystectomy with Cholangiogram(Not Applicable) - Jimmie Fletcher MD Operation Date: 12/17/18 09:50 Actual Procedures p Endoscopic Retrograde Cholangiopancreatogram(Not Applicable) - Terese Plaza MD Surgeon Terese Plaza MD Security Assistant Silvana Vega PA-C Estimated Blood Loss 0 Findings See Below (Sludge removed. Sphincterotomy and sphincteroplasty done) Specimens None Description of Procedure ERCP I attest to the content of the Intraoperative Record and any orders documented therein. Any exceptions are noted below.
--- NOTE | 2018-12-17 16:07 | GI REPORT ---
Patient Name: Shirley Arita Procedure Date: 12/17/2018 2:26 PM Date of : 1980 Admit Type: Inpatient Age: 38 Gender: Female Attending MD: Terese Plaza MD Procedure: ERCP Providers: Terees Plaza MD Referring MD: Mir Salmon M.d., Ella Garcia Md, Jimmie Fletcher MD, Dung Ye MD Indications: Filling defect on intraoperative cholangiogram, For therapy of bile duct stone(s) Medicines: General Anesthesia, Propofol per Anesthesia Complications: No immediate complications. Estimated Blood Loss: Estimated blood loss: none. Procedure: Pre-Anesthesia Assessment: - Prior to the procedure, a History and Physical was performed, and patient medications, allergies and sensitivities were reviewed. The patient's tolerance of previous anesthesia was reviewed. - The risks and benefits of the procedure and the sedation options and risks were discussed with the patient. All questions were answered and informed consent was obtained. - Patient identification and proposed procedure were verified prior to the procedure by the physician and the nurse. The procedure was verified in the procedure room. - Pre-procedure physical examination revealed no contraindications to sedation. After obtaining informed consent, the scope was passed under direct vision. Throughout the procedure, the patient's blood pressure, pulse, and oxygen saturations were monitored continuously. The Scope was introduced through the mouth, and advanced to the duodenum and used to inject contrast into the bile duct. The ERCP was accomplished without difficulty. The patient tolerated the procedure well. Findings: A exterior door installer film of the abdomen was obtained. Surgical clips, consistent with a previous cholecystectomy, were seen in the area of the right upper quadrant of the abdomen. The esophagus was successfully intubated under direct vision. The scope was advanced to a normal major papilla in the descending duodenum without detailed examination of the pharynx, larynx and associated structures, and upper GI tract. The upper GI tract was grossly normal. The major papilla was erythematous (possibly due to recent passage of a stone) and appeared stenotic. A 0.035 inch straight standard wire was passed into the biliary tree from the first attempt. The Fusion OMNI sphincterotome was passed over the guidewire and the bile duct was then deeply cannulated. Contrast was injected. I personally interpreted the bile duct images. Ductal flow of contrast was adequate. Image quality was adequate. Contrast extended to the main bile duct. Opacification of the main bile duct and all intrahepatic branches was successful. The maximum diameter of the ducts was 6 mm. Bile duct orifice was successfully dilated with a 6 mm balloon dilator. The biliary tree was swept with an 11.5 mm balloon starting at the bifurcation. Sludge was swept from the duct. Occlusion cholangiogram showed no filling defects. Indomethacin 100 mg was given via suppository to decrease the risk of post-ERCP pancreatitis (PEP). Pancreatic duct was not cannulated nor injected with contrast. Impression: - Benign biliary papillary stenosis. This was treated with sphincterotomy and balloon sphincteroplasty. - The biliary tree was swept and sludge was found. Recommendation: - Return patient to [facility] for [facility] care. - Avoid aspirin and nonsteroidal anti-inflammatory medicines for 5 days. - Advance diet as tolerated. - Recall GI if needed. Terese Plaza MD 12/17/2018 4:06:18 PM This report has been signed electronically. Note Initiated On: 12/17/2018 2:26 PM Number of Addenda: 0 I attest to the content of the Intraoperative Record and orders documented therein, exceptions below {[id number]}
--- NOTE | 2018-12-17 16:33 | Anesthesiology Progress Note ---
Date of Service December 17, 2018 Anesthesia Post Procedure Vital Signs Vital Signs: Temp Pulse Pulse Resp BP Pulse Ox 12/17/18 16:25 77 18 131/81 97 12/17/18 16:15 66 18 142/100 H 98 12/17/18 16:05 63 16 136/96 100 12/17/18 15:57 36.8 C 83 20 133/99 98 12/17/18 14:05 36.7 C 70 16 144/93 H 98 12/17/18 07:27 36.9 C 75 16 134/87 12/17/18 03:58 36.5 C 75 18 138/87 93 12/16/18 22:58 36.7 C 105 H 20 130/88 94 12/16/18 17:00 36 C L 76 15 139/90 94 Pain Intensity Abdomen: Pain Intensity: 3 Transfer of Care Handoff Completed per policy Notes Mental Status: alert / awake / arousable and participated in evaluation Patient Amnestic to Procedure: Yes Nausea / Vomiting: adequately controlled Pain: adequately controlled Airway Patency, RR, SpO2: stable & adequate BP & HR: stable & adequate Hydration State: stable & adequate Anesthetic Complications: no major complications apparent and Pt Satisfied with anesthetic care
--- NOTE | 2018-12-17 16:45 | Fluoroscopy Report ---
FL ERCP biliary ductal CLINICAL HISTORY: 38 years-old Female presenting with for ercp. TECHNIQUE: Fluoroscopy was provided for endoscopic retrograde cholangiopancreatography. 8 fluoroscopi c image(s) recorded. COMPARISON: 12/16/2018 an MRCP from 12/15/2018. FINDINGS: Procedure: Endoscope projects over the descending duodenum. A catheter was inserted into the common b ile duct advanced to the common hepatic duct at the hilum. Cholecystectomy clips noted. The ducts wer e opacified with contrast. A balloon was used to clear the distal duct. No filling defect at the conc lusion of the exam. Peritoneal spillage: No evidence of peritoneal spillage of contrast. Extrahepatic bile ducts: The common bile duct is normal in course and caliber. There are no filling d efects seen within the common bile duct to suggest a retained stone at the conclusion of the procedur e. Contrast extends into the small bowel. Intrahepatic bile ducts: There is no intrahepatic bile duct dilatation. Dose area product (mGy.cm^2): 3.8055. Fluoroscopy time: 40.8 seconds. Number or time of high level fluoroscopy (HLF), digital spot, or digital subtraction images: 0. IMPRESSION: 1. Balloon clearance of the distal common bile duct. No choledocholithiasis at the conclusion of the exam. 2. Status post cholecystectomy. Electronically signed by: Samir Guevara M.D. 12/17/2018 4:44 PM
[2018-12-17] MEDS: DiphenhydrAMINE HCL 50 MG/ML VIAL IV SCH ×2 (16:54→19:17)
[2018-12-17] MEDS: OXYCODONE/ACETAMINOPHEN 5mg/325mg TAB PO PRN (19:20)
[2018-12-17] MEDS: methylPREDNISolone 60 MG in SYRINGE 0 ML IV SCH (22:25)
[2018-12-18] MEDS: DiphenhydrAMINE HCL 50 MG/ML VIAL IV SCH ×2 (00:01→06:08)
[2018-12-18] MEDS: OXYCODONE/ACETAMINOPHEN 5mg/325mg TAB PO PRN ×4 (00:05→15:25)
[2018-12-18] MEDS: methylPREDNISolone 60 MG in SYRINGE 0 ML IV SCH ×2 (06:08→13:15)
[2018-12-18] MEDS: NSS + 20MEQ KCL 20 MEQ/1,000 ML BAG IV SCH (06:08)
[2018-12-18 06:19] LABS: Albumin Level 3.1 gm/dl (3.4-5.0); BUN Creatinine Ratio 13.3 (10-20); Bilirubin Direct 0.1 mg/dl (0-0.2); Bilirubin,Total 0.4 mg/dl (0.2-1); Calcium 8.2 mg/dl (8.5-10.1); Creatinine Clr Calc Pharmacy 162.1 ml/min; Est GFR (African American) 133.1; Est GFR (Non-African American) 114.8; Total Protein 6.8 gm/dl (6.4-8.2)
--- NOTE | 2018-12-18 08:14 | Anesthesiology Progress Note ---
Date of Service December 18, 2018 Anesthesia Post Procedure Vital Signs Vital Signs: Temp Pulse Pulse Resp BP Pulse Ox 12/18/18 07:25 36.7 C 56 L 16 146/86 H 96 12/18/18 02:45 36.5 C 59 L 16 129/86 95 12/17/18 23:26 36.6 C 64 16 134/63 94 12/17/18 21:13 72 121/94 12/17/18 19:53 36.8 C 72 18 159/111 H 95 12/17/18 18:45 37.3 C 73 18 157/98 H 94 12/17/18 17:45 36.9 C 65 20 135/89 95 12/17/18 17:13 36.9 C 61 18 131/89 93 12/17/18 16:45 36.3 C L 59 L 16 135/83 96 12/17/18 16:35 36.8 C 72 20 129/84 97 12/17/18 16:25 77 18 131/81 97 12/17/18 16:15 66 18 142/100 H 98 12/17/18 16:05 63 16 136/96 100 12/17/18 15:57 36.8 C 83 20 133/99 98 12/17/18 14:05 36.7 C 70 16 144/93 H 98 Pain Intensity Abdomen: Pain Intensity: 3 Notes Mental Status: alert / awake / arousable and participated in evaluation Patient Amnestic to Procedure: Yes Nausea / Vomiting: adequately controlled Pain: adequately controlled Airway Patency, RR, SpO2: stable & adequate BP & HR: stable & adequate Hydration State: stable & adequate Anesthetic Complications: no major complications apparent and Pt Satisfied with anesthetic care
--- NOTE | 2018-12-18 08:48 | Gastroenterology Progress Note ---
Date of Service December 18, 2018 Assessment & Plan (1) Acute calculous cholecystitis: (2) Pancreatitis: Pt is a 38 y/o female w suspected gallstone pancreatitis, cholecystitis, POD 2 s/p lap cholecystectomy. Though MRCP was negative for CBD obstruction, it's noted on intra op cholangiogram she may have CBD stone vs air bubble. ERCP done on 12/17 showed no stones but sludge in bile duct. This was swept. She had benign biliary papillary stenosis s/p sphincterectomy and balloon sphincteros plasty. LFTs normalizing - Ok to advance diet as tolerated from GI standpoint - Avoid ASA or NSAIDs 5 days after sphincterectomy - GI to sign off; pls recall prn Subjective Pt feels well, no acute events overnight. Denies much abd pain, no n/v. Tolerating FL diet. She is passing flatus, no BMs yet today Review of Systems Review of Systems: All systems reviewed & are unremarkable except as noted in HPI & below Physical Exam Constitutional: WD/WN, vitals as above well groomed, cooperative and comfortable Eyes: PERRL, conjunctivae normal, anicteric sclerae ENMT: external ear and nose normal, oropharynx normal Respiratory: normal respiratory effort, lungs clear to auscultation Cardiovascular: RRR, no murmur, no edema Gastrointestinal (Abdomen): Inspection/Auscultation: + hypoactive bowel sounds Percussion/Palpation: abdomen soft; abdomen nontender trochar insertion sites w steri strip. Skin: no rashes, warm and dry no jaundice Neurologic: Motor/Sensory: no asterixis Psychiatric: A+Ox3, euthymic affect Lymphatic: no lymphedema Results & Data Vital Signs (Past 12 Hours) Vital Signs Temp Pulse Resp BP Pulse Ox 12/18/18 07:25 36.7 C 56 L 16 146/86 H 96 12/18/18 02:45 36.5 C 59 L 16 129/86 95 12/17/18 23:26 36.6 C 64 16 134/63 94 12/17/18 21:13 72 121/94 (1) Pancreatitis Acute pancreatitis complication: unspecified Chronicity: acute Pancreatitis type: unspecified pancreatitis type Qualified Code(s): K85.90 - Acute pancreatitis without necrosis or infection, unspecified
[2018-12-18] MEDS ORDERED: DiphenhydrAMINE HCL 50 MG/ML VIAL IV PRN (09:09)
[2018-12-18] MEDS ORDERED: CETIRIZINE HCL 10 MG TABLET PO SCH (09:15)
--- NOTE | 2018-12-18 14:19 | Discharge Summary ---
Date of Service December 18, 2018 Admission HPI Per Admitting Provider 38 y/o F c/o epigastric pain. Pt was admitted in October with similar sx and dx with pancreatitis thought related to gallstones. She was recommended to undergo a marek, but declined at that time after feeling improved. She has not been eating fatty or greasy foods and has had no pain until Saturday when she had sudden onset of epigastric pain. She restricted her PO intake but has continued to have worsening pain. She had several episodes of emesis yesterday and has not eaten anything since yesterday AM. She is bloated. She felt like she might have a fever today. Pt denies SOB, chest pain, c/d, LE pain or swelling. Principal Diagnosis Acute gallstone pancreatitis, acute calculous cholecystitis Drug rash Discharge Exam Constitutional WD/WN, vitals as above Eyes + anicteric sclerae ENMT external ear and nose normal, oropharynx normal (no sores in mouth, no tongue or lip edema) Neck trachea midline, no thyromegaly Respiratory normal respiratory effort, lungs clear to auscultation Cardiovascular RRR, no murmur, no edema Gastrointestinal (Abdomen) Inspection/Auscultation: normal bowel sounds; + abdomen abnormal to inspection (Laparoscopic surgical sites intact with small amount of dried blood on Steri- Strips) Percussion/Palpation: abdomen soft; abdomen nontender Musculoskeletal Extremities: extremities normal to inspection; no cyanosis and no clubbing Skin + rash (diffuse macular erythematous rash much improved) Neurologic moves all extremities and awake; no focal motor deficits Psychiatric A+Ox3, euthymic affect Discharge Data Allergies Allergy/AdvReac Type Severity Reaction Status Date / Time erythromycin base Allergy Intermediate Verified 12/16/18 11:47 piperacillin [From Zosyn] Allergy Intermediate Rash Verified 12/17/18 15:13 tazobactam [From Zosyn] Allergy Intermediate Rash Verified 12/17/18 15:13 methylprednisolone AdvReac Intermediate Agitated Verified 12/18/18 14:08 [From Solu-Medrol] procaine [From Novocain] AdvReac Intermediate Patient Unverified 12/15/18 10:51 states it just doesn't work tuberculin,PPD,multi-puncture AdvReac Intermediate red~itchy~s Unverified 12/15/18 10:51 wollen Consultations 12/15/18 15:03 ED Decision to Admit Stat 12/15/18 17:39 Consult Gastroenterology Routine Consult General Surgery Routine Procedures Performed Operation Date: 12/16/18 10:25 Actual Procedures p Laparoscopic Cholecystectomy with Cholangiogram(Not Applicable) - Jimmie Fletcher MD Operation Date: 12/17/18 09:50 Actual Procedures p Endoscopic Retrograde Cholangiopancreatogram(Not Applicable) - Terese Plaza MD Ordered Studies 12/15/18 10:49 CT abd pelvis IV con only Stat 12/15/18 15:03 MR MRCP Stat 12/16/18 11:15 [place] cholangiogram OR Routine 12/17/18 15:00 [place] ERCP biliary ductal Routine Hospital Course (1) Pancreatitis: Recurrent gallstone pancreatitis-now resolved Was admitted for this previously 6 weeks ago and declined cholecystectomy at that time Upon admission, had elevated LFTs, and lipase at 4163-lipase and then improved to 548. LFTs also all continuing to improve Lactic acid WNL UA neg, hCG negative MRCP did not show any evidence of choledocholithiasis but did show acute cholecystitis as below -Now status post cholecystectomy on 12/16 IOP with possible choledocholithiasis, went for ERCP on 12/17 and had sludge removed from CBD, no stones, and had a benign appearing papillary stenosis that had sphincterotomy -no NSAIDs for 5 days after procedure -recovering well from surgery -continue pain control prn with oxycodone and APAP (2) Acute calculous cholecystitis: As above -developed drug rash likely secondary to Zosyn--> dcd Zosyn nd since no cholangitis on ERCP--> no further abx needed -Now status post cholecystectomy on 12/16-appreciate general surgery consultation and management -Continue pain control, bowel regimen as per surgery -Ambulate -Intraoperative cholangiogram shows possible CBD obstruction- ERCP as above (3) Hypokalemia: replaced and improved (4) Allergic drug rash: Most likely from Zosyn--> much improve after one dose of IV SOluMedrol and used benadryl , Zantac, however had psychosis on steroids--> now resolved -dc to home on Zyrtec and Zantac x 7 days, NO PREDNISONE -stopped ZOsyn and added to allergy list no evidence of anaphylaxis (5) DVT prophylaxis: SCDs Disposition-stable for dc to home Total Time Total Time Spent Total Time Spent (In Minutes): >30 min Total Time Includes: Examination of the Patient, Discharge Planning and Medication Reconciliation Discharge Plan Discharge Items Patient Disposition: Home - Self-Care Reason For Visit: PANCREATITIS Discharge Diagnosis: Gallstone pancreatitis Cholecystitis (inflammation of gallbladder) Drug rash Condition on Discharge: Good Activity: Per Instructions section Non-emergency contact: Primary Care Provider and Surgeon Call non-emergency contact if: you have any medication questions, your symptoms worsen, your pain is not controlled, your pain is worsening, your pain is unusual for you, your pain is concerning for you, you have a fever and your temperature is above 101 Follow-up/Referrals: Crissy Mcgovern MD [Primary Care Provider] - 12/24/18 2:00 pm (Please, follow up at Dr. Moulton's office with her associate, Jenni Caballero PA-C, on SaturdayDecember 24 at 2:00 pm. *If you need to change this appointment, call the office at [phone].) Jimmie Fletcher MD [Physician] - 12/23/18 12:45 pm (Please, follow up with Dr. Jimmie Fletcher (surgeon) on SaturdayDecember 23 at 12:45 pm. *The office is located in [facility]. The address is [address] [place] [address] in [place]. If you need to change this appointment, call the office at [phone].) Diet: Low Fat Addtl Attending Provider Instructions: Post-Surgical ~Discharge Instructions Activity Recommendations: - lifting limitation: (10 pounds for 2 weeks), - exercise/sex/sports limit: (nonstrenuous for 2 weeks), - driving or machine use limit: (none for 1 week), - Shower/bathe limit: (may shower beginning tomorrow) Diet: - Resume previous diet SPECIAL CARE INSTRUCTIONS: - May shower in 24 hours. Let water run over area and pat dry. - Leave steri strips on for one week. - Call the surgeon's office with any questions or concerns - - (ex. temperature higher than 101 degrees F, excessive bleeding or pain). MEDICATIONS: - Resume previous medications unless instructed otherwise by your surgeon. - Ibuprofen 600 mg every 6 hours with food - Percocet 1 every 4 hours, as needed for pain FOLLOW UP VISIT: - If not already scheduled, please call the office to schedule a two week follow-up appointment. Office number Please finish out a 7 day course of Zyrtec and Zantac for your allergic reactio n. Pending Studies at Discharge: Yes (Gallbladder pathology, will be reviewed at follow-up visit) Stand-Alone Forms: Call Back Authorization, [facility] Medications and DC Order Prescriptions: New acetaminophen [Mapap (acetaminophen)] 325 mg Tablet 650 mg PO Q4H PRN (Reason: pain) Qty: 30 RF: 0 cetirizine 10 mg Tablet 10 mg PO QAM Qty: 7 RF: 0 oxycodone-acetaminophen [Percocet] 5-325 mg Tablet 1 tab PO Q4H PRN (Reason: severe pain) Qty: 15 RF: 0 ranitidine HCl 150 mg Tablet 150 mg PO BID Qty: 14 RF: 0 No Action No Known Home Medications RF: 0 Discharge Orders: Discharge Order (Routine); Ordered 12/18/18 Ordered By: Ella Garcia Admission Data Admit Date/Time: 12/15/18 15:55 Attending Provider: Ella Garcia Admit Provider: Silvana Ingram Primary Care Provider: Crissy Mcgovern V. Other Providers: Silvana Ingram ; Marek Dallas ; Jose J Granado
--- NOTE | 2018-12-18 14:48 | Surgery Progress Note ---
Date of Service December 18, 2018 Assessment & Plan (1) Pancreatitis: Gallstone pancreatitis with acute cholecystitis POD # 2 s/p laparoscopic cholecystectomy with IOC IOC showing possible distal common bile duct stone POD # 1 s/p ERCP, no choledocholithiasis however benign biliary stricture and sludge in common duct -vitals stable, afebrile - Improvement of LFTS and t.bili and lipase t. bili 1.1 --> 0.9 --> 0.6 --> 0.4 AST 120 --> 47 --> 37 --> 37 ALT 343 --> 213 --> 151 --> 135 ALK 151 --> 119 --> 97 --> 111 Lipase 4169 --> 548 Plan: Okay from surgical standpoint for discharge discharge instructions reviewed f/u surgical office in [address] Fletcher has seen and examined pt, agrees with above Subjective feeling much better still having pain at incision sites preop pain resolved tolerating diet no n/v Physical Exam Constitutional: WD/WN, vitals as above no acute distress Respiratory: normal respiratory effort Skin: no rashes, warm and dry Psychiatric: A+Ox3, euthymic affect Results & Data Vital Signs (Past 12 Hours) Vital Signs Temp Pulse Resp BP Pulse Ox 12/18/18 07:25 36.7 C 56 L 16 146/86 H 96 Laboratory Results 12/18/18 Range/Units 05:17 Sodium 141 (136-145) mmol/L Potassium 4.0 (3.5-5.1) mmol/L Chloride 112 H (98-107) mmol/L Carbon Dioxide 23 (21-32) mmol/L Anion Gap 6.0 (3-11) BUN 8 (7-18) mg/dl Creatinine 0.60 (0.6-1.2) mg/dl Est Cr Clr Drug Dosing 162.1 ml/min Est GFR ( Amer) 133.1 Est GFR (Non-Af Amer) 114.8 BUN/Creatinine Ratio 13.3 (10-20) Glucose 109 H (70-99) mg/dl Calcium 8.2 L (8.5-10.1) mg/dl Total Bilirubin 0.4 (0.2-1) mg/dl Direct Bilirubin 0.1 (0-0.2) mg/dl AST 37 (15-37) U/L ALT 135 H (12-78) U/L Alkaline Phosphatase 111 (45-117) U/L Total Protein 6.8 (6.4-8.2) gm/dl Albumin 3.1 L (3.4-5.0) gm/dl (1) Pancreatitis Acute pancreatitis complication: unspecified Chronicity: acute Pancreatitis type: unspecified pancreatitis type Qualified Code(s): K85.90 - Acute pancreatitis without necrosis or infection, unspecified
== END 2018-12-18 18:53 | disposition home or self-care (01) | DRG 414 ==
LOC: ED 10:04 → 3W 15:55 → SUATTDRO 15:55 → 3W 17:16